=== PATIENT | male | born 1945 | race Caucasian/White ===

== ENCOUNTER 2023-02-15 12:50 | Inpatient (IN) | payer MEDICARE, SELFPAY ==
[2023-02-15] VITALS (12 sets, daily range): BP systolic 163–206; BP diastolic 75–103; PULSE 78–102; RESP 13–17; TEMP 36.3–37.4; O2SAT 96–100; BMI 22.1; BMI 23.0
--- NOTE | 2023-02-15 13:08 | ECG_ITS ---
APPROVED REPORT Exam: Resting ECG HR:100 bpm ECG Measurements Heart Rate 100 AXES WA 187 P 99 QRSd 110 QRS 96 QT 309 T -45 QTc 366 Conclusion SINUS TACHYCARDIA BORDERLINE RIGHT AXIS DEVIATION [QRS AXIS > 90] Marked artifact limits interpretation ABNORMAL ECG UNCONFIRMED REPORT Electronically signed by : Alvaro Gonzales MD 02/15/2023 16:28:58
--- NOTE | 2023-02-15 13:15 | PC.NURSE ---
Assumed care of patient at this time
--- NOTE | 2023-02-15 13:21 | XR_ITS ---
FINAL REPORT CLINICAL HISTORY: fall FINDINGS: SINGLE-VIEW CHEST The heart size is normal. The mediastinum is normal. There are linear densities in both hemithoraces, probably due to skin folds. There are posterior left 3rd through through 9th rib fractures, age indeterminate. There is no pneumothorax. IMPRESSION: Posterior left rib fractures, age indeterminate. Reviewed, Interpreted and Dictated by Lucas Skaggs MD Transcribed by Amanda Rodriguez Authenticated and [facility]
--- NOTE | 2023-02-15 13:21 | CT_ITS ---
FINAL REPORT TECHNIQUE: Multiple axial CT images were performed from the foramen magnum to the vertex without enhancement. This study was performed with techniques to keep radiation doses as low as reasonably achievable (ALARA). Individualized dose reduction techniques using automated exposure control or adjustment of mA and/or kV according to the patient's size were employed. CLINICAL HISTORY: fall FINDINGS: The ventricles are enlarged. There is [id number] atrophy. There are extensive changes of chronic microvascular ischemia. There is no evidence of hemorrhage. No masses are identified. No extra-axial fluid is seen. There is abnormal soft tissue swelling in the right periorbital region consistent with soft tissue contusion. There is mucoperiosteal thickening and air-fluid level in the right maxillary sinus consistent with acute and chronic maxillary sinusitis. IMPRESSION: Atrophy and chronic changes without acute process. Acute and chronic maxillary sinusitis. Soft tissue contusion in the right periorbital region. Reviewed, Interpreted and Dictated by Lucas Skaggs MD Transcribed by Amanda Rodriguez Authenticated and [facility]
--- NOTE | 2023-02-15 13:21 | XR_ITS ---
FINAL REPORT CLINICAL HISTORY: fall, skin injury FINDINGS: Right shoulder Three views were obtained. There is no acute fracture or dislocation. There are mild hypertrophic changes of the AC joint. No soft tissue abnormality is identified. IMPRESSION: No acute process. Reviewed, Interpreted and Dictated by Lucas Skaggs MD Transcribed by Amanda Rodriguez Authenticated and . [facility]
--- NOTE | 2023-02-15 13:21 | XR_ITS ---
FINAL REPORT CLINICAL HISTORY: fall FINDINGS: Pelvis Two views were obtained. There is no acute fracture or dislocation. Left hip prosthesis is identified. There is fragmentation and ossific density superior to the greater trochanter. No acute soft tissue abnormality is identified. IMPRESSION: No acute process. Reviewed, Interpreted and Dictated by Lucas Skaggs MD Transcribed by Amanda Rodriguez Authenticated and [facility]
--- NOTE | 2023-02-15 13:21 | CT_ITS ---
FINAL REPORT TECHNIQUE: Axial images were obtained of the cervical spine by computed tomography. Coronal and sagittal reconstruction process performed. This study was performed with techniques to keep radiation doses as low as reasonably achievable (ALARA). Individualized dose reduction techniques using automated exposure control or adjustment of mA and/or kV according to the patient''s size were employed. CLINICAL HISTORY: fall FINDINGS: There is mild anterior osteophyte formation throughout the cervical spine. There is moderate disc space narrowing at C6-7. There is no malalignment. There are posterior osteophytes at C6-7 with high-grade right and moderate left neural foraminal narrowing. No acute fracture is identified. IMPRESSION: Degenerative changes without acute fracture. Reviewed, Interpreted and Dictated by Lucas Skaggs MD Transcribed by Amanda Rodriguez Authenticated and [facility]
--- NOTE | 2023-02-15 13:25 | PC.NURSE ---
respiratory notified of vbg order and blood in lab
[2023-02-15 13:31] LABS: VBG HCO3 24.8 mmol/L (23-30); VBG Oxygen Saturation 59.4 % (50-70); VBG PCO2 47.3 mmol/L (35-51); VBG PH 7.34 mmol/L (7.31-7.41); VBG PO2 31.2 mmol/L (28-40); VBG Total CO2 26.3 mmol/L (23-27)
--- NOTE | 2023-02-15 13:33 | PC.NURSE ---
Attempted to straight stick pt twice for second set of blood cultures and was unsuccessful. Called LAB to have them come stick the pt
[2023-02-15 13:34] LABS: Chloride 105 mmol/L (98-107)
[2023-02-15 13:35] LABS: Potassium 3.1 mmoL/L (3.5-5.1); Sodium 147 mmol/L (136-145)
--- NOTE | 2023-02-15 13:35 | CT_ITS ---
FINAL REPORT TECHNIQUE: After the administration of intravenous contrast, axial images were obtained through the abdomen and pelvis by computed tomography. The study was performed with techniques to keep radiation dose as low as reasonably achievable, (ALARA). Individual dose reduction techniques using automated exposure control or adjustment of mA and/or kV according to the patient's size were employed. CLINICAL HISTORY: jaundice appearance FINDINGS: Abdomen: The lung bases are clear. The liver parenchyma is homogeneous. The gallbladder is present. There are calcified granulomas in the spleen. There is bilateral adrenal hyperplasia. The pancreas and kidneys appear unremarkable. The aorta is normal in caliber. There is no free fluid or adenopathy. There is abnormal mucosal thickening throughout the 2nd and 3rd portions of the duodenal. Mucosa measures up to 1 cm in thickness. Pelvis: The appendix is not identified. Davis balloon catheter seen in the urinary bladder. There is a moderate amount of stool seen throughout the colon. There is no free fluid or adenopathy. Streak artifact is seen arising from left hip prosthesis. No acute fracture is identified. There is a hemangioma throughout the L1 vertebrae. IMPRESSION: No biliary ductal dilatation identified. Abnormal mucosal thickening in the 2nd and 3rd portions of the duodenal of uncertain significance, may represent nonspecific duodenitis. Upper endoscopy is recommended. Reviewed, Interpreted and Dictated by Lucas Skaggs MD Transcribed by Amanda Rodriguez Authenticated and [facility]
[2023-02-15 13:37] LABS: Alanine Aminotransferase 116 U/L (12-78); Anion Gap 15.1 mEq/L (5-15); Aspartate Amino Transferase 315 U/L (17-59); Blood Urea Nitrogen 36 mg/dl (9-20); Carbon Dioxide 30 mmol/L (22.0-30.0); Creatinine Clearance Estimated 66 mL/min (50-200); Estimated Glomerular Filt Rate 93 ml/min (>60); GFR (African American) 113 ML/MIN (>60)
[2023-02-15 13:38] LABS: Albumin Level 4.8 g/dl (3.5-5.0); Albumin/Globulin Ratio 1.5 (1.1-1.8); Alkaline Phosphatase 89 U/L (38-126); Bilirubin,Total 4.2 mg/dl (0.2-1.3); Globulin 3.3 g/dL (1.3-3.2); Glucose 132 mg/dl (74-100); Lipase 43 U/L (23-300); Total Protein,Serum 8.1 g/dl (6.3-8.2)
[2023-02-15 13:42] LABS: Basophils % 0.2 % (0.1-2.0); Hematocrit 49.9 % (42.0-52.0); Hemoglobin 17.3 g/dL (14.1-18.0); Lymphocytes # 0.8 K/mm3 (0.7-4.5); Lymphocytes % 4.5 % (10-50); Mean Corpuscular HGB Conc 34.6 g/dL (31.8-35.4); Mean Corpuscular Volume 98.3 fl (80-94); Mean Platelet Volume 8.7 fl (7.4-10.4); Monocytes # 0.7 K/mm3 (0.1-1.0); Neutrophils # 15.3 K/mm3 (1.8-7.8); Neutrophils % 91.3 % (37.0-80.0); Platelet Count 184 K/mm3 (142-424); Red Blood Count 5.08 M/mm3 (4.60-6.20); Red Cell Distribution Width 12.8 % (11.5-17.5); White Blood Count 16.7 K/mm3 (4.8-10.8)
[2023-02-15 13:45] LABS: Lactic Acid 2.8 mmol/L (0.7-2.1); MANUAL DIFFERENTIAL MANUAL DIFFERENTIAL (MANUAL DIFF)
--- NOTE | 2023-02-15 13:45 | PC.NURSE ---
RAD at BS for
--- NOTE | 2023-02-15 13:49 | PC.NURSE ---
LAB at to draw blood
[2023-02-15 13:54] LABS: Troponin I 0.03 ng/ml (0.00-0.034)
--- NOTE | 2023-02-15 13:54 | CT_ITS ---
FINAL REPORT TECHNIQUE: Thin section axial CT images with coronal reformats were obtained through the neck after the administration of IV contrast. This study was performed with techniques to keep radiation doses as low as reasonably achievable (ALARA). Individualized dose reduction techniques using automated exposure control or adjustment of mA and/or kV according to the patient''s size were employed. CLINICAL HISTORY: voice changes/ weight loss FINDINGS: There is mucoperiosteal thickening and air-fluid level in the right maxillary sinus. There are small scattered cervical lymph nodes. Mild vascular calcification is seen at the carotid bifurcations. No dominant mass is identified. IMPRESSION: Acute and chronic right maxillary sinusitis. Reviewed, Interpreted and Dictated by Lucas Skaggs MD Transcribed by Amanda Rodriguez Authenticated and [facility]
[2023-02-15 14:01] LABS: Microscopic, Urine URINE MICROSCOPIC (MICROSCOPIC)
[2023-02-15 14:08] LABS: Lymphocytes % 5 % (10-50); Monocytes % 4 % (2-9); Neutrophils % 91 % (42-76); Total Cells Counted 100
[2023-02-15 14:08] LABS: Appearance,Urine CLEAR (Clear); Blood, Urine 3+ (Negative); Color,Urine YELLOW (Yellow); Glucose,Urine (UA) Negative (Negative); Ketones,Urine 2+ (Negative); Leukocyte Esterase,Urine Negative (Negative); Nitrate,Urine Negative (Negative); PH,Urine 6.5 (5.0-8.5); Protein,Urine 3+ (Negative); Specific Gravity, Urine >= 1.030 (1.005-1.030); Urobilinogen,Urine 0.2 EU/dl (0.2)
[2023-02-15 14:09] LABS: Platelet Estimate Normal; RBC Morphology Normal
[2023-02-15 14:15] LABS: Creatine Kinase 6396 U/L (55-170)
--- NOTE | 2023-02-15 14:15 | PC.NURSE ---
Went to hang ABX; patient heading to CT.
--- NOTE | 2023-02-15 14:15 | PC.NURSE ---
Pt gone to RAD via stretcher for CT
[2023-02-15 14:20] LABS: Bilirubin,Urine Negative (Negative)
--- NOTE | 2023-02-15 14:43 | PC.NURSE ---
Pt returned from RAD and repositioned in bed for comfort. No other needs voiced at this time. Call light within reach
[2023-02-15 14:52] LABS: WBC,Urine Occasional #/hpf (0-3)
--- NOTE | 2023-02-15 15:05 | PC.NURSE ---
Rounded on patient; call light within reach of patient
--- NOTE | 2023-02-15 15:30 | PC.NURSE ---
Rounded on patient; call light within reach
--- NOTE | 2023-02-15 15:43 | HMH.EDGENADL ---
Discharge Plan Disposition Patient Disposition: Still a Patient Chief Complaint: Fall Referrals Follow up/Referrals: Provider,MD Sandra [Primary Care Provider] - See instructions Clinical Impressions Clinical Impression: Rhabdomyolysis Discharge ED Provider: Abigail Whatley General Adult HPI <Amada Girard MD - Last Filed: 02/15/23 16:11> General Chief complaint: Fall Stated complaint: fall ao weakness Time Seen by Provider: 02/15/23 13:11 Mode of Arrival: EMS Source of Information: Patient Limitations: Altered Mental Status Description of Symptoms (Recalled from ER Triage Doc. by RN): 77 yo M presents to ED from home. pt lives by himself. police in [facility] received call for wellness check. when they arrived pt was in the floor for unknown amount of time. pt is unable to answer questions related to fall or down time. unable to get accurate hx from pt. History of Present Illness HPI narrative: This 77-year-old male presents via EMS for evaluation. Patient lives on his own and first responders have been called for wellness check multiple times in the last week. Patient has repeatedly refused to be brought to the hospital despite requiring assistance getting up from the floor. Today patient was willing to be brought to the hospital and presents for further evaluation. He is oriented to self, location, year, however he is unable to answer questions related to how long he was on the floor. EMS did find him on the floor but they do not know how long he was down. Patient states he has been losing weight. He is also been having voice changes over the last 6 to 8 weeks. He does not have pain with swallowing. He states he has mild discomfort in his abdomen but no real pain. He states his oral intake has been poor. He denies any nausea, vomiting, or diarrhea. He has a large wound on his right shoulder that he states is from a prior fall and being stuck up against stuff in his house. Related Data Allergies Allergy/AdvReac Type Severity Reaction Status Date / Time No Known Allergies Allergy Verified 02/15/23 13:21 PFSH <Amada Girard MD - Last Filed: 02/15/23 16:11> [facility] Disclaimer: The information contained in this section may have been updated after the patient was seen, as this information can be updated by other users. Social History Smoking Status: Never smoker alcohol intake: current current occupational status: unemployed Travel in the last 8 weeks: None <Amada Girard MD - Last Filed: 02/15/23 16:11> ROS Obtained: Yes All systems reviewed & no additional complaints except as documented Constitutional Constitutional: Denies chills, Denies fever(s), Denies headache(s), Reports weakness (Generalized) and Reports weight loss Eyes Eyes: Denies change in vision ENT Ears, Nose, Mouth, and Throat: Reports change in voice, Denies dizziness, Denies dysphagia, Denies headache(s), Denies nasal congestion and Denies sore throat Cardiovascular Cardiovascular: Denies chest pain, Denies dyspnea and Denies leg edema Respiratory Respiratory: Denies cough and Denies dyspnea Gastrointestinal Gastrointestingal: Reports abdominal pain; Denies constipation, diarrhea, dysphagia, nausea or vomiting Genitourinary Male Genitourinary: Denies difficulty urinating Musculoskeletal Musculoskeletal: Denies arthralgias, Denies myalgias, Denies numbness and Denies tingling Integumentary/Breasts Skin/Breast: Reports change in pigmentation, Reports jaundice and Reports wounds Neurologic Neurologic: Denies dizziness, Denies headache(s), Denies numbness, Denies tingling and Reports weakness (Generalized) Physical Exam <Amada Girard MD - Last Filed: 02/15/23 16:11> General General appearance: alert Comment: Ill-appearing, thin, unkempt Head Head exam: normocephalic and other (Well-healing laceration above right eyebrow) Eye Eye exam: Present PERRL, EOMI, scleral icterus and periorbital swelling (Bilateral periorbital swelli
[2023-02-15 16:08] LABS: Reflex Lactic Add Lactic Reflex
--- NOTE | 2023-02-15 16:15 | PC.NURSE ---
house aware of admission
[2023-02-15 16:20] LABS: Lactic Acid Follow Up (RFLX 1) 1.4 mmol/L (0.7-2.1)
--- NOTE | 2023-02-15 16:43 | PC.NURSE ---
Report given to Bismark THOMAS
--- NOTE | 2023-02-15 17:23 | PC.NURSE ---
arrived by stretcher from ED
--- NOTE | 2023-02-15 17:35 | EXP.HP ---
History of Present Illness *Admission Date: 02/15/23 *Reason for visit:: Fall *History of present illness: Patient is a 77-year-old male who presents to the hospital due to generalized weakness, recurrent falls. Patient was found down in his home, he was also noticed to have large wound on his right shoulder from previous falls. Patient was recommended by home wellness check agency to come to the hospital, patient attributes multiple times. He also has difficulty swallowing, he denied diarrhea constipation dysuria fever chills. [facility] Disclaimer: The information contained in this section may have been updated after the patient was seen, as this information can be updated by other users. Medical History (Updated 02/15/23 @ 19:02 by Rosmery Kent MD) History of left heart catheterization (LHC) Hyperlipidemia Hypertension Family History (Updated 02/15/23 @ 17:39 by Anny Wood, MARTHA) Other No significant family history Social History (Updated 02/15/23 @ 17:41 by Anny Wood RN) Smoking Status: Never smoker alcohol intake: current current occupational status: unemployed Travel in the last 8 weeks: None Review of Systems Review of Systems Review of systems (narrative): as per HPI Constitutional Constitutional: Denies headache(s) and Reports weakness (Generalized) ENT Ears, Nose, Mouth, and Throat: Denies dizziness and Denies headache(s) *Musculoskeletal Musculoskeletal: Denies numbness and Denies tingling *Neurologic Neurologic: Denies dizziness, Denies headache(s), Denies numbness, Denies tingling and Reports weakness (Generalized) Meds Home Medications and Allergies Home Medications Medication Instructions Recorded Confirmed Type No Known Home Medications 02/15/23 02/15/23 History New Prescriptions to Start Prescriptions: Allergies Allergy/AdvReac Type Severity Reaction Status Date / Time No Known Allergies Allergy Verified 02/15/23 17:31 Exam Data for Last 24 hours Vital signs and Labs for Last 24 Hours: Temp Pulse Resp BP Pulse Ox O2 Del Method 97.3 F L 82 15 171/90 H 98 Room Air 02/15/23 17:09 02/15/23 17:09 02/15/23 17:09 02/15/23 17:09 02/15/23 17:00 02/15/23 17:09 Laboratory Results - last 24 hr 02/15/23 13:04: Urine Color Yellow, Urine Appearance Clear, Urine pH 6.5, Ur Specific [place] >= 1.030, Urine Protein 3+, Urine Glucose (UA) Negative, Urine Ketones 2+, Urine Blood 3+, Urine Nitrate Negative, Urine Bilirubin Negative, Urine Urobilinogen 0.2, Ur Leukocyte Esterase Negative, Urine RBC None, Urine WBC Occasional, Ur Squamous Epith Cells None, Urine Bacteria None 02/15/23 13:15: WBC 16.7 H, RBC 5.08, Hgb 17.3, Hct 49.9, MCV 98.3 H, MCH 34.0 H, MCHC 34.6, RDW 12.8, Plt Count 184, MPV 8.7, Neut % (Auto) 91.3 H, Lymph % (Auto) 4.5 L, [place] % (Auto) 4.0, Eos % (Auto) 0.0 L, Baso % (Auto) 0.2, Neut # (Auto) 15.3 H, Lymph # (Auto) 0.8, [place] # (Auto) 0.7, Eos # (Auto) 0.0, Baso # (Auto) 0.0, Total Counted 100, Neutrophils % (Manual) 91 H, Lymphocytes % (Manual) 5 L, Monocytes % (Manual) 4, Platelet Estimate Normal, RBC Morphology Normal, Sodium 147 H, Potassium 3.1 L, Chloride 105, Carbon Dioxide 30, Anion Gap 15.1 H, BUN 36 H, Creatinine 0.80, Estimated Creat Clear 66, Estimated GFR 93, Est GFR ( Amer) 113, Glucose 132 H, Lactate 2.8 H, Calcium 10.0, Total Bilirubin 4.2 H, AST 315 H*, ALT 116 H, Alkaline Phosphatase 89, Total Creatine Kinase 6396 H*, Troponin I 0.03, Total Protein 8.1, Albumin 4.8, Globulin 3.3 H, Albumin/Globulin Ratio 1.5, Lipase 43 02/15/23 13:21: VBG pH 7.34, VBG pCO2 47.3, VBG pO2 31.2, VBG HCO3 24.8, VBG Total CO2 26.3, VBG O2 Saturation 59.4, VBG Base Excess -1.0 02/15/23 14:56: Lactate 1.4 I & O for Last 24 hours: Intake & Output 11/02/13/23 02/14/23 02/15/23 23:59 23:59 23:59 23:59 Output Total 800 / 800 Balance -800 / -800 Weight 77.111 kg Constitutional Constitutional: no acute distress *R
[2023-02-15 18:14] LABS: Lactic Acid 1.6 mmol/L (0.7-2.1)
--- NOTE | 2023-02-15 19:01 | PC.NURSE ---
meds on external med list had not been filled since August, pt states he had ran out of them
--- NOTE | 2023-02-15 19:15 | PC.WOUNDNOTE ---
Right side neck area
--- NOTE | 2023-02-15 19:17 | PC.WOUNDNOTE ---
Coccyx and right hip area
[2023-02-15 22:16] LABS: POC Glucose,Bedside 100 (70-110)
[2023-02-16] VITALS (8 sets, daily range): BP systolic 152–192; BP diastolic 79–98; PULSE 79–100; RESP 16–18; TEMP 36.4–37.6; O2SAT 96–98; BMI 20.1
[2023-02-16 06:23] LABS: POC Glucose,Bedside 103 (70-110)
[2023-02-16 07:20] LABS: Chloride 113 mmol/L (98-107)
[2023-02-16 07:21] LABS: Sodium 146 mmol/L (136-145)
[2023-02-16 07:23] LABS: Blood Urea Nitrogen 27 mg/dl (9-20); Creatinine Clearance Estimated 58 mL/min (50-200); Estimated Glomerular Filt Rate 109 ml/min (>60); GFR (African American) 132 ML/MIN (>60)
[2023-02-16 07:24] LABS: Anion Gap 8.7 mEq/L (5-15); Calcium 8.6 mg/dl (8.4-10.2); Carbon Dioxide 27 mmol/L (22.0-30.0); Glucose 106 mg/dl (74-100)
[2023-02-16 07:35] LABS: Basophils % 0.1 % (0.1-2.0); Lymphocytes # 0.9 K/mm3 (0.7-4.5); Mean Corpuscular Hemoglobin 33.4 pg (27.0-31.2); Monocytes # 0.5 K/mm3 (0.1-1.0); Neutrophils # 10.1 K/mm3 (1.8-7.8); White Blood Count 11.5 K/mm3 (4.8-10.8)
[2023-02-16 07:43] LABS: Eosinophils % 0.2 % (0.1-12.0); Hematocrit 40.8 % (42.0-52.0); Lymphocytes % 7.7 % (10-50); Mean Corpuscular HGB Conc 34.5 g/dL (31.8-35.4); Mean Corpuscular Volume 96.8 fl (80-94); Mean Platelet Volume 8.9 fl (7.4-10.4); Monocytes % 4.7 % (1.7-9.3); Neutrophils % 87.3 % (37.0-80.0); Platelet Count 123 K/mm3 (142-424); Red Blood Count 4.21 M/mm3 (4.60-6.20)
[2023-02-16 07:46] LABS: Hemoglobin 14.1 g/dL (14.1-18.0)
[2023-02-16 07:47] LABS: MANUAL DIFFERENTIAL MANUAL DIFFERENTIAL (MANUAL DIFF)
[2023-02-16 07:50] LABS: Potassium 2.7 mmoL/L (3.5-5.1)
--- NOTE | 2023-02-16 07:51 | PC.NURSE ---
pt is a poor historian. he has difficulty communicating and finding words. able to state first name but thats it.
--- NOTE | 2023-02-16 08:10 | PC.NURSE ---
attempted to call hospitalist to report critical labs. awaiting a call back
--- NOTE | 2023-02-16 08:37 | EXP.PHA.CONS ---
Pharmacy Consult Date: 02/16/23 Time: 08:38 Referring provider: DR. WALTERS Reason for Consult:: VANCOMYCIN DOSING Allergies Allergy/AdvReac Type Severity Reaction Status Date / Time No Known Allergies Allergy Verified 02/15/23 17:31 Home Medications Medication Instructions Recorded Confirmed Type No Known Home Medications 02/15/23 02/15/23 History New Prescriptions to Start Prescriptions: Height: 1.83 m Weight: 67.449 kg Laboratory Results:: Laboratory Results - last 24 hr 02/15/23 13:04: Urine Color Yellow, Urine Appearance Clear, Urine pH 6.5, Ur Specific [place] >= 1.030, Urine Protein 3+, Urine Glucose (UA) Negative, Urine Ketones 2+, Urine Blood 3+, Urine Nitrate Negative, Urine Bilirubin Negative, Urine Urobilinogen 0.2, Ur Leukocyte Esterase Negative, Urine RBC None, Urine WBC Occasional, Ur Squamous Epith Cells None, Urine Bacteria None 02/15/23 13:15: WBC 16.7 H, RBC 5.08, Hgb 17.3, Hct 49.9, MCV 98.3 H, MCH 34.0 H, MCHC 34.6, RDW 12.8, Plt Count 184, MPV 8.7, Neut % (Auto) 91.3 H, Lymph % (Auto) 4.5 L, [place] % (Auto) 4.0, Eos % (Auto) 0.0 L, Baso % (Auto) 0.2, Neut # (Auto) 15.3 H, Lymph # (Auto) 0.8, [place] # (Auto) 0.7, Eos # (Auto) 0.0, Baso # (Auto) 0.0, Total Counted 100, Neutrophils % (Manual) 91 H, Lymphocytes % (Manual) 5 L, Monocytes % (Manual) 4, Platelet Estimate Normal, RBC Morphology Normal, Sodium 147 H, Potassium 3.1 L, Chloride 105, Carbon Dioxide 30, Anion Gap 15.1 H, BUN 36 H, Creatinine 0.80, Estimated Creat Clear 66, Estimated GFR 93, Est GFR ( Amer) 113, Glucose 132 H, Lactate 2.8 H, Calcium 10.0, Total Bilirubin 4.2 H, AST 315 H*, ALT 116 H, Alkaline Phosphatase 89, Total Creatine Kinase 6396 H*, Troponin I 0.03, Total Protein 8.1, Albumin 4.8, Globulin 3.3 H, Albumin/Globulin Ratio 1.5, Lipase 43 02/15/23 13:21: VBG pH 7.34, VBG pCO2 47.3, VBG pO2 31.2, VBG HCO3 24.8, VBG Total CO2 26.3, VBG O2 Saturation 59.4, VBG Base Excess -1.0 02/15/23 14:56: Lactate 1.4 02/15/23 18:00: Lactate 1.6 02/15/23 22:08: POC Glucose 100 02/16/23 05:37: POC Glucose 103 02/16/23 07:04: WBC 11.5 H D, RBC 4.21 L, Hgb 14.1 D, Hct 40.8 L, MCV 96.8 H, MCH 33.4 H, MCHC 34.5, RDW 13.0, Plt Count 123 L D, MPV 8.9, Neut % (Auto) 87.3 H, Lymph % (Auto) 7.7 L, [place] % (Auto) 4.7, Eos % (Auto) 0.2, Baso % (Auto) 0.1, Neut # (Auto) 10.1 H, Lymph # (Auto) 0.9, [place] # (Auto) 0.5, Eos # (Auto) 0.0, Baso # (Auto) 0.0, Sodium 146 H, Potassium 2.7 L*, Chloride 113 H, Carbon Dioxide 27, Anion Gap 8.7, BUN 27 H, Creatinine 0.70, Estimated Creat Clear 58, Estimated GFR 109, Est GFR ( Amer) 132, Glucose 106 H, Calcium 8.6 Medical History: Medical History (Updated 02/15/23 @ 19:02 by Rosmery Walters MD) History of left heart catheterization (LHC) Hyperlipidemia Hypertension Assessment and Plan Assessment and plan all Dx Assessment and Plan for all problems:: Pharmacokinetic dosing service Objective: Patient: Floor: Age: 77 yo Serum creatinine: 0.70 mg/dL Height: 72.0 Inches Weight (kg): 67.4 Assessment: IBW (kg): 77.60 Dosing wt(kg): 67.4 Estimated Creatinine clearance (ml/min): 82.9 CRCL method: Cockcroft and Gault using ibw(default). Drug selected: Vancomycin Loading dose (mg): Vd (liters): 53.9 (factor used: 0.8 L/kg) Teo (hr-1): 0.073 Half life (hrs): 9.50 CLvanco=?? 3.935 L/hr Recommended dose: 1000 mg Interval: 12 hrs Infusion time (hrs): 2.0 Predicted peak (mcg/mL): 29.6 Predicted trough (mcg/mL): 14.26 Total body weight is being used for vancomycin dosing. Recommendations: Give Vancomycin 1000 mg q 12 hrs with an expected Cpeak of 29.6 mcg/ml and an expected Ctrough of 14.26 mcg/ml AUC 0-24 /LESTER Data: LESTER 0.5 mcg/mL:?? AUC/LESTER:? 1016.5 LESTER 1.0 mcg/mL:??
[2023-02-16 08:47] LABS: Lymphocytes % 13 % (10-50); Monocytes % 3 % (2-9); Neutrophils % 84 % (42-76); Platelet Estimate Slight Decrease; RBC Morphology Normal; Total Cells Counted 100
--- NOTE | 2023-02-16 09:17 | PC.NURSE ---
pt is way more alert during assessment this am. He is appropriate although difficult to understand, he is alert and oriented. He states he has had multiple falls and has no support @ home. we are turning and repositioning him. jarrett in place. he is drinking water @ bedside
[2023-02-16 11:23] LABS: POC Glucose,Bedside 113 (70-110)
--- NOTE | 2023-02-16 15:12 | HMH.PTEV ---
Physical Therapy Evaluation Rehab PT IP Evaluation Start: 02/15/23 17:40 Freq: ONCE Status: Active Protocol: Document 02/16/23 14:59 PDESEROUX (Rec: 02/16/23 15:12 PDESEROUX [id number]) Subjective/History History History Pt. is a 77 year old male who presents to 2nd floor [facility] Inpatient setting for the initial Physical Therapy Inpatient evaluation this date (02/16/23) secondary to a fall at home. Pt. reports he was asleep in his bed when he rolled off the bed and fell on the floor. Pt. reports he layed there for 6 hours d/t not having to strength to get himself back up off the floor. Pt. reports he was unable to get to a phone d/t weakness. Pt. reports he lives along w/ no family near by. Pt. reports he was IND. ambulating household and community distances w/ [facility]PC prior to this fall. PMH includes Hypertension, Hyperlipidemia, S/P RLE WILLEM, and LHC or left heart catherterization. Subjective Subjective Pt. was in recumbent supine position in hospital bed after verbal consent to enter into room this date. Pt. reports, ' 'I'm sore all over. Pt. presents w/ multiple skin abrasions localized to RUE shldr, RLE hip, R-sided lumbar region, RLE lower limb. New diagnosis of cancer in past 12 No months? Rehab PT IP Eval Objective Appearance Patient Behavior Appropriate,Cooperative, Fatigued,Fearful Patient Orientation Person,Place,Birthday, Situation Difficulty following instructions mild Speech Pattern Appropriate,Coherent,Baseline Function Ambulation Patient Able to Ambulate No Balance Ability to Arise Able, uses arms to help Sitting Balance Leans or slides in chair Standing Balance Unsteady Dynamic Sitting Balance Ability Poor Dynamic Standing Balance Ability
--- NOTE | 2023-02-16 16:13 | EXP.PN ---
Subjective *Date: 02/17/23 *Time: 09:04 Interval history: patient was seen and evaluated at the bedside. denies chest pain, shortness of breath, nausea, vomiting, abdominal pain. Patient does not have any complaints at this time. feels better overall Exam Data for Last 24 hours Vital signs and Labs for Last 24 Hours: Temp Pulse Resp BP Pulse Ox O2 Del Method 97.6 F 82 18 192/95 H 98 Room Air 02/16/23 15:55 02/16/23 15:55 02/16/23 15:55 02/16/23 15:55 02/16/23 15:55 02/16/23 15:55 Laboratory Results - last 24 hr 02/15/23 14:56: Lactate 1.4 02/15/23 18:00: Lactate 1.6 02/15/23 22:08: POC Glucose 100 02/16/23 05:37: POC Glucose 103 02/16/23 07:04: WBC 11.5 H D, RBC 4.21 L, Hgb 14.1 D, Hct 40.8 L, MCV 96.8 H, MCH 33.4 H, MCHC 34.5, RDW 13.0, Plt Count 123 L D, MPV 8.9, Neut % (Auto) 87.3 H, Lymph % (Auto) 7.7 L, [place] % (Auto) 4.7, Eos % (Auto) 0.2, Baso % (Auto) 0.1, Neut # (Auto) 10.1 H, Lymph # (Auto) 0.9, [place] # (Auto) 0.5, Eos # (Auto) 0.0, Baso # (Auto) 0.0, Total Counted 100, Neutrophils % (Manual) 84 H, Lymphocytes % (Manual) 13, Monocytes % (Manual) 3, Platelet Estimate Slight decrease, RBC Morphology Normal, Sodium 146 H, Potassium 2.7 L*, Chloride 113 H, Carbon Dioxide 27, Anion Gap 8.7, BUN 27 H, Creatinine 0.70, Estimated Creat Clear 58, Estimated GFR 109, Est GFR ( Amer) 132, Glucose 106 H, Calcium 8.6 02/16/23 11:14: POC Glucose 113 H I & O for Last 24 hours: Intake & Output 02/13/23 02/14/23 02/15/23 02/16/23 23:59 23:59 23:59 23:59 Intake Total 920 / 920 Output Total 800 / 2000 1700 / 1700 Balance -800 / -1950 -780 / -780 Weight 66.848 kg 67.449 kg Constitutional Constitutional: no acute distress *Routine HEENT Exam Head: Present normocephalic Eye: Present EOMI and PERRL ENT: Present mucous membranes moist *Routine Neck Exam Neck: Present supple; Absent lymphadenopathy *Routine Respiratory Exam Respiratory: Present CTA bilaterally *Routine Cardiovascular Exam Cardiovascular: Present RRR *Routine Abdominal Exam Abdominal: Present soft and normoactive bowel sounds; Absent tenderness *Routine Extremities Exam Extremities: Absent cyanosis, clubbing or edema *Routine Skin Exam Skin: Present warm; Absent rash *Routine Neurological Exam Neurological: Present alert and oriented X3 Assessment and Plan *Assessment and plan (1) Rhabdomyolysis: Status: Acute Category: Medical Code(s): M62.82 - Rhabdomyolysis (2) Falls: Status: Acute Category: Medical Code(s): W19.XXXA - Unspecified fall, initial encounter (3) Dehydration: Status: Acute Category: Medical Code(s): E86.0 - Dehydration Plan Patient is a 77-year-old male who presents to the hospital due to generalized weakness, recurrent falls. Patient was found down in his home, he was also noticed to have large wound on his right shoulder from previous falls. Patient was recommended by home wellness check agency to come to the hospital, patient attributes multiple times. He also has difficulty swallowing, he denied diarrhea constipation dysuria fever chills. Assessment Recurrent falls Rhabdomyolysis Leukocytosis Lactic acidosis Dehydration Multiple body wounds Duodenitis Plan IV fluid therapy Monitor lactic acid Monitor CK level Consult PT/OT Fall precautions Start empirical vancomycin, Zosyn Check blood culture
[2023-02-16 17:16] LABS: Potassium 2.9 mmoL/L (3.5-5.1)
--- NOTE | 2023-02-16 17:26 | PC.NURSE ---
attempted to contact MD to report repeat critical potassium. awaiting a return call
--- NOTE | 2023-02-16 18:03 | PC.NURSE ---
spoke with hospitalist regarding critical lab result. 40meq of po potassium ordered.
--- NOTE | 2023-02-16 18:54 | PC.NURSE ---
i put nonadherant dressings to r neck/shoulder with abd pad and perforated tape. wounds cleansed. pt tolerated well. dressings changed
[2023-02-16 22:12] LABS: POC Glucose,Bedside 99 (70-110)
[2023-02-17] VITALS (7 sets, daily range): BP systolic 154–172; BP diastolic 80–91; PULSE 60–90; RESP 14–18; TEMP 36.5–37.5; O2SAT 95–97; BMI 20.9
[2023-02-17 05:07] LABS: POC Glucose,Bedside 106 (70-110)
[2023-02-17 08:09] LABS: Eosinophils % 0.1 % (0.1-12.0); Hematocrit 36.9 % (42.0-52.0); Hemoglobin 12.8 g/dL (14.1-18.0); Lymphocytes # 0.6 K/mm3 (0.7-4.5); Lymphocytes % 6.8 % (10-50); Mean Corpuscular HGB Conc 34.6 g/dL (31.8-35.4); Mean Corpuscular Hemoglobin 33.9 pg (27.0-31.2); Mean Corpuscular Volume 98.2 fl (80-94); Mean Platelet Volume 9.4 fl (7.4-10.4); Monocytes # 0.4 K/mm3 (0.1-1.0); Monocytes % 4.9 % (1.7-9.3); Neutrophils # 7.6 K/mm3 (1.8-7.8); Neutrophils % 88.2 % (37.0-80.0); Platelet Count 106 K/mm3 (142-424); Red Blood Count 3.76 M/mm3 (4.60-6.20); Red Cell Distribution Width 12.9 % (11.5-17.5); White Blood Count 8.6 K/mm3 (4.8-10.8)
[2023-02-17 08:14] LABS: Blood Urea Nitrogen 21 mg/dl (9-20); Carbon Dioxide 27 mmol/L (22.0-30.0); Chloride 112 mmol/L (98-107); Creatine Kinase 629 U/L (55-170); Creatinine Clearance Estimated 60 mL/min (50-200); Estimated Glomerular Filt Rate 130 ml/min (>60); GFR (African American) 158 ML/MIN (>60); MANUAL DIFFERENTIAL MANUAL DIFFERENTIAL (MANUAL DIFF)
[2023-02-17 08:16] LABS: Anion Gap 5.6 mEq/L (5-15); Calcium 7.8 mg/dl (8.4-10.2); Glucose 120 mg/dl (74-100); Sodium 142 mmol/L (136-145)
[2023-02-17 08:19] LABS: Potassium 2.6 mmoL/L (3.5-5.1)
--- NOTE | 2023-02-17 08:24 | PC.NURSE ---
spoke with regarding critical labs. He will put in new orders
--- NOTE | 2023-02-17 08:57 | ECG_ITS ---
APPROVED REPORT Exam: Resting ECG HR:75 bpm ECG Measurements Heart Rate 75 AXES MD 169 P 88 QRSd 94 QRS 79 QT 384 T 55 QTc 413 Conclusion SINUS RHYTHM NONSPECIFIC ST & T-WAVE ABNORMALITY BORDERLINE ECG WARNING: DATA QUALITY MAY AFFECT INTERPRETATION UNCONFIRMED REPORT Electronically signed by : Alvaro Gonzales MD 02/18/2023 17:39:39
[2023-02-17 09:08] LABS: Lymphocytes % 10 % (10-50); Monocytes % 4 % (2-9); Neutrophils % 86 % (42-76); Platelet Estimate Slight Decrease; Total Cells Counted 100
[2023-02-17 09:09] LABS: RBC Morphology Normal
[2023-02-17 09:34] LABS: Vancomycin,Trough 6.7 ug/mL (5.0-10.0)
--- NOTE | 2023-02-17 09:50 | PC.NURSE ---
reported vanc trough to pharmacist
--- NOTE | 2023-02-17 10:36 | EXP.PHA.CONS ---
Pharmacy Consult Date: 02/17/23 Time: 10:36 Referring provider: DR. WALTERS Reason for Consult:: VANCOMYCIN DOSE ADJUSTMENT Allergies Allergy/AdvReac Type Severity Reaction Status Date / Time No Known Allergies Allergy Verified 02/15/23 17:31 Home Medications Medication Instructions Recorded Confirmed Type No Known Home Medications 02/15/23 02/15/23 History New Prescriptions to Start Prescriptions: Height: 1.83 m Weight: 70.035 kg Laboratory Results:: Laboratory Results - last 24 hr 02/16/23 11:14: POC Glucose 113 H 02/16/23 17:00: Potassium 2.9 L* 02/16/23 20:30: POC Glucose 99 02/17/23 04:53: POC Glucose 106 02/17/23 07:41: WBC 8.6 D, RBC 3.76 L, Hgb 12.8 L, Hct 36.9 L, MCV 98.2 H, MCH 33.9 H, MCHC 34.6, RDW 12.9, Plt Count 106 L, MPV 9.4, Neut % (Auto) 88.2 H, Lymph % (Auto) 6.8 L, [place] % (Auto) 4.9, Eos % (Auto) 0.1, Baso % (Auto) 0.0 L, Neut # (Auto) 7.6, Lymph # (Auto) 0.6 L, [place] # (Auto) 0.4, Eos # (Auto) 0.0, Baso # (Auto) 0.0, Total Counted 100, Neutrophils % (Manual) 86 H, Lymphocytes % (Manual) 10, Monocytes % (Manual) 4, Platelet Estimate Slight decrease, RBC Morphology Normal, Sodium 142, Potassium 2.6 L*, Chloride 112 H, Carbon Dioxide 27, Anion Gap 5.6, BUN 21 H, Creatinine 0.60 L, Estimated Creat Clear 60, Estimated GFR 130, Est GFR ( Amer) 158, Glucose 120 H, Calcium 7.8 L, Total Creatine Kinase 629 H* D 02/17/23 09:01: Vancomycin Trough 6.7 Medical History: Medical History (Updated 02/15/23 @ 19:02 by Rosmery Walters MD) History of left heart catheterization (LHC) Hyperlipidemia Hypertension Assessment and Plan Assessment and plan all Dx Assessment and Plan for all problems:: Pharmacokinetic dosing service Objective: Patient: Floor: Age: 77 yo Serum creatinine: 0.60 mg/dL Height: 72.0 Inches Weight (kg): 70 Assessment: IBW (kg): 77.60 Dosing wt(kg): 70 Estimated Creatinine clearance (ml/min): 100.5 CRCL method: Cockcroft and Gault using ibw(default). Drug selected: Vancomycin Loading dose (mg): Vd (liters): 49.0 (factor used: 0.7 L/kg) Teo (hr-1): 0.088 Half life (hrs): 7.88 CLvanco=?? 4.312 L/hr Recommended dose: 1250 mg Interval: 12 hrs Infusion time (hrs): 2.0 Predicted peak (mcg/mL): 35.9 Predicted trough (mcg/mL): 14.89 Total body weight is being used for vancomycin dosing. Recommendations: Give Vancomycin 1250 mg q 12 hrs with an expected Cpeak of 35.9 mcg/ml and an expected Ctrough of 14.89 mcg/ml AUC 0-24 /LESTER Data: LESTER 0.5 mcg/mL:?? AUC/LESTER:? 1159.6 LESTER 1.0 mcg/mL:?? AUC/LESTER:? 579.8 --------- LESTER 1.5 mcg/mL:?? AUC/LESTER:? 386.5 LESTER 2.0 mcg/mL:?? AUC/LESTER:? 289.9 Thank you for the consult, will continue to follow. -PERLA POED
[2023-02-17 13:25] LABS: POC Glucose,Bedside 103 (70-110)
--- NOTE | 2023-02-17 15:40 | EXP.PN ---
Subjective *Date: 02/17/23 *Time: 15:40 Interval history: patient was seen and evaluated at the bedside. denies chest pain, shortness of breath, nausea, vomiting, abdominal pain. Patient does not have any complaints at this time. feels better overall Exam Data for Last 24 hours Vital signs and Labs for Last 24 Hours: Temp Pulse Resp BP Pulse Ox O2 Del Method 97.7 F 80 18 163/86 H 95 Room Air 02/17/23 11:28 02/17/23 12:00 02/17/23 11:28 02/17/23 11:28 02/17/23 11:28 02/17/23 13:00 Laboratory Results - last 24 hr 02/16/23 17:00: Potassium 2.9 L* 02/16/23 20:30: POC Glucose 99 02/17/23 04:53: POC Glucose 106 02/17/23 07:41: WBC 8.6 D, RBC 3.76 L, Hgb 12.8 L, Hct 36.9 L, MCV 98.2 H, MCH 33.9 H, MCHC 34.6, RDW 12.9, Plt Count 106 L, MPV 9.4, Neut % (Auto) 88.2 H, Lymph % (Auto) 6.8 L, [place] % (Auto) 4.9, Eos % (Auto) 0.1, Baso % (Auto) 0.0 L, Neut # (Auto) 7.6, Lymph # (Auto) 0.6 L, [place] # (Auto) 0.4, Eos # (Auto) 0.0, Baso # (Auto) 0.0, Total Counted 100, Neutrophils % (Manual) 86 H, Lymphocytes % (Manual) 10, Monocytes % (Manual) 4, Platelet Estimate Slight decrease, RBC Morphology Normal, Sodium 142, Potassium 2.6 L*, Chloride 112 H, Carbon Dioxide 27, Anion Gap 5.6, BUN 21 H, Creatinine 0.60 L, Estimated Creat Clear 60, Estimated GFR 130, Est GFR ( Amer) 158, Glucose 120 H, Calcium 7.8 L, Total Creatine Kinase 629 H* D 02/17/23 09:01: Vancomycin Trough 6.7 02/17/23 12:31: POC Glucose 103 I & O for Last 24 hours: Intake & Output 11/3002/15/23 02/16/23 02/17/23 23:59 23:59 23:59 23:59 Intake Total 1460 / 1580 1330 / 1330 Output Total 800 / 1999 1125 / 1125 Balance -800 / -1950 -590 / -470 Weight 66.848 kg 67.449 kg 70.035 kg Microbiology Reports for the Last 24 Hours: Microbiology 02/15/23 13:17 Blood Blood Culture - Preliminary Constitutional Constitutional: no acute distress *Routine HEENT Exam Head: Present normocephalic Eye: Present EOMI and PERRL ENT: Present mucous membranes moist *Routine Neck Exam Neck: Present supple; Absent lymphadenopathy Routine Chest/Breast/Axilla Exam Comments: R axillary wound noted *Routine Respiratory Exam Respiratory: Present CTA bilaterally *Routine Cardiovascular Exam Cardiovascular: Present RRR *Routine Abdominal Exam Abdominal: Present soft and normoactive bowel sounds; Absent tenderness *Routine Extremities Exam Extremities: Absent cyanosis, clubbing or edema *Routine Skin Exam Skin: Present warm; Absent rash Comments: has multiple wounds on R shoulder, thighs, back *Routine Neurological Exam Neurological: Present alert and oriented X3 Assessment and Plan *Assessment and plan (1) Rhabdomyolysis: Status: Acute Category: Medical Code(s): M62.82 - Rhabdomyolysis (2) Falls: Status: Acute Category: Medical Code(s): W19.XXXA - Unspecified fall, initial encounter (3) Dehydration: Status: Acute Category: Medical Code(s): E86.0 - Dehydration Plan Patient is a 77-year-old male who presents to the hospital due to generalized weakness, recurrent falls. Patient was found down in his home, he was also noticed to have large wound on his right shoulder from previous falls. Patient was recommended by home wellness check agency to come to the hospital, patient attributes multiple times. He also has difficulty swallowing, he denied diarrhea constipation dysuria fever chills. Assessment Recurrent falls Rhabdomyolysis multiple body wounds Leukocytosis Lactic acidosis Dehydration Multiple body wounds Duodenitis Plan IV fluid therapy Monitor lactic acid Monitor CK level - down from 6000s ---> 600s trauma work up reviewed and negative for any acute fractures GS consulted for a deep wound in R axilla Consult PT/OT - will need placement Fall precautions Start empirical vancomycin, Zosyn for suspected infected wounds Check blood culture - primlinary c
[2023-02-17 18:23] LABS: POC Glucose,Bedside 145 (70-110)
[2023-02-17 22:19] LABS: POC Glucose,Bedside 127 (70-110)
[2023-02-18] VITALS: BP 155/87; PULSE 79; PULSE 80; RESP 16; TEMP 36.9; O2SAT 95
[2023-02-18 00:10] LABS: Anion Gap 5.1 mEq/L (5-15); Blood Urea Nitrogen 18 mg/dl (9-20); Calcium 7.7 mg/dl (8.4-10.2); Carbon Dioxide 28 mmol/L (22.0-30.0); Chloride 109 mmol/L (98-107); Creatinine Clearance Estimated 60 mL/min (50-200); Estimated Glomerular Filt Rate 161 ml/min (>60); GFR (African American) 195 ML/MIN (>60); Glucose 115 mg/dl (74-100); Potassium 3.1 mmoL/L (3.5-5.1); Sodium 139 mmol/L (136-145)
[2023-02-18 04:00] VITALS: BP 153/76; PULSE 71; PULSE 80; RESP 18; TEMP 36.6; O2SAT 96; BMI 22.7
--- NOTE | 2023-02-18 05:35 | PC.NURSE ---
turned q2h t/o shift. redone dressings to right side flank, coccyx, right shoulder/neck/back, right calf, right hip, and right arm pit at 0500. patient is jaundiced. jarrett in place and secured. patient has rested well t/o the night with no complaints.
[2023-02-18 06:01] LABS: POC Glucose,Bedside 103 (70-110)
[2023-02-18 07:16] LABS: Basophils % 0.1 % (0.1-2.0); Eosinophils % 0.2 % (0.1-12.0); Hematocrit 38.5 % (42.0-52.0); Lymphocytes # 0.8 K/mm3 (0.7-4.5); Lymphocytes % 8.3 % (10-50); Mean Corpuscular HGB Conc 33.7 g/dL (31.8-35.4); Mean Corpuscular Hemoglobin 33.6 pg (27.0-31.2); Mean Corpuscular Volume 99.8 fl (80-94); Mean Platelet Volume 9.1 fl (7.4-10.4); Monocytes # 0.4 K/mm3 (0.1-1.0); Monocytes % 3.9 % (1.7-9.3); Neutrophils # 8.2 K/mm3 (1.8-7.8); Neutrophils % 87.5 % (37.0-80.0); Platelet Count 111 K/mm3 (142-424); Red Blood Count 3.85 M/mm3 (4.60-6.20); White Blood Count 9.4 K/mm3 (4.8-10.8)
[2023-02-18 07:19] LABS: MANUAL DIFFERENTIAL MANUAL DIFFERENTIAL (MANUAL DIFF)
[2023-02-18 07:43] LABS: Chloride 111 mmol/L (98-107); Potassium 3.1 mmoL/L (3.5-5.1); Sodium 140 mmol/L (136-145)
[2023-02-18 07:46] LABS: Anion Gap 4.1 mEq/L (5-15); Blood Urea Nitrogen 15 mg/dl (9-20); Carbon Dioxide 28 mmol/L (22.0-30.0); Creatinine Clearance Estimated 66 mL/min (50-200); Estimated Glomerular Filt Rate 161 ml/min (>60); GFR (African American) 195 ML/MIN (>60); Glucose 114 mg/dl (74-100)
[2023-02-18 08:00] VITALS: BP 184/78; PULSE 78; PULSE 80; RESP 18; TEMP 36.7; O2SAT 96
--- NOTE | 2023-02-18 09:02 | SW/DCPLANNER ---
Addendum entered by Linda Nazario 02/18/23 13:11: Per Evangelina huddleston/ [facility] she can accept this patient once medically stable for discharge. Patient could possibly discharge this afternoon. Original Note: I spoke w/ this patient regarding plans once medically stable for discharge. Patient was able to tell me his name, and year. PT evaluated patient and recommended SNF level of care. Patient is agreeable to [facility] [place] at time of discharge. Patient information has been faxed to Evangelina huddleston/ [facility]. Discharge date is unknown at this time.
[2023-02-18 09:57] LABS: Lymphocytes % 10 % (10-50); Monocytes % 4 % (2-9); Neutrophils % 86 % (42-76); Total Cells Counted 100
[2023-02-18 09:58] LABS: Platelet Estimate Slight Decrease; RBC Morphology Normal
[2023-02-18 11:26] VITALS: BP 168/74; PULSE 70; RESP 17; TEMP 36.8; O2SAT 96
--- NOTE | 2023-02-18 11:57 | EXP.SURG.CON ---
History of Present Illness *Admission Date: 02/15/23 *Reason for visit:: Deep axillary wound *History of present illness: Asked by hospitalist service to see this patient in consultation for deep axillary wound . This is his fourth hospital day for admission. He had presented to the emergency department at this facility on 02/15/2023 after reportedly placed in [facility] had received a call for a wellness check. At the time upon presentation to the emergency department patient was found to be mildly jaundiced. He had multiple wounds from reportedly multiple falls at his residence of unknown age. These were noted on initial evaluation. He has been admitted for inpatient management. Surgical consultation was obtained today for recommendations for axillary wound. Patient has been partaking in a regular diet. He has been seen by physical therapy for wound care today. Patient currently getting ready to leave and be discharged on ambulance to rehab at any moment. [facility] Disclaimer: The information contained in this section may have been updated after the patient was seen, as this information can be updated by other users. Medical History (Updated 02/15/23 @ 19:02 by Rosmery Kent MD) History of left heart catheterization (LHC) Hyperlipidemia Hypertension Family History (Updated 02/15/23 @ 17:39 by Anny Wood RN) No significant family history Social History (Updated 02/15/23 @ 17:41 by Anny Wood, RN) Smoking Status: Never smoker alcohol intake: current current occupational status: unemployed Travel in the last 8 weeks: None Review of Systems Review of Systems Review of systems:: unable to obtain Constitutional Constitutional: Denies headache(s) and Reports weakness (Generalized) ENT Ears, Nose, Mouth, and Throat: Denies dizziness and Denies headache(s) *Musculoskeletal Musculoskeletal: Denies numbness and Denies tingling *Neurologic Neurologic: Denies dizziness, Denies headache(s), Denies numbness, Denies tingling and Reports weakness (Generalized) Meds Home Medications and Allergies Home Medications Medication Instructions Recorded Confirmed Type amlodipine 5 mg tablet 10 mg PO DAILY 30 days #60 tabs 02/18/23 Rx calcium carbonate 200 mg calcium 500 mg PO QIDP PRN Heartburn #0 02/18/23 Rx (500 mg) chewable tablet (Tums) tabs levofloxacin 750 mg tablet 750 mg PO DAILY 3 days #3 tabs 02/18/23 Rx lisinopril 20 mg tablet 40 mg PO DAILY 30 days #60 tabs 02/18/23 Rx sennosides 8.6 mg-docusate sodium 1 tab PO BIDP PRN 30 days #0 tabs 02/18/23 Rx 50 mg tablet (Stool Softener-Stimulant Laxative) New Prescriptions to Start Prescriptions: amlodipine [place] levofloxacin Deshawn,Ha lisinopril [place] Allergies Allergy/AdvReac Type Severity Reaction Status Date / Time No Known Allergies Allergy Verified 02/15/23 17:31 Exam (Inpt) Vital signs and Labs for Last 24 Hours: Temp Pulse Resp BP Pulse Ox O2 Del Method 98.2 F 70 17 168/74 H 96 Room Air 02/18/23 11:26 02/18/23 11:26 02/18/23 11:26 02/18/23 11:26 02/18/23 11:26 02/18/23 11:26 Laboratory Results - last 24 hr 02/17/23 12:31: POC Glucose 103 02/17/23 17:07: POC Glucose 145 H 02/17/23 22:12: POC Glucose 127 H 02/17/23 23:25: Sodium 139, Potassium 3.1 L, Chloride 109 H, Carbon Dioxide 28, Anion Gap 5.1, BUN 18, Creatinine 0.50 L, Estimated Creat Clear 60, Estimated GFR 161, Est GFR ( Amer) 195 D, Glucose 115 H, Calcium 7.7 L 02/18/23 05:10: POC Glucose 103 02/18/23 06:36: WBC 9.4, RBC 3.85 L, Hgb 13.0 L, Hct 38.5 L, MCV 99.8 H, MCH 33.6 H, MCHC 33.7, RDW 13.0, Plt Count 111 L, MPV 9.1, Neut % (Auto) 87.5 H, Lymph % (Auto) 8.3 L, [place] % (Auto) 3.9, Eos % (Auto) 0.2, Baso % (Auto) 0.1, Neut # (Auto) 8.2 H, Lymph # (Auto) 0.8, [place] # (Auto) 0.4, Eos # (Auto) 0.0, Baso # (Auto) 0.0, Total Cou
[2023-02-18 12:46] LABS: Chloride 110 mmol/L (98-107); Potassium 3.1 mmoL/L (3.5-5.1); Sodium 138 mmol/L (136-145)
--- NOTE | 2023-02-18 12:47 | HMH.PTWOUND ---
Rehab Inpt Wound Evaluation Rehab IP Wound Evaluation Start: 02/17/23 11:02 Freq: ONCE Status: Active Protocol: Document 02/18/23 12:18 SNEHA (Rec: 02/18/23 12:46 SNEHA [id number]) Rehab PT Wound Assessment Subjective Subjective Pt is a 77 y/o male who presented to [facility] on 02/16/23 due to generalized weakness and falls. Per history & physical note, Patient was found down in his home, he was also noticed to have large wound on his right shoulder from previous falls. Patient was recommended by home wellness check agency to come to the hospital, patient attributes multiple times. He also has difficulty swallowing, he denied diarrhea constipation dysuria fever chills. Medical History:History of left heart catheterization ( LHC), Hyperlipidemia, Hypertension Multiple wounds observed with largest wound on R shoulder recorded below Wound Right Shoulder Wound Type from fall Is This a Chronic Wound No Wound Staging Unstageable Query Text:Stage I - Unbroken, red skin, no blanching. Stage II - Skin broken, superficial skin loss involving epidermis alone or also dermis. Partial loss of skin layers. Stage III - Pressure area involves epidermis, dermis and subcutaneous tissue, full thickness skin loss. Stage IV - Pressure area involves epidermis, subcutaneous tissue, bone and other supportive tissue. Full thickness skin loss with extensive destruction of underlying tissue and structures. Superficial wound not involving tendon, w/o infection/ischemia capsule or bone Wound Length (cm) 16 Wound Width (cm) 3 Wound Depth (cm) 0.1 Wound Bed Appearance Dusky Red,Yellow,Wheat,Slough, Peeling Skin Percentage Granulated (%) 25 Percentage of Slough (%) 75 Wound Margins Description Well Defined Surrounding Tissue Appearance [place] Edema Degree
[2023-02-18 12:48] LABS: Alanine Aminotransferase 77 U/L (12-78); Aspartate Amino Transferase 112 U/L (17-59); Blood Urea Nitrogen 14 mg/dl (9-20); Creatinine Clearance Estimated 66 mL/min (50-200); Estimated Glomerular Filt Rate 161 ml/min (>60); GFR (African American) 195 ML/MIN (>60)
[2023-02-18 12:49] LABS: Albumin Level 2.8 g/dl (3.5-5.0); Albumin/Globulin Ratio 1.2 (1.1-1.8); Alkaline Phosphatase 61 U/L (38-126); Anion Gap 3.1 mEq/L (5-15); Bilirubin,Total 1.8 mg/dl (0.2-1.3); Calcium 7.8 mg/dl (8.4-10.2); Carbon Dioxide 28 mmol/L (22.0-30.0); Globulin 2.4 g/dL (1.3-3.2); Glucose 113 mg/dl (74-100); Total Protein,Serum 5.2 g/dl (6.3-8.2)
[2023-02-18 13:09] LABS: POC Glucose,Bedside 104 (70-110)
--- NOTE | 2023-02-18 14:00 | EXP.DC.SUM ---
General Admission date:: 02/15/23 Discharge date: 02/18/23 HPI HPI HPI: Patient is a 77-year-old male who presents to the hospital due to generalized weakness, recurrent falls. Patient was found down in his home, he was also noticed to have large wound on his right shoulder from previous falls. Patient was recommended by home wellness check agency to come to the hospital, patient attributes multiple times. He also has difficulty swallowing, he denied diarrhea constipation dysuria fever chills. Hospital Course Hospital Course Hospital Course: Patient is a 77-year-old male who presents to the hospital due to generalized weakness, recurrent falls. Patient was found down in his home, he was also noticed to have large wound on his right shoulder from previous falls. Patient was recommended by home wellness check agency to come to the hospital. On presentation, patient weak and having difficulty with swallowing. Was evaluated by PT and OT, recommend placement. Surgery evaluated his wounds. Continue antibiotics. Found to have rhabdomyolysis. This is improved along with his kidney function. Stable for discharge to long term facility for rehab and further care. Problems addressed as follows: Assessment Recurrent falls Rhabdomyolysis multiple body wounds Leukocytosis Gram-negative erica bacteremia Lactic acidosis Dehydration Multiple body wounds Duodenitis Plan Patient admitted for weakness. Worked up for sepsis. Cultures obtained. Blood culture showed positive for gram-negative rods. Will plan to continue 7 days of antibiotics empirically with transitioning to levofloxacin to complete course. Patient is clinically done well with normalization in his white cell count. Kidney function and electrolytes stable. Tolerating p.o. intake. Evaluated by PT and OT. Graciously excepted by [facility] for further care and rehab. Stable to discharge to next level of care. See med rec for full list of occasions to continue on discharge. Exam Data for Last 24 hours Vital signs and Labs for Last 24 Hours: Temp Pulse Resp BP Pulse Ox O2 Del Method 98.2 F 70 17 168/74 H 96 Room Air 02/18/23 11:26 02/18/23 11:26 02/18/23 11:26 02/18/23 11:26 02/18/23 11:26 02/18/23 11:26 Laboratory Results - last 24 hr 02/17/23 17:07: POC Glucose 145 H 02/17/23 22:12: POC Glucose 127 H 02/17/23 23:25: Sodium 139, Potassium 3.1 L, Chloride 109 H, Carbon Dioxide 28, Anion Gap 5.1, BUN 18, Creatinine 0.50 L, Estimated Creat Clear 60, Estimated GFR 161, Est GFR ( Amer) 195 D, Glucose 115 H, Calcium 7.7 L 02/18/23 05:10: POC Glucose 103 02/18/23 06:36: WBC 9.4, RBC 3.85 L, Hgb 13.0 L, Hct 38.5 L, MCV 99.8 H, MCH 33.6 H, MCHC 33.7, RDW 13.0, Plt Count 111 L, MPV 9.1, Neut % (Auto) 87.5 H, Lymph % (Auto) 8.3 L, [place] % (Auto) 3.9, Eos % (Auto) 0.2, Baso % (Auto) 0.1, Neut # (Auto) 8.2 H, Lymph # (Auto) 0.8, [place] # (Auto) 0.4, Eos # (Auto) 0.0, Baso # (Auto) 0.0, Total Counted 100, Neutrophils % (Manual) 86 H, Lymphocytes % (Manual) 10, Monocytes % (Manual) 4, Platelet Estimate Slight decrease, RBC Morphology Normal, Sodium 140, Potassium 3.1 L, Chloride 111 H, Carbon Dioxide 28, Anion Gap 4.1 L, BUN 15, Creatinine 0.50 L, Estimated Creat Clear 66, Estimated GFR 161, Est GFR ( Amer) 195, Glucose 114 H, Calcium 8.0 L 02/18/23 11:40: POC Glucose 104 02/18/23 12:24: Sodium 138, Potassium 3.1 L, Chloride 110 H, Carbon Dioxide 28, Anion Gap 3.1 L, BUN 14, Creatinine 0.50 L, Estimated Creat Clear 66, Estimated GFR 161, Est GFR ( Amer) 195, Glucose 113 H, Calcium 7.8 L, Total Bilirubin 1.8 H, AST 112 H D, ALT 77 D, Alkaline Phosphatase 61, Total Protein 5.2 L D, Albumin 2.8 L, Globulin 2.4, Albumin/Globulin Ratio 1.2 I & O for Last 24 hours: Intake & Output 02/15/23 02/16/23 02/17/23 02/18/23 23:59 23:59 23:59 23:59 Intake Total 1460 / 1580 1870 / 2700 1070 / 1070 Output Total / 1999 1575 / 1575
[2023-02-18 16:00] VITALS: PULSE 75
[2023-02-20 17:15] LABS: Creatine Kinase,Total,Serum 514
[2023-02-21 15:10] LABS: HBsAg Screen Negative (Negative); HCV Ab Non Reactive (Non Reactive); Hep A Ab, IGM Negative (Negative); Hep B Core Ab, IgM Negative (Negative)
[2023-02-25 09:05] LABS: CK-MM 94; Macro Type 1 6; Macro Type 2 0
[2023-02-25 09:06] LABS: CK-BB 0; CK-MB 0
== END 2023-02-18 17:00 | DRG 565 ==
LOC: ER 16:11 → 2ND 16:20
PROVIDERS: Emergency Medicine; Nurse Practitioner Family; Surgery; Admitting Provider Internal Medicine; Emergency Provider Emergency Medicine; Visit Provider Internal Medicine
DX: T79.6XXA Traumatic ischemia of muscle, initial encounter (principal); E87.20 Acidosis, unspecified; Z91.81 History of falling; E78.5 Hyperlipidemia, unspecified; I10 Essential (primary) hypertension; E86.0 Dehydration; K29.80 Duodenitis without bleeding; W19.XXXA Unspecified fall, initial encounter
CPT/HCPCS: 36415; 51702; 70450; 70491; 71045; 72125; 72170; 73030; 74177; 80048; 80053; 80074; 80202; 81001; 82550; 82552; 82803; 82962; 83605; 83690; 84132; 84484; 85007; 85025; 87040; 93005; 97110; 97161; 97165; 99291; J1956; J2543; J3370; Q9967

== ENCOUNTER 2023-11-28 12:13 | Emergency (ER) | payer MEDICARE, SELFPAY ==
[2023-11-28] VITALS (7 sets, daily range): BP systolic 126–152; BP diastolic 77–95; PULSE 92–99; RESP 17–20; TEMP 36.6; O2SAT 97–99; BMI 24.3; BMI 25.1
--- NOTE | 2023-11-28 12:34 | HMH.EDGENADL ---
Discharge Plan Disposition Patient Disposition: Xfer SNF Condition: Good Prescriptions Prescriptions: No Action lisinopril 20 mg Tablet 40 mg PO DAILY 30 Days Qty: 60 0RF sennosides-docusate sodium [Stool Softener-Stimulant Laxat] 8.6-50 mg Tablet 1 tab PO BIDP PRN30 Days Qty: 0 0RF amlodipine 5 mg Tablet 10 mg PO DAILY 30 Days Qty: 60 0RF calcium carbonate [Tums] 200 mg calcium (500 mg) Tablet,Chewable 500 mg PO QIDP PRN (Reason: Heartburn) Qty: 0 0RF levofloxacin 750 mg tablet 750 mg PO DAILY 3 Days Qty: 3 0RF Rx Instructions: first dose 02/19/23 Activity Restrictions/Add. Instructions Additional Instructions/Restrictions: You were evaluated in the emergency department today. You were found to have urinary retention, so Davis catheter was placed. Urine is not concerning for infection at this time. Please follow-up closely with primary care as well as with urology. Return to the emergency department right away for new or worsening symptoms. Clinical Impressions Clinical Impression: Acute urinary retention, General weakness Instructions Patient Instructions: DI for Urinary Retention in Men Print Language Print Language: Hebrew Discharge ED Provider: Evangelina Hill General Adult HPI General Chief complaint: Urogenital-Male Stated complaint: AMS, possible UTI/stone? Time Seen by Provider: 11/28/23 12:15 History of Present Illness HPI narrative: This patient is a 77-year-old male with history of general debility presenting to the emergency department for evaluation from care home with concern for possible UTI because he has been complaining of back pain and has had no urinary incontinence. They also note that he is generally weaker than previous and seems to be a little bit confused. No fevers or other concerns noted. Patient is alert and oriented to person and place but not time. He states he has had some pain in his belly but no other concerns. Related Data Previous Rx's ?Medication ?Instructions ?Recorded amlodipine 5 mg tablet 10 mg (2 x 5 mg) PO DAILY 30 days 02/18/23 #60 tabs calcium carbonate (Tums) 500 mg (2.5 x 200 mg calcium (500 02/18/23 mg)) PO QIDP PRN Heartburn #0 tabs levofloxacin 750 mg tablet 750 mg PO DAILY 3 days #3 tabs 02/18/23 lisinopril 20 mg tablet 40 mg (2 x 20 mg) PO DAILY 30 days 02/18/23 #60 tabs sennosides 8.6 mg-docusate sodium 1 tab PO BIDP PRN 30 days #0 tabs 02/18/23 50 mg tablet (Stool Softener-Stimulant Laxative) Allergies Allergy/AdvReac Type Severity Reaction Status Date / Time No Known Allergies Allergy Verified 02/15/23 17:31 [facility] Disclaimer: The information contained in this section may have been updated after the patient was seen, as this information can be updated by other users. Medical History History of left heart catheterization (LHC) Hyperlipidemia Hypertension Family History Other No significant family history Social History Smoking Status: Never smoker alcohol intake: current current occupational status: unemployed Travel in the last 8 weeks: None ROS Obtained: Yes All systems reviewed & no additional complaints except as documented Physical Exam General General appearance: alert and in no apparent distress Head Head exam: atraumatic and normocephalic Eye Eye exam: Present normal appearance, PERRL and EOMI ENT ENT exam: Present normal exam, normal oropharynx, mucous membranes moist and normal external ear exam Neck Neck exam: Present normal inspection, full ROM and trachea midline; Absent tenderness Chest Chest inspection: Present normal inspection and symmetric chest wall rise; Absent tenderness Respiratory Respiratory exam: Present normal lung sounds bilaterally; Absent respiratory distress, wheezes, stridor or accessory muscle use Cardiovascular Cardiovascular exam: Present regular rate and normal rhythm Abdominal Exam Abdominal exam: Present soft; Absent distention, tenderness or guarding Extremities Exam Extremities exam: Present normal inspection, full ROM and normal capillary refill; Absent tenderness or edema Back Exam Back exam: Present normal inspection and full ROM; Absent tenderness Neurological Exam Neurological exam: Present alert, CN II-XII intact and other (Generally weak without focal neurologic deficit); Absent oriented X3 Psychiatric Psychiatric exam: Present normal affect and normal mood Skin Skin exam: Present warm and dry Medical Decision Making Medical Records Medical records reviewed: Yes I reviewed the patient's medical records. Valentin Inquiry Pt receiving controlled substance: No Vital Signs: 11/28/23 12:13 11/28/23 12:30 11/28/23 13:00 Temperature 97.9 F Temperature Source Oral Pulse Rate 94 H 96 H Pulse Rate [Right] 92 H Respiratory Rate 18 20 18 Blood Pressure 141/85 H 132/81 Blood Pressure [Right Arm] 152/95 H Blood Pressure Mean Blood Pressure Mean [Right Arm] 114 02 Sat by Pulse Oximetry 97 97 97 Oxygen Delivery Method Room Air Room Air 11/28/23 14:00 11/28/23 14:30 11/28/23 15:00 Temperature Temperature Source Pulse Rate 93 H 96 H 99 H Pulse Rate [Right] Respiratory Rate 18 17 Blood Pressure 141/83 H 149/90 H 126/77 Blood Pressure [Right Arm] Blood Pressure Mean 93 Blood Pressure Mean [Right Arm] 02 Sat by Pulse Oximetry 99 98 97 Oxygen Delivery Method Room Air Room Air 11/28/23 15:50 Temperature 97.9 F Temperature Source Oral Pulse Rate 92 H Pulse Rate [Right] Respiratory Rate 20 Blood Pressure 146/79 H Blood Pressure [Right Arm] Blood Pressure Mean Blood Pressure Mean [Right Arm] 02 Sat by Pulse Oximetry Oxygen Delivery Method Room Air Lab Data Lab results reviewed: Yes I reviewed the patient's lab results. Lab Results 11/28/23 12:20: WBC 7.8, RBC 3.36 L, Hgb 11.1 L, Hct 33.9 L, MCV 100.8 H, MCH 33.1 H, MCHC 32.8, RDW 13.4, Plt Count 264, MPV 9.3, Neut % (Auto) 74.7, Lymph % (Auto) 14.3, [place] % (Auto) 8.4, Eos % (Auto) 1.6, Baso % (Auto) 0.9, Neut # (Auto) 5.8, Lymph # (Auto) 1.1, [place] # (Auto) 0.7, Eos # (Auto) 0.1, Baso # (Auto) 0.1, Sodium 139, Potassium 5.0, Chloride 107, Carbon Dioxide 26, Anion Gap 11.0, BUN 48 H, Creatinine 1.10, Estimated Creat Clear 62, Estimated GFR 65, Est GFR ( Amer) 78, Glucose 101 H, Calcium 9.7, Total Bilirubin 1.2, AST 66 H, ALT 66, Alkaline Phosphatase 80, Total Protein 8.0 D, Albumin 4.3, Globulin 3.7 H, Albumin/Globulin Ratio 1.2, TSH 7.88 H, Thyroxine (T4) 8.6, Urine Color Yellow, Urine Appearance Clear, Urine pH 6.0, Ur Specific [place] 1.010, Urine Protein Negative, Urine Glucose (UA) Negative, Urine Ketones Negative, Urine Blood Negative, Urine Nitrate Negative, Urine Bilirubin Negative, Urine Urobilinogen 1.0, Ur Leukocyte Esterase Negative, Urine RBC Occasional, Urine WBC Occasional, Ur Squamous Epith Cells Occasional, Urine Bacteria Trace 11/28/23 12:55: VBG pH 7.40, VBG pCO2 38.1, VBG pO2 45.7 H, VBG HCO3 23.2, VBG Total CO2 24.4, VBG O2 Saturation 82.2 H, VBG Base Excess -1.5, VBG Lactic Acid 1.1 11/28/23 14:52: Urine Color Yellow, Urine Appearance Clear, Urine pH 6.0, Ur Specific [place] 1.015, Urine Protein Negative, Urine Glucose (UA) Negative, Urine Ketones Negative, Urine Blood Negative, Urine Nitrate Negative, Urine Bilirubin Negative, Urine Urobilinogen 1.0, Ur Leukocyte Esterase Negative, Urine RBC None, Urine WBC None, Ur Squamous Epith Cells Occasional, Urine Bacteria None 11/28/23 12:20 11/28/23 12:20 Orders (Tests/Meds): ED MEDICATIONS Discontinued Medications Generic Name Dose Route Start Last Admin Trade Name Freq PRN Reason Stop Dose Admin Sodium Chloride 10 ml 11/28/23 12:45 Sodium Chloride 0.9% 10ml Flush Syringe IV 12/28/23 12:44 NEEDED PRN Maintain IV Site ORDERS Category Date Time Status CT abdomen pelvis wo con Stat Cat Scan 11/28/23 12:[address] cervical spine wo con Stat Cat Scan 11/28/23 12:[address] head/brain wo con Stat Cat Scan 11/28/23 12:53 Taken CXR --portable [XR chest portable] Stat Exams 11/28/23 12:53 Completed CBC w/Auto Diff [Complete Blood Count Auto Diff] Stat Lab 11/28/23 12:20 Completed CMP [Comprehensive Metabolic Panel] Stat Lab 11/28/23 12:20 Completed T4 (Thyroxine) Stat Lab 11/28/23 12:20 Completed TSH [Thyroid Stimulating Hormone] Stat Lab 11/28/23 12:20 Completed UA [Urinalysis and Microscopic] Stat Lab 11/28/23 12:20 Completed UA [Urinalysis and Microscopic] Stat Lab 11/28/23 14:52 Completed VBG [Venous Blood Gas] Stat RT 11/28/23 12:55 Completed ECG Data Tracing #1: I reviewed this ECG and interpreted as documented below: Normal sinus rhythm with a ventricular rate of [address] changes concerning for ischemia ECG initial impression date: 11/28/23 ECG initial impression time: 13:47 Medical Decision Narrative: In summary, this patient is a 77-year-old male presenting to the Emergency Department for evaluation of urinary symptoms, back pain, altered mental status and general weakness from nursing facility. Differential diagnoses considered include but are not limited to cystitis, pyelonephritis, ureterolithiasis, colitis, bowel obstruction, urinary retention, PRASHANTH, dehydration, spinal cord injury. Ruling out the most morbid conditions drove assessment. It should be noted patient's history includes hyperlipidemia, hypothyroid which may or may not be at goal therapy. This complicates all aspects of care by increasing patient's risk for morbidity. I reviewed patient's past medical records and noted previous admission after being found down at home for an extended period of time for rhabdomyolysis and dehydration. On exam, the patient is alert and oriented x 1 with only complaints of abdominal pain. I called the nursing facility to verify and they states that this is his neurologic baseline and he is generally not alert and oriented x 4. He is generally weak with no focal neurologic deficits. He has intact rectal tone. workup included CBC, CMP, urinalysis, thyroid studies, CT head, CT cervical spine given possible fall at SNF that was reported later, and CT abdomen pelvis with IV contrast. I independently interpreted CT scans prior to the radiologist read and noted bladder distention with hydronephrosis bilaterally. Please see their read for final interpretation. Postvoid residual was obtained and was 600 mL. Labs were obtained that demonstrated no concerns for urinary tract infection, no leukocytosis, and no other acutely concerning abnormalities. He has mildly elevated TSH but otherwise nothing remarkable. Given acute urinary retention, Davis catheter was placed. Patient has no saddle anesthesia. He has good rectal tone with good sensation there. I considered diagnosis of cauda equina syndrome, however I do not feel that this is likely based on the reassuring exam. It could simply be related to BPH and urinary retention could have been causing abdominal and back pain. I do not find any other abnormalities on workup to suggest any other acute pathology at this time. Given reassuring workup and exam, I feel that he is appropriate for discharge back to his nursing facility. Strict return precautions were given as well as instructions for close outpatient follow-up. Patient was discharged with Davis catheter in place. Critical Care Critical Care Time Critical Care Time: No
--- NOTE | 2023-11-28 12:53 | CT_ITS ---
FINAL REPORT CLINICAL HISTORY: abdominal pain, gen weakness, frequent falls FINDINGS: Axial CT images of the abdomen and pelvis were obtained without intravenous contrast. Coronal and sagittal reformatted images were also obtained.This study was performed with techniques to keep radiation doses as low as reasonably achievable (ALARA). Individualized dose reduction techniques using automated exposure control or adjustment of mA and/or kV according to the patient''s size were employed. Abdomen:The lung bases are clear. There is no evidence of renal stone. There is mild bilateral hydronephrosis and hydroureter without evidence of ureteral stone. The gallbladder is unremarkable. The liver, spleen and pancreas have an unremarkable, unenhanced appearance. No mass or adenopathy is seen. There is mild duodenal wall thickening that is favored to be inflammatory. Pelvis: Images of the pelvis reveal no evidence of ureteral dilation or ureteral stone. The bladder is moderately distended. Postoperative changes are seen from left hip arthroplasty. There is irregularity of the mid sacrum at the S3-S4 level, favor sequela of prior injury. No acute fracture is identified. IMPRESSION: No evidence of renal stone. Mild bilateral hydronephrosis and hydroureter without evidence of ureteral stone. This may be due to vesicoureteral reflux. Mild duodenal wall thickening, favor inflammatory. Authenticated and ERN
--- NOTE | 2023-11-28 12:53 | XR_ITS ---
FINAL REPORT CLINICAL HISTORY: abdominal pain, gen weakness, frequent falls COMPARISON: 02/15/2023 FINDINGS: A single portable view of the chest was obtained. The heart size and pulmonary vascularity are within normal limits. The mediastinum is within normal limits. No acute pulmonary abnormality is identified. Multiple chronic left rib fractures are identified. IMPRESSION: No active cardiopulmonary disease. Reviewed, Interpreted and Dictated by Matt Malone III, MD Transcribed by Sangeetha Sheffield Authenticated and [facility]
--- NOTE | 2023-11-28 12:53 | CT_ITS ---
FINAL REPORT CLINICAL HISTORY: abdominal pain, gen weakness, frequent falls FINDINGS: Axial CT images of the cervical spine were obtained without contrast. Sagittal and coronal reformatted images were also obtained. This study was performed with techniques to keep radiation doses as low as reasonably achievable (ALARA). Individualized dose reduction techniques using automated exposure control or adjustment of mA and/or kV according to the patient''s size were employed. Many of the axial images are obliquely oriented secondary to the severe thoracic kyphosis. Diffuse degenerative changes are noted. There is no evidence of fracture or dislocation. There is mild anterolisthesis of C4 on C5 and C5 on C6. Multilevel disc osteophyte complexes are noted. There is no evidence of canal stenosis. No paraspinous soft tissue abnormality is seen. A 20 mm lytic area is seen in the medial left clavicle of uncertain significance. There are multiple chronic left lateral rib fractures. IMPRESSION: Multilevel severe degenerative changes. No fracture or acute bony abnormality. 20 mm lytic area in the medial left clavicle of uncertain etiology but is worrisome for a mass. Authenticated and ERN
--- NOTE | 2023-11-28 12:53 | CT_ITS ---
FINAL REPORT CLINICAL HISTORY: abdominal pain, gen weakness, frequent falls COMPARISON: 02/15/2023 FINDINGS: Axial images of the head were obtained without contrast. Coronal and sagittal reformatted images were also obtained. This study was performed with techniques to keep radiation doses as low as reasonably achievable (ALARA). Individualized dose reduction techniques using automated exposure control or adjustment of mA and/or kV according to the patient''s size were employed. There is generalized age-appropriate atrophy. Periventricular low-attenuation areas are seen consistent with moderate chronic ischemic changes. There is no evidence of intracranial hemorrhage or mass. There is no evidence of acute infarct. There is no evidence of shift of the midline structures. No skull abnormality is seen on the bone window images. Note is made of opacification of right ethmoid air cells and mucosal thickening in the right maxillary sinus. IMPRESSION: Atrophy and moderate periventricular chronic ischemic changes. No acute intracranial abnormality identified. Authenticated and ERN
[2023-11-28 12:59] LABS: Appearance,Urine CLEAR (Clear); Bilirubin,Urine Negative (Negative); Blood, Urine Negative (Negative); Color,Urine YELLOW (Yellow); Glucose,Urine (UA) Negative (Negative); Ketones,Urine Negative (Negative); Leukocyte Esterase,Urine Negative (Negative); Microscopic, Urine URINE MICROSCOPIC (MICROSCOPIC); Nitrate,Urine Negative (Negative); Protein,Urine Negative (Negative)
[2023-11-28 13:00] LABS: Basophils # 0.1 K/mm3 (0-0.2); Basophils % 0.9 % (0.1-2.0); Eosinophils # 0.1 K/mm3 (0.0-0.4); Eosinophils % 1.6 % (0.1-12.0); Hematocrit 33.9 % (42.0-52.0); Hemoglobin 11.1 g/dL (14.1-18.0); Lymphocytes # 1.1 K/mm3 (0.7-4.5); Lymphocytes % 14.3 % (10-50); Mean Corpuscular HGB Conc 32.8 g/dL (31.8-35.4); Mean Corpuscular Hemoglobin 33.1 pg (27.0-31.2); Mean Corpuscular Volume 100.8 fl (80-94); Mean Platelet Volume 9.3 fl (7.4-10.4); Monocytes # 0.7 K/mm3 (0.1-1.0); Monocytes % 8.4 % (1.7-9.3); Neutrophils # 5.8 K/mm3 (1.8-7.8); Neutrophils % 74.7 % (37.0-80.0); Platelet Count 264 K/mm3 (142-424); Red Blood Count 3.36 M/mm3 (4.60-6.20); Red Cell Distribution Width 13.4 % (11.5-17.5); White Blood Count 7.8 K/mm3 (4.8-10.8)
[2023-11-28 13:05] LABS: Alanine Aminotransferase 66 U/L (12-78); Albumin Level 4.3 g/dl (3.5-5.0); Albumin/Globulin Ratio 1.2 (1.1-1.8); Alkaline Phosphatase 80 U/L (38-126); Aspartate Amino Transferase 66 U/L (17-59); Bilirubin,Total 1.2 mg/dl (0.2-1.3); Blood Urea Nitrogen 48 mg/dl (9-20); Calcium 9.7 mg/dl (8.4-10.2); Carbon Dioxide 26 mmol/L (22.0-30.0); Chloride 107 mmol/L (98-107); Creatinine Clearance Estimated 62 mL/min (50-200); Estimated Glomerular Filt Rate 65 ml/min (>60); GFR (African American) 78 ML/MIN (>60); Globulin 3.7 g/dL (1.3-3.2); Glucose 101 mg/dl (74-100); Sodium 139 mmol/L (136-145)
[2023-11-28 13:08] LABS: Lactate Venous 1.1 mmol/L (0.4-2.0); VBG Base Excess -1.5 mmol/L (-2.4-2.3); VBG HCO3 23.2 mmol/L (23-30); VBG Oxygen Saturation 82.2 % (50-70); VBG PCO2 38.1 mmol/L (35-51); VBG PO2 45.7 mmol/L (28-40); VBG Total CO2 24.4 mmol/L (23-27)
[2023-11-28 13:23] LABS: T4 (Thyroxine) 8.6 ug/dl (5.53-11.0)
[2023-11-28 13:26] LABS: Bacteria,Urine Trace /lpf; RBC,Urine Occasional #/hpf (0-3); Squamous Epithelial Cell,Urine Occasional #/hpf (0-5); WBC,Urine Occasional #/hpf (0-3)
[2023-11-28 13:36] LABS: Thyroid Stimulating Hormone 7.88 uIU/mL (0.465-4.68)
--- NOTE | 2023-11-28 13:45 | ECG_ITS ---
APPROVED REPORT Exam: Resting ECG HR:89 bpm ECG Measurements Heart Rate 89 AXES MI 176 P 56 QRSd 89 QRS 63 QT 345 T 45 QTc 392 Conclusion SINUS RHYTHM NORMAL ECG Electronically signed by : ZANA LENO, 11/28/2023 17:02:53
--- NOTE | 2023-11-28 14:50 | PC.NURSE ---
[facility]. staff says he is normally only alert to self but does ambulate with a cane independently
[2023-11-28 15:05] LABS: Microscopic, Urine URINE MICROSCOPIC (MICROSCOPIC)
[2023-11-28 15:09] LABS: Appearance,Urine CLEAR (Clear); Bilirubin,Urine Negative (Negative); Blood, Urine Negative (Negative); Color,Urine YELLOW (Yellow); Glucose,Urine (UA) Negative (Negative); Ketones,Urine Negative (Negative); Leukocyte Esterase,Urine Negative (Negative); Nitrate,Urine Negative (Negative); Protein,Urine Negative (Negative); Specific Gravity, Urine 1.015 (1.005-1.030)
--- NOTE | 2023-11-28 15:20 | PC.NURSE ---
report called to [facility] Anny
[2023-11-28 15:25] LABS: Squamous Epithelial Cell,Urine Occasional #/hpf (0-5)
== END 2023-11-28 16:18 ==
PROVIDERS: Emergency Provider Emergency Medicine
DX: N13.30 Unspecified hydronephrosis (principal); N13.4 Hydroureter; R33.9 Retention of urine, unspecified; R53.1 Weakness
CPT/HCPCS: 51702; 70450; 71045; 72125; 74176; 80053; 81001; 82803; 84436; 84443; 85025; 93005; 99285

== ENCOUNTER 2023-12-09 12:00 | Outpatient (CLI) | payer MEDICARE, SELFPAY ==
[2023-12-09 15:54] LABS: Microscopic, Urine URINE MICROSCOPIC (MICROSCOPIC)
[2023-12-09 16:29] LABS: Appearance,Urine CLEAR (Clear); Bilirubin,Urine Negative (Negative); Blood, Urine 1+ (Negative); Color,Urine YELLOW (Yellow); Glucose,Urine (UA) Negative (Negative); Ketones,Urine Negative (Negative); Leukocyte Esterase,Urine Negative (Negative); Nitrate,Urine Negative (Negative); Protein,Urine Negative (Negative); Urobilinogen,Urine 0.2 EU/dl (0.2)
== END 2023-12-09 23:59 | disposition home or self-care (01) ==
LOC: LAB.DROPOF 12-10 09:09
PROVIDERS: PCP Urology; Visit Provider Urology
DX: R33.8 Other retention of urine (principal)
CPT/HCPCS: 81001; 87086

== ENCOUNTER 2023-12-23 10:17 | Emergency (ER) | payer MEDICARE, SELFPAY ==
[2023-12-23 10:19] VITALS: BP 109/63; PULSE 93; RESP 16; TEMP 36.4; O2SAT 99; BMI 22.4
--- NOTE | 2023-12-23 10:24 | PC.NURSE ---
Dr. Mendez at bedside for pt eval
[2023-12-23 10:30] VITALS: BP 103/60; PULSE 86; O2SAT 99
--- NOTE | 2023-12-23 10:33 | HMH.EDGENADL ---
Discharge Plan Disposition Patient Disposition: Home, Self-Care Prescriptions Prescriptions: No Action nystatin-triamcinolone 100,000-0.1 unit/g-% cream 1 applic topical BID 30 Days Qty: 30 0RF Rx Instructions: Apply BID lightly to glans penis. lisinopril 20 mg Tablet 40 mg PO DAILY 30 Days Qty: 60 0RF sennosides-docusate sodium [Stool Softener-Stimulant Laxat] 8.6-50 mg Tablet 1 tab PO BIDP PRN30 Days Qty: 0 0RF amlodipine 5 mg Tablet 10 mg PO DAILY 30 Days Qty: 60 0RF calcium carbonate [Tums] 200 mg calcium (500 mg) Tablet,Chewable 500 mg PO QIDP PRN (Reason: Heartburn) Qty: 0 0RF Referrals Follow up/Referrals: Provider,Referral, MD [Primary Care Provider] - See instructions Activity Restrictions/Add. Instructions Additional Instructions/Restrictions: Presents to urology clinic today for evaluation with Dr. Garcia Clinical Impressions Clinical Impression: Dislodged Jarrett catheter Qualifiers: Encounter type: initial encounter Qualified Code(s): T83.021A - Displacement of indwelling urethral catheter, initial encounter Laceration of urethra Qualifiers: Encounter type: initial encounter Qualified Code(s): S37.33XA - Laceration of urethra, initial encounter Instructions Patient Instructions: DI for Urinary Tract Infection (UTI), DI for Urinary Tract Infection in Children Print Language Print Language: Citizen Of [place] Discharge ED Provider: Mayco Mendez General Adult HPI General Chief complaint: Urogenital-Male Stated complaint: Urogenital-Male Time Seen by Provider: 12/23/23 10:22 Mode of Arrival: Ambulatory Source of Information: Patient and EMS Limitations: No Limitations Description of Symptoms (Recalled from ER Triage Doc. by RN): pt to the ED from [facility]. Staff reports the patient went to the bathroom and when the tech checked on him it appeared his jarrett cath had dislodged and was bleeding from his penis. Per EMS the patient lost a moderate amount of blood in the bathroom. pt given 500cc bolus and bleeding is controlled on arrvial History of Present Illness HPI narrative: This is a 78-year-old male who presents via EMS from senior living with Jarrett catheter dislodgment. Patient went to the bathroom and the tech checked on him and it appeared that his Jarrett catheter dislodged and he was bleeding from his penis. Patient states that he did not pull it but that it seems like it shot out of his penis like a bullet. Noted a moderate amount of blood loss in the bathroom. Slightly hypotensive and administered 500 cc in route. Jarrett catheter was placed for urinary retention. Related Data Previous Rx's ?Medication ?Instructions ?Recorded amlodipine 5 mg tablet 10 mg (2 x 5 mg) PO DAILY 30 days 02/18/23 #60 tabs calcium carbonate (Tums) 500 mg (2.5 x 200 mg calcium (500 02/18/23 mg)) PO QIDP PRN Heartburn #0 tabs lisinopril 20 mg tablet 40 mg (2 x 20 mg) PO DAILY 30 days 02/18/23 #60 tabs sennosides 8.6 mg-docusate sodium 1 tab PO BIDP PRN 30 days #0 tabs 02/18/23 50 mg tablet (Stool Softener-Stimulant Laxative) nystatin-triamcinolone 100,000 1 applic topical BID 30 days #30 12/16/23 unit/g-0.1 % topical cream grams Allergies Allergy/AdvReac Type Severity Reaction Status Date / Time No Known Allergies Allergy Verified 12/16/23 09:27 [facility] Disclaimer: The information contained in this section may have been updated after the patient was seen, as this information can be updated by other users. Medical History History of left heart catheterization (LHC) Hyperlipidemia Hypertension Family History Other No significant family history Social History Smoking Status: Never smoker alcohol intake: current current occupational status: unemployed Travel in the last 8 weeks: None Other Medical History Have you received the Flu Vaccine for this season: No Have you received the Pneumonia Vaccine: No ROS Obtained: Yes All systems reviewed & no additional complaints except as documented Physical Exam General General appearance: alert and in no apparent distress Eye Eye exam: Present normal appearance, PERRL and EOMI Respiratory Respiratory exam: Present normal lung sounds bilaterally; Absent respiratory distress Cardiovascular Cardiovascular exam: Present regular rate and normal rhythm Abdominal Exam Abdominal exam: Present soft and distention; Absent tenderness, guarding or rebound exam: Present other (Laceration involving the urethral meatus, vertical, hemostatic) Extremities Exam Extremities exam: Present normal inspection Neurological Exam Neurological exam: Present alert and oriented X3 Skin Skin exam: Present warm and dry Medical Decision Making Medical Records Medical records reviewed: Yes I reviewed the patient's medical records. Screening: Per USPSTF and CDC recommendations, given the prevalence of disease in our region, it is our hospital?s policy to screen for HIV and viral Hepatitis for all patients aged 18 and over and those with ongoing risk factors. Valentin Inquiry Pt receiving controlled substance: No Vital Signs: 12/23/23 10:19 12/23/23 10:30 Temperature 97.6 F Temperature Source Oral Pulse Rate 86 Pulse Rate [Left Radial] 93 H Respiratory Rate 16 Blood Pressure 103/60 L Blood Pressure [Right Arm] 109/63 L Blood Pressure Mean [Right Arm] 78 Blood Pressure Source [Right Arm] Automatic Cuff Blood Pressure Position [Right Arm] Sitting 02 Sat by Pulse Oximetry 99 99 Oxygen Delivery Method Room Air Room Air Lab Data Lab Results 12/23/23 10:40: WBC 8.2, RBC 3.15 L, Hgb 10.4 L, Hct 30.0 L, MCV 95.2 H, MCH 33.1 H, MCHC 34.8, RDW 13.5, Plt Count 227, MPV 7.7, Neut % (Auto) 73.5, Lymph % (Auto) 16.0, [place] % (Auto) 7.0, Eos % (Auto) 2.9, Baso % (Auto) 0.7, Neut # (Auto) 6.0, Lymph # (Auto) 1.3, [place] # (Auto) 0.6, Eos # (Auto) 0.2, Baso # (Auto) 0.1, PT 11.0, INR 0.98, Sodium 135 L, Potassium 5.2 H, Chloride 102, Carbon Dioxide 27, Anion Gap 11.2, BUN 30 H, Creatinine 1.00, Estimated Creat Clear 63, Estimated GFR 72, Est GFR ( Amer) 87, Glucose 87, Calcium 9.0, Total Bilirubin 0.7, AST 43, ALT 46, Alkaline Phosphatase 87, Total Protein 7.5, Albumin 4.2, Globulin 3.3 H, Albumin/Globulin Ratio 1.3 12/23/23 10:40 12/23/23 10:40 Orders (Tests/Meds): ORDERS Category Date Time Status CBC w/Auto Diff [Complete Blood Count Auto Diff] Stat Lab 12/23/23 10:40 Completed CMP [Comprehensive Metabolic Panel] Stat Lab 12/23/23 10:40 Completed PT/INR [Prothrombin Time INR] Stat Lab 12/23/23 10:40 Completed Medical Decision Narrative: In summary, this is a 78-year-old male with a past medical history of urinary retention status post Jarrett catheter placement 1 week ago presents to the emergency department today with Jarrett catheter dislodgment and bleeding from the urethral meatus. On initial evaluation patient is hemodynamically stable, afebrile, nontoxic-appearing. Had a laceration of the urethral meatus, hemostatic on arrival. Differential diagnosis includes but is not limited to urethral injury, laceration, prostate injury. Based on these concerns, I ordered CBC, CMP, PT/INR. Labs personally reviewed demonstrate anemia at 10.4, mild hyperkalemia at 5.2, normal creatinine. I had an interactive discussion with urologist at who recommended no acute intervention regarding patient's urethral laceration. Patient was noted to have an appointment today with urologist at [facility]. Discussed this with them as well who recommended sending the patient up on up to clinic from the emergency department to be evaluated today. Patient was discharged to present to urology clinic. Critical Care Critical Care Time Critical Care Time: No
[2023-12-23 10:53] LABS: Albumin Level 4.2 g/dl (3.5-5.0); Chloride 102 mmol/L (98-107)
[2023-12-23 10:54] LABS: Basophils # 0.1 K/mm3 (0-0.2); Basophils % 0.7 % (0.1-2.0); Eosinophils # 0.2 K/mm3 (0.0-0.4); Eosinophils % 2.9 % (0.1-12.0); Hemoglobin 10.4 g/dL (14.1-18.0); Lymphocytes # 1.3 K/mm3 (0.7-4.5); Mean Corpuscular HGB Conc 34.8 g/dL (31.8-35.4); Mean Corpuscular Hemoglobin 33.1 pg (27.0-31.2); Mean Corpuscular Volume 95.2 fl (80-94); Mean Platelet Volume 7.7 fl (7.4-10.4); Monocytes # 0.6 K/mm3 (0.1-1.0); Neutrophils % 73.5 % (37.0-80.0); Platelet Count 227 K/mm3 (142-424); Potassium 5.2 mmoL/L (3.5-5.1); Red Blood Count 3.15 M/mm3 (4.60-6.20); Red Cell Distribution Width 13.5 % (11.5-17.5); Sodium 135 mmol/L (136-145); White Blood Count 8.2 K/mm3 (4.8-10.8)
[2023-12-23 10:56] LABS: Alanine Aminotransferase 46 U/L (12-78); Anion Gap 11.2 mEq/L (5-15); Aspartate Amino Transferase 43 U/L (17-59); Blood Urea Nitrogen 30 mg/dl (9-20); Carbon Dioxide 27 mmol/L (22.0-30.0); Creatinine Clearance Estimated 63 mL/min (50-200); Estimated Glomerular Filt Rate 72 ml/min (>60); GFR (African American) 87 ML/MIN (>60)
[2023-12-23 10:57] LABS: Albumin/Globulin Ratio 1.3 (1.1-1.8); Alkaline Phosphatase 87 U/L (38-126); Bilirubin,Total 0.7 mg/dl (0.2-1.3); Globulin 3.3 g/dL (1.3-3.2); Glucose 87 mg/dl (74-100); Total Protein,Serum 7.5 g/dl (6.3-8.2)
[2023-12-23 10:59] LABS: INR 0.98 (0.9-1.1)
--- NOTE | 2023-12-23 11:18 | PC.NURSE ---
Dr. Mendez on phone with urology for possible tx
--- NOTE | 2023-12-23 11:26 | PC.NURSE ---
Called Dr Garcia per Dr Mendez to speak with him about this pt
--- NOTE | 2023-12-23 11:50 | PC.NURSE ---
Dr. Mendez at [facility] to update pt/brother on current POC
[2023-12-23 12:20] VITALS: BP 99/54; PULSE 89; RESP 18; TEMP 36.4; O2SAT 96
== END 2023-12-23 12:10 | disposition home or self-care (01) ==
PROVIDERS: Emergency Provider Student in an Organized Health Care Education/Training Program
DX: S37.33XA Laceration of urethra, initial encounter (principal); T83.021A Displacement of indwelling urethral catheter, initial encounter
CPT/HCPCS: 80053; 85025; 85610; 99282

== ENCOUNTER 2024-03-14 00:44 | Emergency (ER) | payer MEDICARE, SELFPAY ==
[2024-03-14] VITALS (30 sets, daily range): BP systolic 82–122; BP diastolic 44–73; PULSE 89–113; RESP 15–25; TEMP 37–37.7; O2SAT 89–99; BMI 11.3; BMI 25.0
[2024-03-14] MEDS: LACTATED RINGERS 1000ML 2,000 ML 999 ML IV (00:45)
--- NOTE | 2024-03-14 00:51 | CT_ITS ---
PROCEDURE INFORMATION: Exam: CT Head Without Contrast Exam date and time: 03/14/2024 1:33 AM Age: 78 years old Clinical indication: Abnormal findings; Abnormal lab test; Sepsis; Additional info: Sepsis, baseline nonverbal TECHNIQUE: Imaging protocol: Computed tomography of the head without contrast. Radiation optimization: All CT scans at this facility use at least one of these dose optimization techniques: automated exposure control; mA and/or kV adjustment per patient size (includes targeted exams where dose is matched to clinical indication); or iterative reconstruction. COMPARISON: CT HEAD/BRAIN WO CON 11/28/2023 1:25 PM FINDINGS: Brain: Moderate atrophy. No intracranial hemorrhage. No mass. Multiple scattered foci of decreased attenuation within periventricular/subcortical white matter. No definite edema. Cerebral ventricles: No hydrocephalus. Paranasal sinuses: Near complete opacification/fluid of RIGHT maxillary sinus. Scattered mild mucosal thickening of remaining sinuses. Small air-fluid level within LEFT maxillary sinus. Mastoid air cells: No significant effusion. Orbital cavities: Unremarkable as visualized. Bones: No acute fracture. Soft tissues: Unremarkable. Vasculature: Few foci of air about cavernous sinus, nonspecific but possibly iatrogenic. IMPRESSION: 1. Probable chronic microvascular ischemic changes. If symptoms persist, consider MRI. 2. Sinus disease.
--- NOTE | 2024-03-14 00:58 | ECG_ITS ---
APPROVED REPORT Exam: Resting ECG HR:110 bpm ECG Measurements Heart Rate 110 AXES VT 170 P 43 QRSd 85 QRS 61 QT 299 T 56 QTc 364 Conclusion SINUS TACHYCARDIA ABNORMAL RHYTHM ECG No STEMI Electronically signed by : ESSIE BAH, 03/14/2024 07:15:57
[2024-03-14 01:07] LABS: Basophils % 0.2 % (0.1-2.0); Eosinophils % 0.1 % (0.1-12.0); Hematocrit 33.6 % (42.0-52.0); Hemoglobin 10.9 g/dL (14.1-18.0); Lymphocytes # 0.9 K/mm3 (0.7-4.5); Mean Corpuscular HGB Conc 32.4 g/dL (31.8-35.4); Mean Corpuscular Hemoglobin 31.1 pg (27.0-31.2); Mean Corpuscular Volume 95.7 fl (80-94); Monocytes # 1.3 K/mm3 (0.1-1.0); Monocytes % 7.5 % (1.7-9.3); Neutrophils # 15.2 K/mm3 (1.8-7.8); Neutrophils % 86.7 % (37.0-80.0); Platelet Count 246 K/mm3 (142-424); Red Blood Count 3.51 M/mm3 (4.60-6.20); Red Cell Distribution Width 13.7 % (11.5-17.5); White Blood Count 17.6 K/mm3 (4.8-10.8)
[2024-03-14 01:09] LABS: MANUAL DIFFERENTIAL MANUAL DIFFERENTIAL (MANUAL DIFF)
[2024-03-14 01:13] LABS: Lipase 51 U/L (23-300)
[2024-03-14 01:14] LABS: Alanine Aminotransferase 43 U/L (12-78); Albumin Level 4.2 g/dl (3.5-5.0); Albumin/Globulin Ratio 1.2 (1.1-1.8); Alkaline Phosphatase 92 U/L (38-126); Anion Gap 21.6 mEq/L (5-15); Aspartate Amino Transferase 58 U/L (17-59); Bilirubin,Total 1.3 mg/dl (0.2-1.3); Blood Urea Nitrogen 65 mg/dl (9-20); Calcium 9.2 mg/dl (8.4-10.2); Carbon Dioxide 17 mmol/L (22.0-30.0); Chloride 101 mmol/L (98-107); Creatinine Clearance Estimated 7 mL/min (50-200); Estimated Glomerular Filt Rate 13 ml/min (>60); GFR (African American) 16 ML/MIN (>60); Globulin 3.6 g/dL (1.3-3.2); Glucose 142 mg/dl (74-100); INR 1.05 (0.9-1.1); Lactic Acid 2.2 mmol/L (0.7-2.1); Potassium 5.6 mmoL/L (3.5-5.1); Prothrombin Time 11.7 seconds (10.1-12.5); Sodium 134 mmol/L (136-145); Total Protein,Serum 7.8 g/dl (6.3-8.2)
[2024-03-14 01:15] LABS: Microscopic, Urine URINE MICROSCOPIC (MICROSCOPIC)
--- NOTE | 2024-03-14 01:21 | PC.NURSE ---
Obtained a second set of blood cultures and sent to lab on this patient
--- NOTE | 2024-03-14 01:25 | CT_ITS ---
PROCEDURE INFORMATION: Exam: CT Abdomen And Pelvis Without Contrast Exam date and time: 03/14/2024 1:47 AM Age: 78 years old Clinical indication: Abnormal findings; Abnormal lab test; Other: Sepsis; Additional info: Sepsis nonverbal, abd ttp TECHNIQUE: Imaging protocol: Computed tomography of the abdomen and pelvis without contrast. Radiation optimization: All CT scans at this facility use at least one of these dose optimization techniques: automated exposure control; mA and/or kV adjustment per patient size (includes targeted exams where dose is matched to clinical indication); or iterative reconstruction. COMPARISON: CT ABDOMEN PELVIS WO CON 11/28/2023 1:32 PM FINDINGS: Liver: See Spleen finding. Gallbladder and biliary ducts: Normal. No calcified stones. No ductal dilation. Pancreas: Normal. No ductal dilation. Spleen: Granulomas are present in the spleen and in the liver. Adrenal glands: Normal. No mass. Kidneys and ureters: Moderate right, small left hydronephrosis. Davis catheter is in place with decompression of the urinary Stomach and bowel: Constipation at the level of the rectum with rectal dilation up to 9 cm. Appendix: Normal appendix Intraperitoneal space: No free fluid. No free gas Vasculature: Unremarkable. No abdominal aortic aneurysm. Lymph nodes: Unremarkable. No enlarged lymph nodes. Urinary bladder: Unremarkable as visualized. Reproductive: Unremarkable as visualized. Bones/joints: Prior left hip arthroplasty. Compression fracture of the L4 vertebral body is new compared to the November exam. Facet hypertrophy of the lower lumbar Soft tissues: Unremarkable. IMPRESSION: 1. Constipation in the rectum 2. Moderate left and mild right hydronephrosis despite presence of Davis catheter. 3. Other incidental findings above.
--- NOTE | 2024-03-14 01:25 | CT_ITS ---
PROCEDURE INFORMATION: Exam: CT Chest Without Contrast; Diagnostic Exam date and time: 03/14/2024 1:43 AM Age: 78 years old Clinical indication: Abnormal findings; Abnormal diagnostic tests; Other: Sepsis; Additional info: Sepsis nonverbal TECHNIQUE: Imaging protocol: Diagnostic computed tomography of the chest without contrast. Radiation optimization: All CT scans at this facility use at least one of these dose optimization techniques: automated exposure control; mA and/or kV adjustment per patient size (includes targeted exams where dose is matched to clinical indication); or iterative reconstruction. COMPARISON: CR XR CHEST PORTABLE 11/28/2023 1:27 PM FINDINGS: Lungs: No acute airspace infiltrates or effusions. Pleural spaces: Unremarkable. No pneumothorax. No pleural effusion. Heart: Unremarkable. No cardiomegaly. No pericardial effusion. Coronary arteries: Calcified coronary arteries Lymph nodes: Kyphotic thorax calcified lymph nodes are present in the right hilum Vasculature: Unremarkable. No aortic aneurysm. Bones/joints: See Lymph nodes finding. Soft tissues: Unremarkable. Other findings: Ascending thoracic ectasia up to 4.1 cm IMPRESSION: 1. Ascending thoracic ectasia up to 4.1 cm 2. No definite acute intrathoracic abnormality 3. Incidental findings above.
[2024-03-14 01:29] LABS: Bilirubin,Urine Negative (Negative); Blood, Urine 3+ (Negative); Color,Urine YELLOW (Yellow); Glucose,Urine (UA) Negative (Negative); Ketones,Urine Negative (Negative); Leukocyte Esterase,Urine 3+ (Negative); Nitrate,Urine POSITIVE (Negative); Protein,Urine 2+ (Negative); Urobilinogen,Urine 0.2 EU/dl (0.2)
[2024-03-14 01:30] LABS: Appearance,Urine Cloudy (Clear)
[2024-03-14] MEDS: PIPERACILLIN/TAZO 4.5 GM in 0.9 % SODIUM CHLORIDE 100 ML IV (01:30)
[2024-03-14 01:42] LABS: Bacteria,Urine 2+ /lpf; WBC,Urine TNTC #/hpf (0-3)
[2024-03-14] MEDS: VANCOMYCIN CONSULT REQUEST 1 EACH NOTAPPLIC (01:43)
--- NOTE | 2024-03-14 01:43 | PC.NURSE ---
Pt in CT scan via stretcher
[2024-03-14] MEDS: VANCOMYCIN HCL 2,000 MG in 0.9 % SODIUM CHLORIDE 250 ML 125 MG IV (02:00)
--- NOTE | 2024-03-14 02:17 | HMH.EDGENADL ---
Discharge Plan Disposition Patient Disposition: Xfer Short-Term Hosp Condition: Serious Prescriptions Prescriptions: No Action nystatin-triamcinolone 100,000-0.1 unit/g-% cream 1 applic topical BID 30 Days Qty: 30 0RF Rx Instructions: Apply BID lightly to glans penis. lisinopril 20 mg Tablet 40 mg PO DAILY 30 Days Qty: 60 0RF sennosides-docusate sodium [Stool Softener-Stimulant Laxat] 8.6-50 mg Tablet 1 tab PO BIDP PRN30 Days Qty: 0 0RF amlodipine 5 mg Tablet 10 mg PO DAILY 30 Days Qty: 60 0RF calcium carbonate [Tums] 200 mg calcium (500 mg) Tablet,Chewable 500 mg PO QIDP PRN (Reason: Heartburn) Qty: 0 0RF Referrals Follow up/Referrals: Provider,Referral, MD [Primary Care Provider] - See instructions Clinical Impressions Clinical Impression: PRASHANTH (acute kidney injury), Urinary tract infection Sepsis Qualifiers: Sepsis type: sepsis due to unspecified organism Sepsis acute organ dysfunction status: with acute organ dysfunction Severe sepsis acute organ dysfunction type: acute renal failure Acute renal failure type: unspecified Severe sepsis shock status: without septic shock Qualified Code(s): A41.9 - Sepsis, unspecified organism Stand Alone Forms Stand Alone Forms: Transfer Record - ED Print Language Print Language: Faroese Discharge ED Provider: Amada Girard Adult HPI General Chief complaint: Fever Stated complaint: hypotension Time Seen by Provider: 03/14/24 00:50 Mode of Arrival: EMS Source of Information: EMS and Medical Record Limitations: No Limitations Description of Symptoms (Recalled from ER Triage Doc. by RN): Patient to ED via [facility] from [facility] with complaints of increased lethargy, hypotension, feverm and tachycardia. IA states that patient did not eat dinner this evening and looked generally unwell to which vitals were taken with BP approx 66/40, and tachy in the 140s. Patient also with minimal urine output today from chronic jarrett cath aprpox 25ml. Patient is nonverbal at baseline so all information provided came from IA and EMS crew.. History of Present Illness HPI narrative: 78-year-old male presents from [facility] with concerns of lethargy, low blood pressure, high heart rate, fever. shelter reported to EMS that the patient did not eat dinner and looked generally unwell this evening. They reported a blood pressure of 66/40 to EMS and tachycardia in the 140s. They noticed this around shift change at 7 PM and called EMS at midnight. They also reported that patient despite having Jarrett catheter head minimal urine output despite typically having 1 to 2 L of normal urine output. Patient is nonverbal at baseline so EMS provided all information. EMS reports patient received 300 mL of IV fluids during transport which did improve his heart rate and blood pressure. They reported that on scene he was blood pressures in the 80s. Patient will follow commands and watch you around the room but does not otherwise answer questions or interact with you. Related Data Previous Rx's ?Medication ?Instructions ?Recorded amlodipine 5 mg tablet 10 mg (2 x 5 mg) PO DAILY 30 days 02/18/23 #60 tabs calcium carbonate (Tums) 500 mg (2.5 x 200 mg calcium (500 02/18/23 mg)) PO QIDP PRN Heartburn #0 tabs lisinopril 20 mg tablet 40 mg (2 x 20 mg) PO DAILY 30 days 02/18/23 #60 tabs sennosides 8.6 mg-docusate sodium 1 tab PO BIDP PRN 30 days #0 tabs 02/18/23 50 mg tablet (Stool Softener-Stimulant Laxative) nystatin-triamcinolone 100,000 1 applic topical BID 30 days #30 12/23/23 unit/g-0.1 % topical cream grams Allergies Allergy/AdvReac Type Severity Reaction Status Date / Time No Known Allergies Allergy Verified 12/23/23 13:11 [facility] Disclaimer: The information contained in this section may have been updated after the patient was seen, as this information can be updated by other users. Medical History History of left heart catheterization (LHC) Hyperlipidemia Hypertension Family History Other No significant family history Social History Smoking Status: Never smoker alcohol intake: current current occupational status: unemployed Travel in the last 8 weeks: None Other Medical History Have you received the Flu Vaccine for this season: No Have you received the Pneumonia Vaccine: No ROS Obtained: Yes unobtainable due to mental status Physical Exam General General appearance: alert Comment: Ill-appearing, diaphoretic Head Head exam: atraumatic and normocephalic Eye Eye exam: Present PERRL and EOMI (Eyes will track you around the room) ENT ENT exam: Present mucous membranes moist Neck Neck exam: Present normal inspection and full ROM; Absent lymphadenopathy Chest Chest inspection: Present symmetric chest wall rise Respiratory Respiratory exam: Present normal lung sounds bilaterally; Absent respiratory distress, wheezes or stridor Cardiovascular Cardiovascular exam: Present normal rhythm and tachycardia Abdominal Exam Abdominal exam: Present soft, tenderness (Diffuse but significantly worse in the lower abdomen) and guarding (Voluntary especially with lower abdominal palpation); Absent distention, rebound or rigidity Comment: Palpable midline abdominal diastases exam: Present other (Jarrett catheter in place with scant dark urine in the bag) Extremities Exam Extremities exam: Absent tenderness (No traumatic findings) or edema Neurological Exam Neurological exam: Present alert and other (Nonverbal, does not answer questions, responds equally to stimuli in all extremities, does follow commands); Absent motor sensory deficit Expanded Neurological Exam Coma scale eye opening: Spontaneous Coma scale motor response: Obeys commands Coma scale verbal response: None Coma scale total: 11 Psychiatric Psychiatric exam: Present normal affect and normal mood Skin Skin exam: Present warm and diaphoresis Medical Decision Making Medical Records Medical records reviewed: Yes I reviewed the patient's medical records. Screening: Per USPSTF and CDC recommendations, given the prevalence of disease in our region, it is our hospital?s policy to screen for HIV and viral Hepatitis for all patients aged 18 and over and those with ongoing risk factors. MR Comment: Patient was evaluated in our ER in December for a dislodged Jarrett catheter, however his last admission to our hospital was February 2023. Review of discharge summary from Dr. Hess from that visit demonstrates patient presented due to recurrent falls and weakness, found down at home. He was evaluated for sepsis blood culture was positive for gram-negative rods at that time. He was on antibiotics and transitioned to levofloxacin. He was tolerating oral intake and discharged to [facility] for further care and rehab. Valentin Inquiry Pt receiving controlled substance: No Vital Signs: 03/14/24 00:44 Temperature 99.8 F H Temperature Source Oral Pulse Rate [Left] 105 H Respiratory Rate 22 Blood Pressure [Right Arm] 82/51 L Blood Pressure Mean [Right Arm] 61 Blood Pressure Position [Right Arm] Supine 02 Sat by Pulse Oximetry 97 Oxygen Delivery Method Room Air Lab Data Lab Results 03/14/24 00:50: WBC 17.6 H, RBC 3.51 L, Hgb 10.9 L, Hct 33.6 L, MCV 95.7 H, MCH 31.1, MCHC 32.4, RDW 13.7, Plt Count 246, MPV 10.0, Neut % (Auto) 86.7 H, Lymph % (Auto) 5.0 L, [place] % (Auto) 7.5, Eos % (Auto) 0.1, Baso % (Auto) 0.2, Neut # (Auto) 15.2 H, Lymph # (Auto) 0.9, Vil[place] # (Auto) 1.3 H, Eos # (Auto) 0.0, Baso # (Auto) 0.0, Total Counted 100, Neutrophils % (Manual) 87 H, Lymphocytes % (Manual) 8 L, Monocytes % (Manual) 5, Platelet Estimate Normal, RBC Morphology Not Reportable, Hypochromasia 1+, PT 11.7, INR 1.05, Sodium 134 L, Potassium 5.6 H, Chloride 101, Carbon Dioxide 17 L, Anion Gap 21.6 H, BUN 65 H, Creatinine 4.40 H, Estimated Creat Clear 7, Estimated GFR 13 L*, Est GFR ( Amer) 16 L*, Glucose 142 H, Lactate 2.2 H, Calcium 9.2, Total Bilirubin 1.3, AST 58, ALT 43, Alkaline Phosphatase 92, Troponin I < 0.01, Total Protein 7.8, Albumin 4.2, Globulin 3.6 H, Albumin/Globulin Ratio 1.2, Lipase 51 03/14/24 01:03: Urine Color Yellow, Urine Appearance Cloudy, Urine pH 6.0, Ur Specific [place] 1.020, Urine Protein 2+ A, Urine Glucose (UA) Negative, Urine Ketones Negative, Urine Blood 3+ A, Urine Nitrate Positive A, Urine Bilirubin Negative, Urine Urobilinogen 0.2, Ur Leukocyte Esterase 3+ A, Urine RBC 10-20, Urine WBC Tntc, Ur Squamous Epith Cells None, Urine Bacteria 2+ 03/14/24 05:10: Lactate 1.4 03/14/24 00:50 03/14/24 00:50 Orders (Tests/Meds): ED MEDICATIONS Generic Name Dose Route Start Last Admin Trade Name Freq PRN Reason Stop Dose Admin Norepinephrine/Dextrose 8 mg in 250 mls @ 15 mls/hr 03/14/24 03:22 03/14/24 03:24 Levophed 8mg/250ml-D5w Premix IV 04/13/24 03:21 8 mcg/min .[id number] JOSE EDUARDO 15 mls/hr Administration Protocol 8 MCG/MIN Lactated Ringer's 1,000 mls @ 200 mls/hr 03/14/24 07:00 03/14/24 06:54 Lactated Ringer's 1000 Ml Bag IV 04/13/24 06:59 200 mls/hr .Q5H JOSE EDUARDO Administration Miscellaneous 1 each 03/14/24 01:00 03/14/24 01:43 Vancomycin Consult Request NOTAPPLIC 04/13/24 00:59 1 each CONSULT PHARMACY JOSE EDUARDO Administration Discontinued Medications Generic Name Dose Route Start Last Admin Trade Name Freq PRN Reason Stop Dose Admin Piperacillin Sod/Tazobactam 100 mls @ 200 mls/hr 03/14/24 01:00 03/14/24 01:30 Sod 4.5 gm/ Sodium Chloride IV 03/24/24 00:59 200 mls/hr Q8H JOSE EDUARDO Administration Lactated Ringer's 2,000 mls @ 999 mls/hr 03/14/24 00:57 03/14/24 00:45 Lactated Ringer's 1000 Ml Bag IV 03/14/24 02:57 999 mls/hr .Q2H1M ONE Administration Vancomycin HCl 1,000 mg/ 250 mls @ 125 mls/hr 03/14/24 01:30 03/14/24 01:54 Sodium Chloride IV 03/14/24 03:29 Not Given ONCE ONE Vancomycin HCl 2,000 mg/ 250 mls @ 125 mls/hr 03/14/24 01:45 03/14/24 02:00 Sodium Chloride IV 03/14/24 03:44 125 mls/hr ONCE ONE Administration Sodium Phosphate 133 ml 03/14/24 02:15 03/14/24 02:45 Sodium Phos/Biphosphate Fleet 133ml Enema RC 03/14/24 02:16 133 ml ONCE ONE Administration ORDERS Category Date Time Status CT abdomen pelvis wo con Stat Cat Scan 03/14/24 01:[address] chest wo con Stat Cat Scan 03/14/24 01:[address] head/brain wo con Stat Cat Scan 03/14/24 00:51 Completed Complete Blood Count Auto Diff Stat Lab 03/14/24 00:50 Completed Comprehensive Metabolic Panel Stat Lab 03/14/24 00:50 Completed HIV Combo Stat Lab 03/14/24 00:50 Received Hep C Ab with Reflex to RNA Stat Lab 03/14/24 00:50 Received Lactic Acid Follow Up (RFLX 1) Stat Lab 03/14/24 05:10 Completed Lactic Acid Stat Lab 03/14/24 00:50 Completed Lipase Stat Lab 03/14/24 00:50 Completed Prothrombin Time INR Stat Lab 03/14/24 00:50 Completed Trop I [Troponin I] Stat Lab 03/14/24 00:50 Completed Troponin I Q3H Lab 03/14/24 07:00 Ordered Troponin I Q3H Lab 03/14/24 10:00 Ordered Urinalysis and Microscopic Stat Lab 03/14/24 01:03 Completed Urine Culture Stat Micro 03/14/24 01:03 Received Tissue Perfus/Sepsis Re-Eval Sepsis Re-Evaluation Performed: Yes Date Performed: 03/14/24 Time Performed: 05:40 Medical Decision Narrative: In summary, this 78-year-old male who is reportedly nonverbal and lives at [facility] presents to the emergency department today with concerns of lethargy, fever, diaphoresis, tachycardia, hypotension, poor oral intake. On initial evaluation patient is tachycardic, hypotensive, unstable and toxic appearing with diaphoresis. Exam is notable for a GCS of 11 due to him being nonverbal but this is apparently his baseline according to the facility report that was provided to EMS. Patient responds equally in all extremities and has no localizing neurologic deficits. Though I considered stroke I do not have evidence of this on exam. His abdomen is tender especially in the lower quadrants with voluntary guarding. Lungs are clear on exam however I cannot rule out pneumonia. Patient is septic and differential includes UTI, pneumonia, other intra-abdominal or intrathoracic infection, I considered the possibility of acute intracranial abnormality since patient is nonverbal at baseline it is difficult to assess his neurostatus, however I have lower suspicion for this. I am concerned patient may have severe dehydration, kidney dysfunction, electrolyte abnormalities, possible ACS, among others. When he presented to the ER hypotensive and tachycardic, he had already received 300 mL of IV fluids from EMS. Based on his body weight, he received an additional 2 L of IV fluids for a full 30 mL/kg bolus for treatment of sepsis. He is also empirically receiving vancomycin and Zosyn. I have highest suspicion for urosepsis given the presence of indwelling Jarrett. ECG personally turbid demonstrates sinus tachycardia, rate 110, normal axis, normal NE and QTc, no STEMI. Notably, no hyperacute T wave changes. Patient is being worked up with serum labs, cardiac workup, CT imaging. Labs reviewed and are notable for stable anemia but significant leukocytosis WBC 17.6, platelets normal, patient has neutrophilia with left shift increasing my concern for bacterial infection, PT/INR normal, CMP with hyperkalemia potassium 5.6 however ECG does not demonstrate hyperacute changes. Patient has severe new kidney dysfunction, BUN 65 up from 30 in December, he now has a creatinine of 4.4 up from a baseline of 1.0. His GFR is only 13. I had originally ordered contrasted scans however with the severe kidney dysfunction, he is now only going to receive noncontrasted scans. Initial lactic 2.2. He did have mildly delayed capillary refill initially but this is improving with the administration of fluids. UA significantly positive for infection. When his Jrarett catheter was replaced, the urine that drained from his bladder was obviously purulent, thick, milky colored. I personally interpreted abdominal CT and appreciate severe stool burden with rectal impaction. This is likely contributing to the patient having low urine output potentially due to compression of the urethra, also could contribute to his urinary tract infection. CT head without acute intracranial abnormality. See radiology reads for full interpretations. CT chest does not demonstrate obvious pneumonia or pleural effusion. See radiology read for final interpretation. After receiving CT scans, patient became hypotensive again despite having received more than 2 L total fluid resuscitation. His tachycardia has improved, however there is important to maintain good perfusion for this patient especially with his severe kidney dysfunction, so he was started on norepinephrine drip. Radiology reads resulted and agree with my interpretations. Patient requires transfer to higher level of care for closed ICU in the setting of urosepsis with severe kidney dysfunction potentially needing nephrology intervention and possibly dialysis. [facility] was contacted and I spoke with Dr. Dumont with the hospitalist team. After reviewing patient's course of illness, labs, imaging findings, and specifically discussing his severe kidney dysfunction in the setting of purulent urine, she graciously accepted the patient for direct admission to an ICU bed. Awaiting bed assignment. Patient will go via ALS transfer. At this time, he continues to be improving when hemodynamically stable, blood pressure is now 109/78, MAP 77, tachycardia has improved with heart rate 109. He continues to saturate well on room air and is at his baseline mental status. Patient feels warm to the touch and is receiving IV Devers of for axillary temperature 99.9. He is more stable on the Levophed drip, IV maintenance fluids are running at 200 mL/h. Bed assignment has been provided, final cleaning on his room is pending at this time. Nursing staff not able to call report until after shift change. Patient transferred in serious but improved condition via ALS ambulance. Critical Care Critical Care Time Critical Care Time: Yes Attestation: On 03/14/24, the high probability of a clinically significant, sudden or life threatening deterioration of the following system(s) (hemodynamic) required my full and direct attention, intervention and personal management. The time I documented below is in addition to time spent performing reported procedures but includes the following listed in this critical care notation. Total Time Total Critical Care Time: 65
[2024-03-14] MEDS: SODIUM PHOS/BIPHOSPHATE FLEET 133ML ENEMA 133 ML RC (02:45)
[2024-03-14 02:57] LABS: Lymphocytes % 8 % (10-50); Monocytes % 5 % (2-9); Neutrophils % 87 % (42-76); Total Cells Counted 100
[2024-03-14 02:59] LABS: Hypochromasia 1+; Platelet Estimate Normal
[2024-03-14] MEDS: NOREPINEPHRINE BITARTRATE/D5W 8 MG/250 ML PLAST..BAG 15 MG IV (03:24)
[2024-03-14 04:11] LABS: Troponin I < 0.01 ng/ml (0.00-0.034)
[2024-03-14 05:00] LABS: Reflex Lactic Add Lactic Reflex
--- NOTE | 2024-03-14 05:15 | PC.NURSE ---
Jaden Wilkinson contacted [facility] in regards to transferring this patient to [place] for nephrology services. They will be giving us a call back.
[2024-03-14 05:24] LABS: Lactic Acid Follow Up (RFLX 1) 1.4 mmol/L (0.7-2.1)
[2024-03-14] MEDS: LACTATED RINGERS 1000ML 1,000 ML 200 ML IV (06:54)
--- NOTE | 2024-03-14 07:00 | PC.NURSE ---
Attempted to call [facility] to give report and update on patient plan of care, and transfer of patient to [facility] for Urosepsis along with PRASHANTH. Only was able to get [employer] voice mailbox and unable to connect with patient nurse. Information passed on to dayshift for update if facility calls wanting update
[2024-03-14] MEDS: ACETAMINOPHEN 1,000MG/100ML VIAL 1000 MG IV (07:12)
[2024-03-14 07:38] LABS: HIV Combo NEGATIVE (Negative)
--- NOTE | 2024-03-14 07:45 | PC.NURSE ---
Report called to Rut THOMAS at [facility] ICU
--- NOTE | 2024-03-14 07:57 | PC.NURSE ---
Called EMS for transport
--- NOTE | 2024-03-15 08:28 | PC.WOUNDNOTE ---
URINE CULTURE FAXED TO [facility] ICU [phone]
[2024-03-15 09:08] LABS: HCV Ab Non Reactive (Non Reactive)
== END 2024-03-14 09:29 | disposition short-term general hospital (02) ==
PROVIDERS: Emergency Provider Emergency Medicine
DX: A41.9 Sepsis, unspecified organism (principal); N39.0 Urinary tract infection, site not specified; N17.9 Acute kidney failure, unspecified; R53.83 Other fatigue; I95.9 Hypotension, unspecified; R50.9 Fever, unspecified; R00.0 Tachycardia, unspecified; R61 Generalized hyperhidrosis; R63.8 Other symptoms and signs concerning food and fluid intake
CPT/HCPCS: 70450; 71250; 74176; 80053; 81001; 83605; 83690; 84484; 85007; 85025; 85027; 85610; 86803; 87086; 87088; 87186; 87389; 93005; 96361; 96365; 96366; 96374; 99291; J0131; J2543; J3370; J7120

== ENCOUNTER 2024-04-25 23:29 | Emergency (ER) | payer MEDICARE, SELFPAY ==
[2024-04-25 23:29] VITALS: BP 140/74; PULSE 92; RESP 18; TEMP 37.6; O2SAT 97; BMI 25.1
[2024-04-25 23:30] VITALS: BP 129/73; PULSE 94; O2SAT 97
--- NOTE | 2024-04-25 23:49 | ED_ITS ---
Discharge Plan Disposition Patient Disposition: Xfer [facility] Hospital Prescriptions Prescriptions: New sulfamethoxazole-trimethoprim 800-160 mg tablet 1 tab PO BID 7 Days Qty: 14 0RF No Action nystatin-triamcinolone 100,000-0.1 unit/g-% cream 1 applic topical BID 30 Days Qty: 30 0RF Rx Instructions: Apply BID lightly to glans penis. lisinopril 20 mg Tablet 40 mg PO DAILY 30 Days Qty: 60 0RF sennosides-docusate sodium [Stool Softener-Stimulant Laxat] 8.6-50 mg Tablet 1 tab PO BIDP PRN30 Days Qty: 0 0RF amlodipine 5 mg Tablet 10 mg PO DAILY 30 Days Qty: 60 0RF calcium carbonate [Tums] 200 mg calcium (500 mg) Tablet,Chewable 500 mg PO QIDP PRN (Reason: Heartburn) Qty: 0 0RF Activity Restrictions/Add. Instructions Additional Instructions/Restrictions: Laboratory workup in the ER was only remarkable for UTI. Davis was replaced. The Davis that was in place was likely somewhat clogged. Patient did have mild bleeding after prior Davis was removed. Patient was given IV antibiotics in the ER and discharged with prescription for Bactrim. Clinical Impressions Clinical Impression: Urinary tract infection Qualifiers: Urinary tract infection type: catheter-associated UTI Indwelling urinary catheter type: indwelling urethral catheter Encounter type: initial encounter Q ualified Code(s): T83.511A - Infection and inflammatory reaction due to indwelling urethral catheter, initial encounter Instructions Patient Instructions: DI for Urinary Tract Infection (UTI), DI for Urinary Tract Infection in Children Print Language Print Language: Malawian Discharge ED Provider: Jose Francisco Beck General Adult HPI General Chief complaint: Urogenital-Male Stated complaint: UTI Time Seen by Provider: 04/25/24 23:33 Mode of Arrival: EMS Source of Information: EMS Limitations: Altered Mental Status Description of Symptoms (Recalled from ER Triage Doc. by RN): Patient was sent via halfway for UTI History of Present Illness HPI narrative: 78-year-old male halfway resident, bedbound with history of urinary retention with indwelling Davis presents for reported fever. Per halfway, patient had abnormal vital signs with low blood pressure tachycardia and fever at the facility tonight. Patient recently was diagnosed with UTI but has not been started on antibiotics yet per facility. On EMS arrival to their facility, patient had normal blood pressure, normal heart rate, temperature of 100.9. Patient reports that he has no complaints at this time, he does not even believe that he had a fever. Related Data Previous Rx's ?Medication ?Instructions ?Recorded amlodipine 5 mg tablet 10 mg (2 x 5 mg) PO DAILY 30 days 02/18/23 #60 tabs calcium carbonate (Tums) 500 mg (2.5 x 200 mg calcium (500 02/18/23 mg)) PO QIDP PRN Heartburn #0 tabs lisinopril 20 mg tablet 40 mg (2 x 20 mg) PO DAILY 30 days 02/18/23 #60 tabs sennosides 8.6 mg-docusate sodium 1 tab PO BIDP PRN 30 days #0 tabs 02/18/23 50 mg tablet (Stool Softener-Stimulant Laxative) nystatin-triamcinolone 100,000 1 applic topical BID 30 days #30 12/23/23 unit/g-0.1 % topical cream grams sulfamethoxazole 800 1 tab PO BID 7 days #14 tabs 04/26/24 mg-trimethoprim 160 mg tablet Allergies Allergy/AdvReac Type Severity Reaction Status Date / Time No Known Allergies Allergy Verified 12/23/23 13:11 [facility] Disclaimer: The information contained in this section may have been updated after the patient was seen, as this information can be updated by other users. Medical History History of left heart catheterization (LHC) Hyperlipidemia Hypertension Family History Other No significant family history Social History Smoking Status: Never smoker alcohol intake: current current occupational status: unemployed Travel in the last 8 weeks: None Have you lived/traveled outside US in past 30 days?: No Contact w/someone who lives/traveled outside US past 30 days?: No Exposure to someone with infectious disease in past 14 days?: No Do you have a fever (greater than 100.4 F or 38 C)?: No Have you tested positive for COVID-19: No Exposed to someone with COVID-19 in past 14 days?: No Do you have a sore throat?: No Do you have a cough?: No Do you have any weakness?: No Do you have any diarrhea?: No Are you experiencing any unusual bleeding?: No Do you have any muscle aches/pain?: No Do you have any abdominal pain?: No Are you experiencing loss of taste or smell?: No Other Medical History Have you received the Flu Vaccine for this season: No Have you received the Pneumonia Vaccine: No ROS Obtained: Yes All systems reviewed & no additional complaints except as documented Physical Exam General General appearance: alert and in no apparent distress Head Head exam: atraumatic and normocephalic Eye Eye exam: Present normal appearance, PERRL and EOMI ENT ENT exam: Present normal oropharynx and normal external ear exam Neck Neck exam: Present normal inspection and full ROM Chest Chest inspection: Present normal inspection and symmetric chest wall rise; Absent tenderness Respiratory Respiratory exam: Present normal lung sounds bilaterally; Absent respiratory distress Cardiovascular Cardiovascular exam: Present regular rate and normal rhythm Abdominal Exam Abdominal exam: Present soft; Absent distention, tenderness or guarding Extremities Exam Extremities exam: Present normal inspection; Absent edema or joint swelling Back Exam Back exam: Present normal inspection; Absent tenderness Neurological Exam Neurological exam: Present alert and oriented X3; Absent motor sensory deficit Psychiatric Psychiatric exam: Present normal affect and normal mood Skin Skin exam: Present warm, dry and normal color Lymphatic Lymphatic Findings: no adenopathy Medical Decision Making Medical Records Medical records reviewed: Yes I reviewed the patient's medical records. Screening: Per USPSTF and CDC recommendations, given the prevalence of disease in our region, it is our hospital?s policy to screen for HIV and viral Hepatitis for all patients aged 18 and over and those with ongoing risk factors. Valentin Inquiry Pt receiving controlled substance: No Valentin was queried for this patient: No Vital Signs: 04/25/24 23:29 04/25/24 23:30 Temperature 99.7 F H Temperature Source Temporal Artery Scan Pulse Rate 94 H Pulse Rate [Right Radial] 92 H Respiratory Rate 18 Blood Pressure 129/73 Blood Pressure [Right Arm] 140/74 Blood Pressure Mean [Right Arm] 96 Blood Pressure Source [Right Arm] Automatic Cuff Blood Pressure Position [Right Arm] Supine 02 Sat by Pulse Oximetry 97 97 Oxygen Delivery Method Room Air Lab Data Lab results reviewed: Yes I reviewed the patient's lab results. Lab Results 04/25/24 23:24: Urine Color Yellow, Urine Appearance Cloudy, Urine pH 7.5, Ur Specific [place] 1.020, Urine Protein 1+ A, Urine Glucose (UA) Negative, Urine Ketones Negative, Urine Blood 2+ A, Urine Nitrate Negative, Urine Bilirubin Negative, Urine Urobilinogen 1.0, Ur Leukocyte Esterase 3+ A, Urine RBC Occasional, Urine WBC 20-50, Ur Squamous Epith Cells None, Urine Bacteria 4+ 04/25/24 23:59: WBC 8.1, RBC 3.13 L, Hgb 9.2 L, Hct 28.4 L, MCV 90.7, MCH 29.4, MCHC 32.4, RDW 14.6, Plt Count 231, MPV 9.7, Neut % (Auto) 63.4, Lymph % (Auto) 16.9, [place] % (Auto) 9.1, Eos % (Auto) 9.4, Baso % (Auto) 0.5, Neut # (Auto) 5.1, Lymph # (Auto) 1.4, [place] # (Auto) 0.7, Eos # (Auto) 0.8 H, Baso # (Auto) 0.0, Sodium 136, Potassium 4.1, Chloride 99, Carbon Dioxide 27, Anion Gap 14.1, BUN 18, Creatinine 0.80, Estimated Creat Clear 65, Estimated GFR 93, Est GFR ( Amer) 113, Glucose 118 H, Calcium 8.8, Total Bilirubin 0.5, AST 45, ALT 44, Alkaline Phosphatase 90, Total Protein 7.7, Albumin 3.8, Globulin 3.9 H, A lbumin/Globulin Ratio 1.0 L 04/25/24 23:59 04/25/24 23:59 Orders (Tests/Meds): ED MEDICATIONS Discontinued Medications Generic Name Dose Route Start Last Admin Trade Name Freq PRN Reason Stop Dose Admin Ceftriaxone Sodium 2 gm/ 100 mls @ 200 mls/hr 04/26/24 00:15 04/26/24 00:37 Sodium Chloride IV 04/26/24 00:44 200 mls/hr ONCE ONE Administration ORDERS Category Date Time Status CBC w/Auto Diff [Complete Blood Count Auto Diff] Stat Lab 04/25/24 23:59 Completed CMP [Comprehensive Metabolic Panel] Stat Lab 04/25/24 23:59 Completed UA [Urinalysis and Microscopic] Stat Lab 04/25/24 23:24 Completed Blood Culture Stat Micro 04/26/24 00:00 Received Urine Culture Stat Micro 04/25/24 23:24 Received Tissue Perfus/Sepsis Re-Eval Sepsis Re-Evaluation Performed: Yes Date Performed: 04/26/24 Time Performed: 01:14 Medical Decision Narrative: 78-year-old male with history of indwelling Davis for urinary retention presents for reported fever and abnormal vital signs at nursing facility after recent UTI diagnosis. History was obtained via interactive discussion with patient, EMS, chart. On arrival, patient is febrile, hemodynamically stable, satting properly on room air, well-appearing, moving all extremities spontaneously. Full physical exam performed and significant for clear lungs bilaterally, no significant abdominal tenderness. Differential includes but is not limited to UTI, pyelonephritis, COVID flu, bacteremia.. Workup initiated including CBC CMP UA blood cultures urine urine culture.. I reviewed the patient's prior cultures, his prior urine had some resistance, but was sensitive to ceftriaxone and Bactrim. Patient's Davis catheter was replaced in the ER. On re-evaluation, patient [remains afebrile, HD stable.] Laboratory workup independently interpreted by me and significant for no leukocytosis, stable anemia, normal renal function, no significant electrolyte derangement. Urine is consistent with acute infection. Admission was considered, but deemed unnecessary due to hemodynamic stability, asymptomatic, afebrile here. Given patient history, exam and workup, patient's presentation most likely represents urinary tract infection secondary to indwelling Davis. A fresh Davis was placed, patient was initiated on ceftriaxone and ultimately discharged back to his facility with prescription for Bactrim with cultures pending. Procedures Risk/Benefits of Procedure(s) Were Explained: Yes Critical Care Critical Care Time Critical Care Time: No
[2024-04-25 23:58] LABS: Microscopic, Urine URINE MICROSCOPIC (MICROSCOPIC)
[2024-04-26 00:06] LABS: Appearance,Urine Cloudy (Clear); Bilirubin,Urine Negative (Negative); Blood, Urine 2+ (Negative); Color,Urine YELLOW (Yellow); Glucose,Urine (UA) Negative (Negative); Ketones,Urine Negative (Negative); Leukocyte Esterase,Urine 3+ (Negative); Nitrate,Urine Negative (Negative); PH,Urine 7.5 (5.0-8.5); Protein,Urine 1+ (Negative)
[2024-04-26 00:13] LABS: Basophils % 0.5 % (0.1-2.0); Eosinophils # 0.8 K/mm3 (0.0-0.4); Eosinophils % 9.4 % (0.1-12.0); Hematocrit 28.4 % (42.0-52.0); Hemoglobin 9.2 g/dL (14.1-18.0); Lymphocytes # 1.4 K/mm3 (0.7-4.5); Lymphocytes % 16.9 % (10-50); Mean Corpuscular HGB Conc 32.4 g/dL (31.8-35.4); Mean Corpuscular Hemoglobin 29.4 pg (27.0-31.2); Mean Corpuscular Volume 90.7 fl (80-94); Mean Platelet Volume 9.7 fl (7.4-10.4); Monocytes # 0.7 K/mm3 (0.1-1.0); Monocytes % 9.1 % (1.7-9.3); Neutrophils # 5.1 K/mm3 (1.8-7.8); Neutrophils % 63.4 % (37.0-80.0); Platelet Count 231 K/mm3 (142-424); Red Blood Count 3.13 M/mm3 (4.60-6.20); Red Cell Distribution Width 14.6 % (11.5-17.5); White Blood Count 8.1 K/mm3 (4.8-10.8)
[2024-04-26 00:15] LABS: WBC,Urine 20-50 #/hpf (0-3)
[2024-04-26 00:16] LABS: Bacteria,Urine 4+ /lpf; RBC,Urine Occasional #/hpf (0-3)
[2024-04-26 00:19] LABS: Alanine Aminotransferase 44 U/L (12-78); Albumin Level 3.8 g/dl (3.5-5.0); Alkaline Phosphatase 90 U/L (38-126); Anion Gap 14.1 mEq/L (5-15); Aspartate Amino Transferase 45 U/L (17-59); Bilirubin,Total 0.5 mg/dl (0.2-1.3); Blood Urea Nitrogen 18 mg/dl (9-20); Calcium 8.8 mg/dl (8.4-10.2); Carbon Dioxide 27 mmol/L (22.0-30.0); Chloride 99 mmol/L (98-107); Creatinine Clearance Estimated 65 mL/min (50-200); Estimated Glomerular Filt Rate 93 ml/min (>60); GFR (African American) 113 ML/MIN (>60); Globulin 3.9 g/dL (1.3-3.2); Glucose 118 mg/dl (74-100); Potassium 4.1 mmoL/L (3.5-5.1); Sodium 136 mmol/L (136-145); Total Protein,Serum 7.7 g/dl (6.3-8.2)
[2024-04-26] MEDS: CEFTRIAXONE SODIUM 2 GM in 0.9 % SODIUM CHLORIDE 100 ML IV (00:37)
[2024-04-26 01:20] VITALS: BP 146/74; PULSE 84; RESP 16; TEMP 36.6; O2SAT 96
--- NOTE | 2024-04-28 10:47 | PC.NURSE ---
urine culture discussed with , no new orders
== END 2024-04-26 01:34 ==
PROVIDERS: Emergency Provider Emergency Medicine
DX: N39.0 Urinary tract infection, site not specified (principal); T83.511A Infection and inflammatory reaction due to indwelling urethral catheter, initial encounter; R50.9 Fever, unspecified; R03.1 Nonspecific low blood-pressure reading; R00.0 Tachycardia, unspecified
CPT/HCPCS: 80053; 81001; 85025; 87040; 87086; 87088; 87186; 96365; 99283; J0696

== ENCOUNTER 2024-07-31 07:15 | Observation (INO) | payer MEDICARE, SELFPAY ==
[2024-07-31] VITALS (50 sets, daily range): BP systolic 77–182; BP diastolic 45–98; PULSE 64–100; RESP 12–24; TEMP 36.8–38.3; O2SAT 68–100; BMI 24.4; BMI 23.1
--- NOTE | 2024-07-31 07:16 | XR_ITS ---
FINAL REPORT CLINICAL HISTORY: fever, AMS COMPARISON: 11/28/2023 FINDINGS: A portable view of the chest was obtained. There are low lung volumes. Cardiac and mediastinal silhouettes are within normal limits. The lungs are clear. There is no pleural effusion or pneumothorax. Old posterior left rib fractures are again noted. IMPRESSION: No acute process on this portable exam. Reviewed, Interpreted and Dictated by Lauryn Andersen MD Transcribed by Isa Vargas Authenticated and [facility]
--- NOTE | 2024-07-31 07:22 | ECG_ITS ---
APPROVED REPORT Exam: Resting ECG HR:90 bpm ECG Measurements Heart Rate 90 AXES DE 188 P 76 QRSd 95 QRS 50 QT 362 T 59 QTc 410 Conclusion Sinus rhythm Electronically signed by : NARINDER GODWIN, 08/02/2024 19:36:59
--- OUTSIDE RECORDS SUMMARY | 2024-07-31 07:22 | XMS_ITS | Data Portability ---
Author Organization [facility] ADMIN Address [address] [place] [address] Care Team Providers Care Heel Sander Rubber Name Role Phone RUFINA JAMES Primary Care Provider Assessment No assessment recorded. Plan of Treatment Reminders Order Date Submit Date Provider Last Modified By Organization Details Last Modified Time Details Appointments None recorded. Lab None recorded. 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 Doyle for his cellulitis and significant onychomycos is 2022 023 [email or web address] Donny Doyle DPM, [address] [place], [address], 3 14:01:16 Procedures None recorded. Surgeries None recorded. Imaging None recorded. Medication Orders doxycycline hyclate 100 mg capsule 2022 023 MYLES [facility], [address] [place] [address] [address] [place], [id number], 3 14:21:20 Augmentin 875 mg-125 mg tablet 2022 023 [email or web address] n43 [facility], [address] [place] [address] [address] [place], [place], [id number], 3 13:36:27 Patient TargetsNo targets recorded. Patient Instructions Encounter Date Encounter Id Patient Instructions Last Modified By Organization Details Last Modified Time 08/21/2022 [id number] I contacted the emergency room at [facility]. I am going to send the patient there. He can expect admission for the cellulitis and can also expect IV therapy along with diagnostic studies. [email or web address] Not available 08/21/2022 15:53:16 09/10/2022 [id number] distraction pressure was applied to the tick and released. 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 Doyle for his cellulitis and significant onychomycosis Referring Physician: Rufina James, Family Medicine, Encounter Date: 08/29/2022 Results Created Date Observation Date Name Description Value Unit Range Abnormal Flag Note LastModifiedBy Organization Detail LastModifiedTime 04/13/19 24 04/11/2023 US, echoc ardio gram, trans thora cic, compl ete, w/ color flow No observ ation record ed. [facility] (Central Scheduling) [address] [facility], [place], [address], 04/15/2023 10:20:37 Result Notes None recorded. Problems Name Problem SNOMED Code Status Onset Date Resolution Date Notes Provider Name and Address Organization Details Recorded Time Pain in left foot 6524330607191 07 Active 2022 RADHA NORTON [facility], [place], [address], [facility] & [place] 3 15:52:43 Cellulitis of left foot 4024627975890 9101 Active 2022 RADHA NORTON [facility] [address], [place], [address], [facility] & [place] 3 15:52:49 Onychomycos is 999049169 Active 2022 RADHA NORTON [facility],[address], [place], [address], [facility] & [place] 3 14:52:48 Problem Notes None recorded. Procedures Surgical History None recorded. Imaging Results Imaging Date Name Status LastModified by Organiz ation Details LastModified Time 04/11/2023 US, echocardiog laxmi, transthorac ic, complete, w/ color flow completed [facility] (Central Scheduling) [address] [facility] , [place], [address], 04/15/2023 10:20:37 Procedure Notes None recorded. Medical Equipment None Reported. Allergies No known drug allergies Medications Name Sig Start Date Stop Date Status Note LastModified by Organization Details LastModified Time atorvastatin 40 mg tablet take 1 tablet (40 mg) by MOUTH once daily active Not Available Not Available No t Available doxycycline hyclate 100 mg capsule TAKE ONE CAPSULE BY MOUTH TWICE DAILY FOR 10 DAYS active Not Available Not Available No t Available metoprolol succinate ER 50 mg tablet,exten ded release 24 hr TAKE ONE TABLET BY MOUTH ONCE DAILY active Not Available Not Available No t Available lisinopril 20 mg tablet take 1 tablet BY MOUTH twice daily active Not Available Not Available No t Available amlodipine 5 mg tablet take 1 tablet BY MOUTH once daily active Not Available Not Available No t Available amoxicillin 875 mg-potassium clavulanate 125 mg tablet TAKE ONE TABLET BY MOUTH EVERY TWELVE HOURS FOR 10 DAYS 09/10 completed Not Available Not Available Not Available Vitals Date Recorded Body temperature Oxygen saturation Oxygen saturation in Arterial blood by Pulse oximetry Heart rate Systolic blood pressure Diastolic blood pressure Provider Name and Address Organization Details Last Updated DateTime 3 97.7 [degF] 96 % 96 % 99 /min 138 mm[Hg] 84 mm[Hg] Mora Shetty [facility] & [place] 3 15:35:27 Date Recorded Body temperature Oxygen saturation Oxygen saturation in Arterial blood by Pulse oximetry Heart rate Systolic blood pressure Diastolic blood pressure Provider Name and Address Organization Details Last Updated DateTime 3 98.6 [degF] 97 % 97 % 88 /min 150 mm[Hg] 76 mm[Hg] Anny Robertsbetzy [facility] & [place] 3 14:28:32 Date Recorded Body temperature Oxygen saturation Oxygen saturation in Arterial blood by Pulse oximetry Heart rate Systolic blood pressure Diastolic blood pressure Provider Name and Address Organization Details Last Updated DateTime 3 97.5 [degF] 96 % 96 % 74 /min 148 mm[Hg] 82 mm[Hg] Stacy CALDERÓN [facility] & [place] 13:36:13 Social History None recorded. Functional Status Question Answer Note LastModified by Organizat ion Details LastModified Time Do you use any illicit or recreational drugs? No Information not available 08/29/2022 What is your level of alcohol consumption? None Information not available 08/29/2022 Mental Status None recorded. Family History Relationship Description Onset Age of this Age Resolved Age Notes LastModified by Organization Details LastModified Time Father No current problems or disability [email or web address] Not available 08/29 14:29:15 Mother No current problems or disability [email or web address] Not available 08/29 14:29:15 Medical History Condition Response Other Y Immunizations Vaccine Type Date Status Note Provider Nam e and Address Organization Details Recorded Time Influenza, high-dose, quadrivalent, PF 01/14/2020 completed Anny sapp [facility] & [place] 08/29/2022 14:27:33 COVID-19, mRNA, LNP-S, PF, 100 mcg/0.5mL dose or 50 mcg/0.25mL dose 06/07/2020 completed Anny sapp [facility] - [facility] & [place] 08/29/2022 14:27:34 COVID-19, mRNA, LNP-S, PF, 100 mcg/0.5mL dose or 50 mcg/0.25mL dose 07/08/2020 completed Anny sapp [facility] - [facility] & [place] 08/29/2022 14:27:34 Past Encounters Encounter ID Performer Location Encounter Start Date Encounter Closed Date Diagnosis/Indication Diagnosis SNOMED-CT Code Diagnosis ICD10 Code Diagnosis Note [id number] Izzy Grififn DO [facility] [address] [address] 08/21/2022 15:14:07 08/21/2022 15:44:19 Pain in left foot 6205854298 02564 M79.672 Cellulitis of left foot 9238085718 7882766 L03.116 [id number] Izzy Griffin DO [facility] [address] [facility] [place] [address] 08/29/2022 14:16:50 08/29/2022 14:56:13 Cellulitis of left foot 9792941967 7890514 L03.116 Pain in left foot 840075 0236 68747 M79.672 Onychomycosis 663117177 B35.1 [id number] Izzy Griffin DO [facility] [address] [place] [address] 09/10/2022 13:28:18 09/10/2022 14:07:13 Bite of tick 985637741 W57.XXXA Cellulitis of left foot 2196940702 7975583 L03.116 Onychomycosis 865040334 B35.1 Health Concerns Section Related Observation LastModified by Organization Detai ls LastModified Time None Recorded Concern Status LastModified by Organization Details LastModified Time None Recorded Advance Directives Directive None Recorded Payers Insurance Date Sequence Insurance Name Policy Number Policy Hathaway Covered Member ID Hathaway Member ID Guarantor Name 01/26/2024 [place]IC[place]: [employer] - [facility] Vega A Conkel [id number] Vega A Conkel 09/07/2022 1 [place] Vega A Conkel [id number] Vega A Conkel 11/23/2019 1 [place] Vega A Conkel [id number] Vega A Conkel 09/07/2022 1 [place] [employer] - [facility] Vega A Conkel [id number] Vega A Conkel 11/23/2019 2 [place] [facility] Vega A Conkel [id number] Vega A Conkel 01/26/2024 [place] Vega A Conkel [id number] Vega A Conkel Notes Date Note Type Note Provider Name and Address Organization Details Recorded Time 08/21/2022 text/html Patient presents to the office today with complaints of left foot pain swelling and redness. States about 5 days ago he struck something with his 5th toe. Since then his foot is turned red and is swollen almost twice the size of his opposite extremity. His foot is hot to touch. No streaking up the leg. He denies any inguinal pain. He has pain with ambulation that he says is severe. Other than that he just cannot qualify as pain. He denies having any fevers or chills but said he just does not feel the best. He finds it hard to do his Daily activities. RADHA NORTON [address] [place] [address] Drive,[address], [place], [address], [facility] & [place] 08/22/2022 09:22:49 08/29/2022 text/html Patient presents the office today for follow-up after being discharged from the hospital for cellulitis of lower extremity. Since his is mission and discharge his erythema, edema and pain have improved significantly. He still has a slight amount of generalized redness about the foot up to the level of the ankle but there are no more red streaking going up his leg. He has no inguinal pain. He was discharged on Augmentin and that was completed 2 days ago. He had a total of 5 days worth a medications. RADHA NORTON [address], [place], [address], [place] - [facility] & [place] 08/30/2022 16:13:17 09/10/2022 text/html patient presents today follow-up on left foot cellulitis. Still has some erythema but is mild. He has been referred to podiatry but they have not called him with an appointment as of yet. He has no fevers or chills. He has completed his Augmentin but is having some stomach issues associated with it. He has significant onychomycosis to the toenails he has a tick that is imbedded on the anterior abdominal wall. There is a small amount of erythema surrounding it. It is been there for quite some time. Patient states he has been scratching at it to trying get it to release. RADHA NORTON [address], [place], [address], [place] - [facility] - [place] & [place] 09/11/2022 09:57:32
[2024-07-31 07:38] LABS: Lactate Venous 1.8 mmol/L (0.4-2.0); VBG Base Excess 2.1 mmol/L (-2.4-2.3); VBG HCO3 25.7 mmol/L (23-30); VBG PCO2 35.6 mmol/L (35-51); VBG PH 7.48 mmol/L (7.31-7.41); VBG PO2 156.7 mmol/L (28-40); VBG Total CO2 26.8 mmol/L (23-27)
[2024-07-31] MEDS: PIPERACILLIN/TAZO 4.5 GM in 0.9 % SODIUM CHLORIDE 100 ML IV ×3 (07:41→20:39)
[2024-07-31 07:50] LABS: Basophils # 0.1 K/mm3 (0-0.2); Basophils % 0.5 % (0.1-2.0); Eosinophils # 0.6 Kmm3 (0.0-0.4); Eosinophils % 5.4 % (0.1-12.0); Immature Granulocytes # 0.05 10^3uL; Immature Granulocytes % 0.4 %; Lymphocytes # 0.9 K/mm3 (0.7-4.5); Lymphocytes % 7.9 % (10-50); Mean Corpuscular HGB Conc 32.4 g/dL (31.8-35.4); Mean Corpuscular Hemoglobin 29.3 pg (27.0-31.2); Mean Corpuscular Volume 90.7 fl (80-94); Mean Platelet Volume 10.7 fl (7.4-10.4); Monocytes # 0.6 K/mm3 (0.1-1.0); Neutrophils # 9.2 K/mm3 (1.8-7.8); Neutrophils % 80.8 % (37.0-80.0); Nucleated Red Blood Cells # 0 10^3/uL; Nucleated Red Blood Cells % 0 %; Platelet Count 137 K/mm3 (142-424); Red Blood Count 3.75 M/mm3 (4.60-6.20); Red Cell Distribution Width 14.8 % (11.5-17.5); Red Cell Distribution Width-SD 49.7 fL; White Blood Count 11.4 K/mm3 (4.8-10.8)
--- NOTE | 2024-07-31 07:54 | HMH.EDGENADL ---
Discharge Plan Disposition Patient Disposition: Admitted Chief Complaint: Weakness Prescriptions Prescriptions: No Action sulfamethoxazole-trimethoprim 800-160 mg tablet 1 tab PO BID 7 Days Qty: 14 0RF tamsulosin [Flomax] 0.4 mg Capsule 0.4 mg PO DAILY docusate sodium [Colace] 100 mg Capsule 100 mg PO DAILY furosemide [Lasix] 40 mg Tablet 40 mg PO DAILY sennosides [senna] 8.6 mg Tablet 8.6 mg PO DAILY polyethylene glycol 3350 [Miralax] 17 gram Powder In Packet 17 g PO DAILY bisacodyl [Dulcolax (bisacodyl)] 10 mg Suppository 10 mg WI DAILY hyoscyamine sulfate [Levsin] 0.125 mg Tablet 0.125 mg PO QID levothyroxine [Synthroid] 125 mcg Tablet 125 mcg PO DAILY midodrine 2.5 mg tablet 2.5 mg PO TID Patient Comments: TAKE 1 TABLET BY MOUTH THREE TIMES DAILY potassium chloride 10 mEq Tablet,Er Particles/Crystals 10 meq PO BID multivit w-min #14-folic acid 1 mg Tablet 1 tab PO DAILY melatonin 3 mg Capsule 3 mg PO HS PRN (Reason: insomnia) sennosides-docusate sodium [Stool Softener-Stimulant Laxat] 8.6-50 mg tablet 1 tab PO BIDP PRN (Reason: prn) Referrals Follow up/Referrals: Provider,Referral, MD [Referring] - See instructions Clinical Impressions Clinical Impression: Sepsis, Pyelonephritis Print Language Print Language: Mongolian Discharge ED Provider: Jason Rg General Adult HPI General Chief complaint: Weakness Stated complaint: fever Time Seen by Provider: 07/31/24 07:23 Mode of Arrival: EMS Source of Information: Relative and EMS Description of Symptoms (Recalled from ER Triage Doc. by RN): Pt from [facility] [place], staff states pt has increased confussion, lethargic, hypotensive, febrile, and has blood in jarrett bag. History of Present Illness HPI narrative: Please note that above description of symptoms, in this electronic medical record under categorization of recalled from ER triage doctor by RN are reflective of an initial nursing assessment, however, is not reflective of my full history and physical exam that was personally taken and clarified. Consequentially, this preceding description of symptoms, which may include the patient's categorized chief complaint in the EMR, do not reflect my personal clinical impression, and the ultimate description of history of present illness and patient stated complaints should be deferred to this section of the note. Unless stated otherwise or congruent with this section of the note, additional signs, symptoms, or incongruence should be interpreted as inaccurate with my clinical impression. Related Data Home Medications ?Medication ?Instructions ?Recorded ?Confirmed bisacodyl 10 mg rectal suppository 10 mg WI DAILY 07/31/24 07/31/24 (Dulcolax (bisacodyl)) docusate sodium 100 mg capsule 100 mg PO DAILY 07/31/24 07/31/24 (Colace) furosemide 40 mg tablet (Lasix) 40 mg PO DAILY 07/31/24 07/31/24 hyoscyamine sulfate 0.125 mg 0.125 mg PO QID 07/31/24 07/31/24 tablet (Levsin) levothyroxine 125 mcg tablet 125 mcg PO DAILY 07/31/24 07/31/24 (Synthroid) melatonin 3 mg capsule 3 mg PO HS PRN insomnia 07/31/24 07/31/24 midodrine 2.5 mg tablet 2.5 mg PO TID 07/31/24 07/31/24 multivitamin with minerals 1 tab PO DAILY 07/31/24 07/31/24 no.14-folic acid 1 mg tablet polyethylene glycol 3350 17 gram 17 g PO DAILY 07/31/24 07/31/24 oral powder packet (Miralax) potassium chloride 10 mEq 10 meq PO BID 07/31/24 07/31/24 tablet,extended release(part/cryst) sennosides 8.6 mg tablet (senna) 8.6 mg PO DAILY 07/31/24 07/31/24 sennosides 8.6 mg-docusate sodium 1 tab PO BIDP PRN prn 07/31/24 07/31/24 50 mg tablet (Stool Softener-Stimulant Laxative) tamsulosin 0.4 mg capsule (Flomax) 0.4 mg PO DAILY 07/31/24 07/31/24 Previous Rx's ?Medication ?Instructions ?Recorded sulfamethoxazole 800 1 tab PO BID 7 days #14 tabs 04/26/24 mg-trimethoprim 160 mg tablet Allergies Allergy/AdvReac Type Severity Reaction Status Date / Time No Known Allergies Allergy Verified 12/23/23 13:11 [facility] Disclaimer: The information contained in this section may have been updated after the patient was seen, as this information can be updated by other users. Medical History History of left heart catheterization (LHC) Hyperlipidemia Hypertension Family History Other No significant family history Social History Smoking Status: Unknown if ever smoked alcohol intake: current current occupational status: unemployed Travel in the last 8 weeks?: None Have you lived/traveled outside US in past 30 days?: No Contact w/someone who lives/traveled outside US past 30 days?: No Exposure to someone with infectious disease in past 14 days?: No Do you have a fever (greater than 100.4 F or 38 C)?: Yes Have you tested positive for COVID-19?: No Exposed to someone with COVID-19 in past 14 days?: No Do you have a sore throat?: No Do you have a cough?: No Do you have any weakness?: No Do you have any diarrhea?: No Are you experiencing any unusual bleeding?: No Do you have any muscle aches/pain?: No Do you have any abdominal pain?: No Are you experiencing loss of taste or smell?: No Other Medical History Have you received the Flu Vaccine for this season: No Have you received the Pneumonia Vaccine: No ROS Obtained: Yes All systems reviewed & no additional complaints except as documented Physical Exam General General appearance: lethargic Comment: At neurologic baseline, per visitor bedside. Responsive to pain with groans, but eyes are closed Head Head exam: atraumatic and normocephalic Eye Eye exam: Present normal appearance, PERRL and EOMI ENT ENT exam: Present mucous membranes dry Neck Neck exam: Present normal inspection, full ROM and trachea midline Respiratory Respiratory exam: Present normal lung sounds bilaterally; Absent respiratory distress, wheezes, stridor, accessory muscle use or prolonged expiratory phase Cardiovascular Cardiovascular exam: Present regular rate, normal rhythm and other (Pulses equal symmetric in upper and lower extremities) Abdominal Exam Abdominal exam: Present soft and distention; Absent tenderness, guarding, rebound, rigidity or pulsatile mass Abdominal tenderness: Present suprapubic (Fullness and tenderness) exam: Present other (Patient has large penile soft tissue defect likely from longstanding Jarrett with 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 Screening: Per USPSTF and CDC recommendations, given the prevalence of disease in our region, it is our hospital?s policy to screen for HIV and viral Hepatitis for all patients aged 18 and over and those with ongoing risk factors. Valentin Inquiry Pt receiving controlled substance: No Valentin was queried for this patient: No Vital Signs: 07/31/24 07:30 07/31/24 07:39 07/31/24 08:15 Temperature 101 F H Temperature Source Rectal Pulse Rate 88 85 Pulse Rate [Right] 88 Respiratory Rate 17 15 13 Blood Pressure 109/61 L 104/61 L Blood Pressure [Right Arm] 118/62 Blood Pressure Mean Blood Pressure Mean [Right Arm] 80 Blood Pressure Source [Right Arm] Automatic Cuff Blood Pressure Position [Right Arm] Supine 02 Sat by Pulse Oximetry 96 96 96 Oxygen Delivery Method Room Air Room Air Room Air 07/31/24 08:30 07/31/24 08:45 07/31/24 09:00 Temperature Temperature Source Pulse Rate 84 71 71 Pulse Rate [Right] Respiratory Rate 16 16 Blood Pressure 105/58 L 103/56 L 84/53 L Blood Pressure [Right Arm] Blood Pressure Mean 79 70 64 Blood Pressure Mean [Right Arm] Blood Pressure Source [Right Arm] Blood Pressure Position [Right Arm] 02 Sat by Pulse Oximetry 97 Oxygen Delivery Method Room Air 07/31/24 09:05 07/31/24 09:30 07/31/24 09:45 Temperature Temperature Source Pulse Rate 71 71 Pulse Rate [Right] Respiratory Rate 16 14 12 Blood Pressure 95/54 L 90/46 L 80/47 L Blood Pressure [Right Arm] Blood Pressure Mean 67 57 56 Blood Pressure Mean [Right Arm] Blood Pressure Source [Right Arm] Blood Pressure Position [Right Arm] 02 Sat by Pulse Oximetry Oxygen Delivery Method 07/31/24 09:58 07/31/24 10:00 07/31/24 10:20 Temperature Temperature Source Pulse Rate 72 72 Pulse Rate [Right] Respiratory Rate 16 15 14 Blood Pressure 89/52 L 91/56 L 85/53 L Blood Pressure [Right Arm] Blood Pressure Mean 61 63 61 Blood Pressure Mean [Right Arm] Blood Pressure Source [Right Arm] Blood Pressure Position [Right Arm] 02 Sat by Pulse Oximetry Oxygen Delivery Method Lab Data Lab Results 07/31/24 07:00: WBC 11.4 H, RBC 3.75 L, Hgb 11.0 L, Hct 34.0 L, MCV 90.7, MCH 29.3, MCHC 32.4, RDW 14.8, Plt Count 137 L, MPV 10.7 H, Neut % (Auto) 80.8 H, Lymph % (Auto) 7.9 L, [place] % (Auto) 5.0, Eos % (Auto) 5.4, Baso % (Auto) 0.5, Neut # (Auto) 9.2 H, Lymph # (Auto) 0.9, [place] # (Auto) 0.6, Eos # (Auto) 0.6 H, Baso # (Auto) 0.1, PT 12.4, INR 1.12 H, APTT 27.3, Sodium 138, Potassium 3.5, Chloride 105, Carbon Dioxide 28, Anion Gap 8.5, BUN 24 H, Creatinine 1.00, Estimated Creat Clear 69, Estimated GFR 72, Est GFR ( Amer) 87, Glucose 103 H, Lactate 1.0, Calcium 8.6, Magnesium 2.2, Total Bilirubin 1.0, AST 34, ALT 25, Alkaline Phosphatase 81, Troponin I 0.01, C-Reactive Protein 107.6 H, Total Protein 6.8, Albumin 3.5, Globulin 3.3 H, Albumin/Globulin Ratio 1.1, Procalcitonin 6.71 H, Urine Color Yellow, Urine Appearance Cloudy, Urine pH 7.0, Ur Specific Martha 1.010, Urine Protein 1+ A, Urine Glucose (UA) Negative, Urine Ketones Negative, Urine Blood 2+ A, Urine Nitrate Positive A, Urine Bilirubin Negative, Urine Urobilinogen 0.2, Ur Leukocyte Esterase 3+ A, Urine RBC 10-20, Urine WBC 50-100, Ur Squamous Epith Cells None, Urine Bacteria 2+ 07/31/24 07:22: VBG pH 7.48 H, VBG pCO2 35.6, VBG pO2 156.7 H, VBG HCO3 25.7, VBG Total CO2 26.8, VBG O2 Saturation 99.0 H, VBG Base Excess 2.1, VBG Lactic Acid 1.8 07/31/24 07:00 07/31/24 07:00 Orders (Tests/Meds): ED MEDICATIONS Generic Name Dose Route Start Last Admin Trade Name Freq PRN Reason Stop Dose Admin Piperacillin Sod/Tazobactam 100 mls @ 200 mls/hr 07/31/24 14:00 Sod 4.5 gm/ Sodium Chloride IV 08/10/24 13:59 Q6H JOSE EDUARDO Discontinued Medications Generic Name Dose Route Start Last Admin Trade Name Freq PRN Reason Stop Dose Admin Acetaminophen 1,000 mg 07/31/24 07:54 07/31/24 07:55 Acetaminophen 1,000mg/100ml Vial IV 07/31/24 07:55 1,000 mg ONCE ONE Administration Sodium Chloride 1,000 mls @ 999 mls/hr 07/31/24 07:21 07/31/24 07:53 Sod Chlor 0.9% 1000ml Bag IV 07/31/24 08:21 Not Given .Q1H1M ONE Piperacillin Sod/Tazobactam 100 mls @ 200 mls/hr 07/31/24 07:21 07/31/24 07:41 Sod 4.5 gm/ Sodium Chloride IV 07/31/24 07:50 200 mls/hr ONCE ONE Administration Lactated Ringer's 2,250 mls @ 1,125 mls/hr 07/31/24 07:36 07/31/24 07:59 Lactated Ringer's 1000 Ml Bag 30 ml/kg infuse over 2 hr (2250 ml) 07/31/24 09:35 1,125 mls/hr IV Administration .Q2H ONE ORDERS Category Date Time Status XR chest portable Stat Exams 07/31/24 07:16 Completed CRP [C-Reactive Protein] Stat Lab 07/31/24 07:00 Completed Complete Blood Count Auto Diff AMLAB Lab 08/01/24 06:00 Ordered Complete Blood Count Auto Diff Stat Lab 07/31/24 07:00 Completed Comprehensive Metabolic Panel AMLAB Lab 08/01/24 06:00 Ordered Comprehensive Metabolic Panel Stat Lab 07/31/24 07:00 Completed Lactic Acid Stat Lab 07/31/24 07:00 Completed Magnesium AMLAB Lab 08/01/24 06:00 Ordered Magnesium Stat Lab 07/31/24 07:00 Completed PT INR [Prothrombin Time INR] Stat Lab 07/31/24 07:00 Completed PTT [Activated Partial Thrombo Time] Stat Lab 07/31/24 07:00 Completed Procalcitonin Stat Lab 07/31/24 07:00 Completed Troponin I Stat Lab 07/31/24 07:00 Completed Urinalysis and Microscopic Stat Lab 07/31/24 07:00 Completed Blood Culture Stat Micro 07/31/24 07:00 Received Urine Culture Stat Micro 07/31/24 07:00 Received Venous Blood Gas Stat RT 07/31/24 07:22 Completed Medical Decision Narrative: 78-year-old male presenting with fever. 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 Patient was noted to have a fever yesterday, 07/30 at his retirement, no changes in mental status at that time, reportedly. EMS was called today because temperature was 103 ?F. Brought to the emergency department. Patient not able to contribute to history. History was obtained via conversation with patient's friend and EMS. On arrival, patient hemodynamically stable, who is responsive to pain with groans. Abdomen is soft, mildly tender and distended in suprapubic area. Penis with skin and soft tissue defect likely from chronic Jarrett. Jarrett catheter has lots of sediment and some blood. Differential includes urinary tract infection, sepsis, pneumonia, bacteremia, viral syndrome, among others. Patient placed on continuous cardiac monitoring and continuous pulse ox with initial blood pressure 118/62, heart rate 88, saturation 96% on room air. Patient febrile to 101 ?F rectally. Independent interpretation of EKG shows sinus rhythm 90 bpm with WI 188, QRS 95, QTc 410. Normal axis no acute ischemic change. Patient was given sepsis bolus, vancomycin and Zosyn for symptomatic management and correction of underlying abnormalities. Workup independently interpreted and significant for 11.4 white count with relative neutrophilia. Nonactionable VBG with pH 7.48/CO2 normal at 35/bicarb normal at 25 and normal lactate 1.8. Chemistry normal. On independent interpretation of imaging, patchy bilateral infiltrates which appear to be stable with the exception of left-sided perihilar infiltrate. See radiology read for full review of final results. On reevaluation, patient still resting at baseline on arrival. Tissue perfusion reassessment performed within 3 hours, hemodynamically stable, still responding to tactile stimuli Hospital medicine was contacted and case was discussed, patient to be admitted. Given patient presentation, workup, history, this most likely represents sepsis secondary to urinary tract infection. Because patient high risk for clinical decompensation, deemed appropriate for inpatient admission. Results were relayed to patient family who voiced understanding and patient was agreeable to inpatient admission and management. Patient was admitted to the hospital for further definitive management. Soils Engineer disclaimer Much of this encounter note is an electronic electrical and instrumentation mechanic spoken language to printed text. Electronic electrical and instrumentation mechanic of the spoken language may permit errors. Although I have reviewed the note, some errors may still exist. Critical Care Critical Care Time Critical Care Time: Yes (sepsis) Attestation: On 07/31/24, the high probability of a clinically significant, sudden or life threatening deterioration of the following system(s) required my full and direct attention, intervention and personal management. The time I documented below is in addition to time spent performing reported procedures but includes the following listed in this critical care notation. Total Time Total Critical Care Time: 35
[2024-07-31] MEDS: ACETAMINOPHEN 1,000MG/100ML VIAL 1000 MG IV (07:55)
[2024-07-31 07:56] LABS: Alanine Aminotransferase 25 U/L (12-78); Albumin Level 3.5 g/dl (3.5-5.0); Albumin/Globulin Ratio 1.1 (1.1-1.8); Alkaline Phosphatase 81 U/L (38-126); Anion Gap 8.5 mEq/L (5-15); Aspartate Amino Transferase 34 U/L (17-59); Blood Urea Nitrogen 24 mg/dl (9-20); Calcium 8.6 mg/dl (8.4-10.2); Carbon Dioxide 28 mmol/L (22.0-30.0); Chloride 105 mmol/L (98-107); Creatinine Clearance Estimated 69 mL/min (50-200); Estimated Glomerular Filt Rate 72 ml/min (>60); GFR (African American) 87 ML/MIN (>60); Globulin 3.3 g/dL (1.3-3.2); Glucose 103 mg/dl (74-100); Microscopic, Urine URINE MICROSCOPIC (MICROSCOPIC); Potassium 3.5 mmoL/L (3.5-5.1); Sodium 138 mmol/L (136-145); Total Protein,Serum 6.8 g/dl (6.3-8.2)
[2024-07-31 07:57] LABS: Magnesium 2.2 mg/dl (1.6-2.3)
[2024-07-31] MEDS: LACTATED RINGERS 1000ML 2,250 ML 1125 ML IV (07:59)
[2024-07-31 08:00] LABS: Activated Partial Thrombo Time 27.3 seconds (22.8-30.6)
[2024-07-31 08:01] LABS: C-Reactive Protein 107.6 mg/L (0-4)
[2024-07-31 08:03] LABS: INR 1.12 (0.9-1.1); Prothrombin Time 12.4 seconds (10.1-12.5)
--- NOTE | 2024-07-31 08:09 | PC.NURSE ---
Pt MATTHEW Ryder at bedside, educated on medications given, answering questions he has about care and treatment.
[2024-07-31 08:12] LABS: Troponin I 0.01 ng/ml (0.00-0.034)
[2024-07-31 08:13] LABS: Appearance,Urine CLOUDY (Clear); Bilirubin,Urine Negative (Negative); Blood, Urine 2+ (Negative); Color,Urine YELLOW (Yellow); Glucose,Urine (UA) Negative (Negative); Ketones,Urine Negative (Negative); Leukocyte Esterase,Urine 3+ (Negative); Nitrate,Urine POSITIVE (Negative); Protein,Urine 1+ (Negative); Urobilinogen,Urine 0.2 EU/dl (0.2)
[2024-07-31 08:15] LABS: Procalcitonin 6.71 ng/mL (0.0-2.0)
[2024-07-31 08:26] LABS: Bacteria,Urine 2+ /lpf; WBC,Urine 50-100 #/hpf (0-3)
--- NOTE | 2024-07-31 09:12 | PC.NURSE ---
Pt buttocks/coccyx are red and non bleachable charted under skin assessment per Lorraine.
--- NOTE | 2024-07-31 10:38 | P.HP_ITS ---
History of Present Illness *Admission Date: 07/31/24 *Reason for visit:: Sepsis, increased weakness *History of present illness: 78-year-old male with chronic indwelling catheter. Lives at [facility] where he is essentially bedbound. Presented with concern for increased confusion and weakness. Found to be hypotensive with fever. On workup in the ER, found to have temperature of 101, blood pressure initially normal at 118/62. Became hypotensive after initiating treatment for sepsis and UTI. Necessitated initiation of Levophed before getting to the floor. White count elevated at 11.4 with neutrophilia. Urine grossly abnormal concerning for catheter related infection. Medicine consulted for admission and further management due to sepsis and UTI. On arrival to the floor, patient is alert to self, disoriented however and gives history that he walked 2 miles yesterday. Does not know why he is at the hospital. Denies nausea or vomiting. Denies significant abdominal pain. [facility] Disclaimer: The information contained in this section may have been updated after the patient was seen, as this information can be updated by other users. Medical History Cervical disc disorder Insomnia Hypothyroid History of left heart catheterization (LHC) Hyperlipidemia Hypertension Family History Other No significant family history Social History Smoking Status: Unknown if ever smoked alcohol intake: current current occupational status: unemployed Travel in the last 8 weeks?: None Have you lived/traveled outside US in past 30 days?: No Contact w/someone who lives/traveled outside US past 30 days?: No Exposure to someone with infectious disease in past 14 days?: No Do you have a fever (greater than 100.4 F or 38 C)?: Yes Have you tested positive for COVID-19?: No Exposed to someone with COVID-19 in past 14 days?: No Do you have a sore throat?: No Do you have a cough?: No Do you have any weakness?: No Do you have any diarrhea?: No Are you experiencing any unusual bleeding?: No Do you have any muscle aches/pain?: No Do you have any abdominal pain?: No Are you experiencing loss of taste or smell?: No Other Medical History Have you received the Flu Vaccine for this season: No Have you received the Pneumonia Vaccine: No Review of Systems Review of Systems Review of systems:: unable to obtain (Patient pleasantly demented) Meds Home Medications and Allergies Home Medications ?Medication ?Instructions ?Recorded ?Confirmed ?Type bisacodyl 10 mg rectal suppository 10 mg [place] Q72H 07/31/24 07/31/24 History (Dulcolax (bisacodyl)) docusate sodium 100 mg capsule 100 mg PO DAILY 07/31/24 07/31/24 History (Colace) furosemide 40 mg tablet (Lasix) 40 mg PO DAILY 07/31/24 07/31/24 History hyoscyamine sulfate 0.125 mg 0.125 mg PO BID 07/31/24 07/31/24 History tablet (Levsin) levothyroxine 125 mcg tablet 125 mcg PO DAILY 07/31/24 07/31/24 History (Synthroid) melatonin 3 mg capsule 3 mg PO HS 07/31/24 07/31/24 History midodrine 2.5 mg tablet 2.5 mg PO TID 07/31/24 07/31/24 History multivitamin with minerals 1 tab PO DAILY 07/31/24 07/31/24 History no.14-folic acid 1 mg tablet polyethylene glycol 3350 17 gram 17 g PO DAILY 07/31/24 07/31/24 History oral powder packet (Miralax) potassium chloride 10 mEq 20 meq PO DAILY 07/31/24 07/31/24 History tablet,extended release(part/cryst) sennosides 8.6 mg tablet (senna) 8.6 mg PO DAILY 07/31/24 07/31/24 History sennosides 8.6 mg-docusate sodium 1 tab PO BIDP PRN Constipation 07/31/24 07/31/24 History 50 mg tablet (Stool Softener-Stimulant Laxative) tamsulosin 0.4 mg capsule (Flomax) 0.4 mg PO DAILY 07/31/24 07/31/24 History New Prescriptions to Start Prescriptions: Allergies Allergy/AdvReac Type Severity Reaction Status Date / Time No Known Allergies Allergy Verified 12/23/23 13:11 Exam Data for Last 24 hours Vital signs and Labs for Last 24 Hours: Temp Pulse Resp BP Pulse Ox O2 Del Method 101 F H 72 14 85/53 L 97 Room Air 07/31/24 07:39 07/31/24 10:00 07/31/24 10:20 07/31/24 10:20 07/31/24 08:30 07/31/24 08:30 Laboratory Results - last 24 hr 07/31/24 07:00: WBC 11.4 H, RBC 3.75 L, Hgb 11.0 L, Hct 34.0 L, MCV 90.7, MCH 29.3, MCHC 32.4, RDW 14.8, Plt Count 137 L, MPV 10.7 H, Neut % (Auto) 80.8 H, Lymph % (Auto) 7.9 L, [place] % (Auto) 5.0, Eos % (Auto) 5.4, Baso % (Auto) 0.5, Neut # (Auto) 9.2 H, Lymph # (Auto) 0.9, [place] # (Auto) 0.6, Eos # (Auto) 0.6 H, Baso # (Auto) 0.1, PT 12.4, INR 1.12 H, APTT 27.3, Sodium 138, Potassium 3.5, Chloride 105, Carbon Dioxide 28, Anion Gap 8.5, BUN 24 H, Creatinine 1.00, Estimated Creat Clear 69, Estimated GFR 72, Est GFR ( Amer) 87, Glucose 103 H, Lactate 1.0, Calcium 8.6, Magnesium 2.2, Total Bilirubin 1.0, AST 34, ALT 25, Alkaline Phosphatase 81, Troponin I 0.01, C-Reactive Protein 107.6 H, Total Protein 6.8, Albumin 3.5, Globulin 3.3 H, Albumin/Globulin Ratio 1.1, Procalcitonin 6.71 H, Urine Color Yellow, Urine Appearance Cloudy, Urine pH 7.0, Ur Specific [place] 1.010, Urine Protein 1+ A, Urine Glucose (UA) Negative, Urine Ketones Negative, Urine Blood 2+ A, Urine Nitrate Positive A, Urine Bilirubin Negative, Urine Urobilinogen 0.2, Ur Leukocyte Esterase 3+ A, Urine RBC 10-20, Urine WBC 50-100, Ur Squamous Epith Cells None, Urine Bacteria 2+ 07/31/24 07:22: VBG pH 7.48 H, VBG pCO2 35.6, VBG pO2 156.7 H, VBG HCO3 25.7, VBG Total CO2 26.8, VBG O2 Saturation 99.0 H, VBG Base Excess 2.1, VBG Lactic Acid 1.8 I & O for Last 24 hours: Intake & Output 07/28/24 07/29/24 07/30/24 07/31/24 23:59 23:59 23:59 23:59 Weight 81.647 kg Constitutional Constitutional: mild distress, thin, chronically ill appearing and cooperative *Routine HEENT Exam Head: Present normocephalic Eye: Present EOMI and PERRL ENT: Present mucous membranes moist Comments: his R eye appears swollen *Routine Neck Exam Neck: Present supple; Absent lymphadenopathy *Routine Respiratory Exam Respiratory: Present CTA bilaterally; Absent rhonchi or wheezes *Routine Cardiovascular Exam Cardiovascular: Present RRR *Routine Abdominal Exam Abdominal: Present soft and normoactive bowel sounds; Absent tenderness *Routine Rectal Exam Rectal:: deferred *Routine Genitalia Exam Genitalia:: deferred Comment:: Davis in place *Routine Extremities Exam Extremities: Absent cyanosis, clubbing or edema Comments: Sarcopenia, contractures of legs *Routine Skin Exam Skin: Present intact and warm; Absent rash Comments: Stage I decubitus wound on buttocks *Routine Neurological Exam Neurological: Present alert, altered mental status and moving all extremities Comments: Oriented to self only, told me he walked 10 miles yesterday. Is quite obviously bedbound Assessment and Plan *Assessment and plan (1) Pyelonephritis: Status: Acute Category: Medical Code(s): N12 - Tubulo-interstitial nephritis, not specified as acute or chronic (2) Sepsis: Status: Acute Category: Medical Code(s): A41.9 - Sepsis, unspecified organism (3) Catheter-associated urinary tract infection: Problem Comment: Present on admission Status: Acute Category: Medical Code(s): T83.511A - Infection and inflammatory reaction due to indwelling urethral catheter, initial encounter; N39.0 - Urinary tract infection, site not specified (4) Hypothyroid: Status: Acute Category: Medical Code(s): E03.9 - Hypothyroidism, unspecified (5) custodial resident: Status: Chronic Category: Social Hx Code(s): Z78.9 - Other specified health status (6) Decubitus ulcer of sacral region, stage 1: Status: Acute Category: Medical Code(s): L89.151 - Pressure ulcer of sacral region, stage 1 Plan 78-year-old male who presented with sepsis secondary to UTI from chronic indwelling catheter. Discussed case with ER physician, request admission for antibiotics and further management. I agreed to admit for further care. Admitted to ICU due to hypotension and sepsis. Currently on Levophed drip. Problems addressed as follows: Septic shock Catheter associated UTI - Presented with elevated white count, tachycardia, hypotension necessitating fluids and Levophed, infection with grossly abnormal urine. - Catheter exchanged, frankly purulent urine removed with replacement. - Initiated on Zosyn every 6 hours IV. - Cultures pending. - White count elevated 11.4, hemoglobin 11. CRP elevated at 1 7, Pro-Carlos 6.7 indicative of bacterial infection. - Kidney function abnormal with BUN 24, creatinine 1.0. Repeat CBC, CMP, magnesium ordered for the morning. - Repeat CBC, CMP, magnesium ordered for the morning. Hypothyroid: Continue levothyroxine 125 mcg daily Sleep disorder: Continue melatonin 3 mg nightly Chronic constipation: Continue bowel regimen with MiraLAX and docusate senna BPH: Continue tamsulosin 0.4 mg daily Clarifying CODE STATUS with POA Lovenox 40 mg subcu daily Regular diet
--- NOTE | 2024-07-31 11:21 | PC.NURSE ---
Dr Rg to order Levo for pt BP
--- NOTE | 2024-07-31 11:22 | SW/DCPLANNER ---
Addendum entered by Linda Nazario 07/31/24 12:44: Patient is currently private pay LTC at [facility]. Original Note: This patient currently resides at [facility] level of care. I will continue to follow up w/ Jennifer at [facility] until medically stable for discharge. Discharge date is unknown at this time.
--- NOTE | 2024-07-31 11:25 | PC.NURSE ---
house sup aware of bed request
--- NOTE | 2024-07-31 11:57 | PC.NURSE ---
report given to MARTHA Wilkinson on second floor.
[2024-07-31] MEDS: NOREPINEPHRINE BITARTRATE/D5W 8 MG/250 ML PLAST..BAG 15 MG IV (12:17)
--- NOTE | 2024-07-31 13:37 | PC.NURSE ---
arrived by tayla from ED @13:31
--- NOTE | 2024-07-31 14:02 | P.CONPHA_ITS ---
Pharmacy Intervention Comments: MEDICATION RECONCILIATION COMPLETED ON PATIENT USING MAR FROM [facility]. -TRICIA YANG, PERLAD
--- NOTE | 2024-07-31 14:02 | HMH.PHAINT1 ---
Pharmacy Intervention Comments: MEDICATION RECONCILIATION COMPLETED ON PATIENT USING MAR FROM [facility]. -TRICIA YANG, PERLAD
[2024-07-31] MEDS: BISACODYL 10MG SUPP 10 MG RC (18:40)
[2024-07-31] MEDS: ACETAMINOPHEN 650MG SUPPOSITORY 650 MG RC (20:48)
[2024-07-31] MEDS: 0.9 % SODIUM CHLORIDE 1000ML 1,000 ML 150 ML IV (23:27)
--- NOTE | 2024-07-31 23:31 | PC.NURSE ---
positive blood culture results reported from lab. Provider aware.
--- NOTE | 2024-07-31 23:45 | EXP.SEPSISRE ---
[facility] Tissue Perfusion Eval Sepsis Re-Evaluation Performed: Yes Date Performed: 07/31/24 Time Performed: 13:10
[2024-08-01] VITALS (8 sets, daily range): BP systolic 88–149; BP diastolic 47–83; PULSE 71–94; RESP 15–19; TEMP 36.8–38.3; O2SAT 94–97; BMI 23.1
[2024-08-01] MEDS: ACETAMINOPHEN 1,000MG/100ML VIAL 1000 MG IV (01:00)
[2024-08-01] MEDS: PIPERACILLIN/TAZO 4.5 GM in 0.9 % SODIUM CHLORIDE 100 ML IV ×2 (02:08→08:44)
[2024-08-01] MEDS: 0.9 % SODIUM CHLORIDE 1000ML 1,000 ML 150 ML IV (06:10)
[2024-08-01 07:32] LABS: Basophils % 0.3 % (0.1-2.0); Eosinophils % 0.7 % (0.1-12.0); Hematocrit 31.8 % (42.0-52.0); Hemoglobin 10.2 g/dL (14.1-18.0); Immature Granulocytes # 0.02 10^3uL; Immature Granulocytes % 0.3 %; Lymphocytes # 0.9 K/mm3 (0.7-4.5); Lymphocytes % 15.3 % (10-50); Mean Corpuscular HGB Conc 32.1 g/dL (31.8-35.4); Mean Corpuscular Hemoglobin 29.6 pg (27.0-31.2); Mean Corpuscular Volume 92.2 fl (80-94); Mean Platelet Volume 10.9 fl (7.4-10.4); Monocytes # 0.4 K/mm3 (0.1-1.0); Monocytes % 7.2 % (1.7-9.3); Neutrophils # 4.6 K/mm3 (1.8-7.8); Neutrophils % 76.2 % (37.0-80.0); Nucleated Red Blood Cells # 0 10^3/uL; Nucleated Red Blood Cells % 0 %; Platelet Count 105 K/mm3 (142-424); Red Blood Count 3.45 M/mm3 (4.60-6.20); Red Cell Distribution Width 14.6 % (11.5-17.5); Red Cell Distribution Width-SD 49.8 fL; White Blood Count 6.1 K/mm3 (4.8-10.8)
[2024-08-01 07:40] LABS: Alanine Aminotransferase 21 U/L (12-78); Albumin Level 2.8 g/dl (3.5-5.0); Albumin/Globulin Ratio 0.9 (1.1-1.8); Alkaline Phosphatase 71 U/L (38-126); Anion Gap 7.7 mEq/L (5-15); Aspartate Amino Transferase 33 U/L (17-59); Bilirubin,Total 1.1 mg/dl (0.2-1.3); Blood Urea Nitrogen 15 mg/dl (9-20); Calcium 8.2 mg/dl (8.4-10.2); Carbon Dioxide 24 mmol/L (22.0-30.0); Chloride 108 mmol/L (98-107); Creatinine Clearance Estimated 66 mL/min (50-200); Estimated Glomerular Filt Rate 81 ml/min (>60); GFR (African American) 98 ML/MIN (>60); Globulin 3.2 g/dL (1.3-3.2); Glucose 74 mg/dl (74-100); Magnesium 2.1 mg/dl (1.6-2.3); Potassium 3.7 mmoL/L (3.5-5.1); Sodium 136 mmol/L (136-145)
[2024-08-01] MEDS: POLYETHYLENE GLYCOL 3350 17 GM PACKET PO (08:43)
[2024-08-01] MEDS: DOCUSATE SODIUM 100 MG CAPSULE PO (08:43)
[2024-08-01] MEDS: LEVOTHYROXINE 125MCG (0.125MG) TAB 125 MCG PO (08:43)
[2024-08-01] MEDS: ENOXAPARIN 40MG/0.4ML SYRINGE 40 MG SUBCUT (08:43)
[2024-08-01] MEDS: HYOSCYAMINE 0.125MG TABLET 0.125 MG PO (08:43)
--- NOTE | 2024-08-01 10:00 | EXP.DC.SUM ---
General Admission date:: 07/31/24 Discharge date: 08/01/24 HPI HPI HPI: 78-year-old male with chronic indwelling catheter. Lives at [facility] where he is essentially bedbound. Presented with concern for increased confusion and weakness. Found to be hypotensive with fever. On workup in the ER, found to have temperature of 101, blood pressure initially normal at 118/62. Became hypotensive after initiating treatment for sepsis and UTI. Necessitated initiation of Levophed before getting to the floor. White count elevated at 11.4 with neutrophilia. Urine grossly abnormal concerning for catheter related infection. Medicine consulted for admission and further management due to sepsis and UTI. On arrival to the floor, patient is alert to self, disoriented however and gives history that he walked 2 miles yesterday. Does not know why he is at the hospital. Denies nausea or vomiting. Denies significant abdominal pain. Hospital Course Hospital Course Hospital Course: 78-year-old male who presented with sepsis secondary to UTI from chronic indwelling catheter. Discussed case with ER physician, request admission for antibiotics and further management. I agreed to admit for further care. Admitted to ICU due to hypotension and sepsis. Quickly weaned off Levophed. Has been hemodynamically stable for over 24 hours. At baseline mentation. White count improving. Tolerating p.o. intake. Based on previous cultures, will transition to ertapenem to complete course of antibiotics. Stable to discharge back to nursing facility for further management. Problems addressed as follows: Septic shock Catheter associated UTI - Presented with elevated white count, tachycardia, hypotension necessitating fluids and Levophed, infection with grossly abnormal urine. White count improved from 11-6. Was initiated on Zosyn based on previous urine cultures and sensitivities. Symptoms defervesced. Stable on room air with good tolerance of p.o. intake. Afebrile. Urine growing gram-negative rods. Still awaiting final speciation and sensitivity. Urine clearing. Recommend transitioning to ertapenem based on previous cultures. Will continue 1 g daily for 8 more doses to complete 10 days total. Catheter was exchanged with frankly purulent urine removed on replacement. Culture still pending at discharge. Currently growing gram-negative rods. Stable to discharge back to nursing facility. Recommend repeat CBC, CMP and 1 week to monitor for resolution of infection. Hypothyroid: Continue levothyroxine 125 mcg daily Sleep disorder: Continue melatonin 3 mg nightly Chronic constipation: Continue bowel regimen with MiraLAX and docusate senna BPH: Continue tamsulosin 0.4 mg daily Total time spent on discharge 32 minutes in counseling, documentation, chart review, and direct care with patient. Exam Data for Last 24 hours Vital signs and Labs for Last 24 Hours: Temp Pulse Resp BP Pulse Ox O2 Del Method 98.2 F 83 16 149/83 H 97 Room Air 08/01/24 08:00 08/01/24 08:48 08/01/24 08:48 08/01/24 08:48 08/01/24 08:48 08/01/24 08:48 Laboratory Results - last 24 hr 07/31/24 07:00: Urine Color Yellow, Urine Appearance Cloudy, Urine pH 7.0, Ur Specific [place] 1.010, Urine Protein 1+ A, Urine Glucose (UA) Negative, Urine Ketones Negative, Urine Blood 2+ A, Urine Nitrate Positive A, Urine Bilirubin Negative, Urine Urobilinogen 0.2, Ur Leukocyte Esterase 3+ A, Urine RBC 10-20, Urine WBC 50-100, Ur Squamous Epith Cells None, Urine Bacteria 2+ 08/01/24 06:10: WBC 6.1 D, RBC 3.45 L, Hgb 10.2 L, Hct 31.8 L, MCV 92.2, MCH 29.6, MCHC 32.1, RDW 14.6, Plt Count 105 L, MPV 10.9 H, Neut % (Auto) 76.2, Lymph % (Auto) 15.3, [place] % (Auto) 7.2, Eos % (Auto) 0.7, Baso % (Auto) 0.3, Neut # (Auto) 4.6, Lymph # (Auto) 0.9, [place] # (Auto) 0.4, Eos # (Auto) 0.0, Baso # (Auto) 0.0, Sodium 136, Potassium 3.7, Chloride 108 H, Carbon Dioxide 24, Anion Gap 7.7, BUN 15 D, Creatinine 0.90, Estimated Creat Clear 66, Estimated GFR 81, Est GFR ( Amer) 98, Glucose 74 D, Calcium 8.2 L, Magnesium 2.1, Total Bilirubin 1.1, AST 33, ALT 21, Alkaline Phosphatase 71, Total Protein 6.0 L, Albumin 2.8 L D, Globulin 3.2, Albumin/Globulin Ratio 0.9 L I & O for Last 24 hours: Intake & Output 07/29/24 07/30/24 07/31/24 08/01/24 23:59 23:59 23:59 23:59 Intake Total 175.356 / 072.658 6836 / 1373 Output Total 2300 / 2600 900 / 900 Balance -2124.644 / -2424.644 473 / 473 Weight 77.252 kg 77.655 kg Microbiology Reports for the Last 24 Hours: Microbiology 07/31/24 07:00 Blood Blood Culture - Preliminary NO GROWTH AFTER 24 HOURS 07/31/24 13:50 Anus CRE Surveillance Culture - Final 07/31/24 07:00 Blood Blood Culture - Preliminary 07/31/24 07:00 Urine,Clean Catch Urine Culture - Preliminary Gram Negative Rods Constitutional Constitutional: no acute distress, average body habitus, chronically ill appearing, disheveled and cooperative *Routine HEENT Exam Head: Present normocephalic; Absent atraumatic (Injury above right eye with slight abrasion and erythema.) Eye: Present EOMI and PERRL ENT: Present mucous membranes moist *Routine Neck Exam Neck: Present supple; Absent lymphadenopathy *Routine Respiratory Exam Respiratory: Present CTA bilaterally; Absent rhonchi, wheezes or crackles *Routine Cardiovascular Exam Cardiovascular: Present RRR *Routine Abdominal Exam Abdominal: Present soft and normoactive bowel sounds; Absent tenderness *Routine Rectal Exam Patient deferred: visual exam *Routine Exam Comments: Chronic Davis in place. Exchanged on admission *Routine Extremities Exam Extremities: Absent cyanosis, clubbing or edema Comments: Sarcopenia *Routine Skin Exam Skin: Present warm; Absent rash Comments: Stage I decub sacral region *Routine Neurological Exam Neurological: Present alert and moving all extremities; Absent altered mental status Results Data Completed and Pending Labs on day of discharge: Labs from last 24 hours 08/01/24 07/31/24 06:10 07:00 WBC 6.1 D RBC 3.45 L Hgb 10.2 L Hct 31.8 L MCV 92.2 MCH 29.6 MCHC 32.1 RDW 14.6 Plt Count 105 L MPV 10.9 H Neut % (Auto) 76.2 Lymph % (Auto) 15.3 [place] % (Auto) 7.2 Eos % (Auto) 0.7 Baso % (Auto) 0.3 Neut # (Auto) 4.6 Lymph # (Auto) 0.9 [place] # (Auto) 0.4 Eos # (Auto) 0.0 Baso # (Auto) 0.0 Sodium 136 Potassium 3.7 Chloride 108 H Carbon Dioxide 24 Anion Gap 7.7 BUN 15 D Creatinine 0.90 Estimated Creat Clear 66 Estimated GFR 81 Est GFR ( Amer) 98 Glucose 74 D Calcium 8.2 L Magnesium 2.1 Total Bilirubin 1.1 AST 33 ALT 21 Alkaline Phosphatase 71 Total Protein 6.0 L Albumin 2.8 L D Globulin 3.2 Albumin/Globulin Ratio 0.9 L Urine Color Yellow Urine Appearance Cloudy Urine pH 7.0 Ur Specific [place] 1.010 Urine Protein 1+ A Urine Glucose (UA) Negative Urine Ketones Negative Urine Blood 2+ A Urine Nitrate Positive A Urine Bilirubin Negative Urine Urobilinogen 0.2 Ur Leukocyte Esterase 3+ A Urine RBC 10-20 Urine WBC 50-100 Ur Squamous Epith Cells None Urine Bacteria 2+ Preliminary micro results at discharge 07/31/24 07:00 Blood Culture - Preliminary Blood NO GROWTH AFTER 24 HOURS 07/31/24 07:00 Blood Culture - Preliminary Blood 07/31/24 07:00 Urine Culture - Preliminary Urine,Clean Catch Gram Negative Rods DS: Diagnosis Discharge Diagnosis (1) Pyelonephritis: Status: Acute Code(s): N12 - Tubulo-interstitial nephritis, not specified as acute or chronic (2) Sepsis: Status: Acute Code(s): A41.9 - Sepsis, unspecified organism (3) Catheter-associated urinary tract infection: Status: Acute Code(s): T83.511A - Infection and inflammatory reaction due to indwelling urethral catheter, initial encounter; N39.0 - Urinary tract infection, site not specified Problem details: Present on admission (4) Hypothyroid: Status: Acute Code(s): E03.9 - Hypothyroidism, unspecified (5) detention resident: Status: Chronic Code(s): Z78.9 - Other specified health status (6) Decubitus ulcer of sacral region, stage 1: Status: Acute Code(s): L89.151 - Pressure ulcer of sacral region, stage 1 (7) Laceration of urethra: Status: Acute Code(s): S37.33XA - Laceration of urethra, initial encounter Qualifiers: Encounter type: initial encounter Qualified Code(s): S37.33XA - Laceration of urethra, initial encounter (8) Gram negative septic shock: Status: Acute Code(s): A41.50 - Gram-negative sepsis, unspecified; R65.21 - Severe sepsis with septic shock Meds Home Medications and Allergies Home Medications ?Medication ?Instructions ?Recorded ?Confirmed ?Type bisacodyl 10 mg rectal suppository 10 mg MA Q72H 07/31/24 07/31/24 History (Dulcolax (bisacodyl)) docusate sodium 100 mg capsule 100 mg PO DAILY 07/31/24 07/31/24 History (Colace) furosemide 40 mg tablet (Lasix) 40 mg PO DAILY 07/31/24 07/31/24 History hyoscyamine sulfate 0.125 mg 0.125 mg PO BID 07/31/24 07/31/24 History tablet (Levsin) levothyroxine 125 mcg tablet 125 mcg PO DAILY 07/31/24 07/31/24 History (Synthroid) melatonin 3 mg capsule 3 mg PO HS 07/31/24 07/31/24 History midodrine 2.5 mg tablet 2.5 mg PO TID 07/31/24 07/31/24 History multivitamin with minerals 1 tab PO DAILY 07/31/24 07/31/24 History no.14-folic acid 1 mg tablet polyethylene glycol 3350 17 gram 17 g PO DAILY 07/31/24 07/31/24 History oral powder packet (Miralax) potassium chloride 10 mEq 20 meq PO DAILY 07/31/24 07/31/24 History tablet,extended release(part/cryst) sennosides 8.6 mg tablet (senna) 8.6 mg PO DAILY 07/31/24 07/31/24 History sennosides 8.6 mg-docusate sodium 1 tab PO BIDP PRN Constipation 07/31/24 07/31/24 History 50 mg tablet (Stool Softener-Stimulant Laxative) tamsulosin 0.4 mg capsule (Flomax) 0.4 mg PO DAILY 07/31/24 07/31/24 History ertapenem 1 gram solution for 1 g IV DAILY 8 days #10 ea 08/01/24 Rx injection New Prescriptions to Start Prescriptions: ertapeHa Grey Allergies Allergy/AdvReac Type Severity Reaction Status Date / Time No Known Allergies Allergy Verified 12/23/23 13:11 Discharge Plan Disposition Patient Disposition: er Intermediate Care Fac Condition: Fair Discharge Order Discharge Orders: Discharge Order (Routine); Ordered 08/01/24 Ordered By: Ha Hess Follow up Plan Prescriptions/Medication Reconciliation: New ertapenem 1 gram recon soln 1 g IV DAILY 8 Days Qty: 10 0RF Rx Instructions: first dose due 08/02/24 Continued tamsulosin [Flomax] 0.4 mg Capsule 0.4 mg PO DAILY docusate sodium [Colace] 100 mg Capsule 100 mg PO DAILY furosemide [Lasix] 40 mg Tablet 40 mg PO DAILY sennosides [senna] 8.6 mg Tablet 8.6 mg PO DAILY polyethylene glycol 3350 [Miralax] 17 gram Powder In Packet 17 g PO DAILY bisacodyl [Dulcolax (bisacodyl)] 10 mg Suppository 10 mg MA Q72H hyoscyamine sulfate [Levsin] 0.125 mg Tablet 0.125 mg PO BID levothyroxine [Synthroid] 125 mcg Tablet 125 mcg PO DAILY potassium chloride 10 mEq Tablet,Er Particles/Crystals 20 meq PO DAILY multivit w-min #14-folic acid 1 mg Tablet 1 tab PO DAILY melatonin 3 mg Capsule 3 mg PO HS sennosides-docusate sodium [Stool Softener-Stimulant Laxat] 8.6-50 mg tablet 1 tab PO BIDP PRN (Reason: Constipation) Held midodrine 2.5 mg tablet 2.5 mg PO TID Hold Instructions: Please hold with close monitoring of blood pressure. If blood pressures drop with systolics less than 90, resume midodrine Patient Comments: TAKE 1 TABLET BY MOUTH THREE TIMES DAILY Problem Reconciliation Problems Reviewed?: Yes Patient Discharge Instructions ACTIVITY: Continue current activity DIET: continue same diet Patient Instructions: Urinary Tract Infection, Sepsis Print Language: Mauritian Providers Primary Care Provider: Sebastian Peña Admit Provider: Ha Hess Attending Provider: Ha Hess
[2024-08-01] MEDS: ERTAPENEM SODIUM 1 GM in 0.9 % SODIUM CHLORIDE 50 ML IV (10:45)
== END 2024-08-01 11:42 ==
LOC: ER 11:05 → 2ND 11:42
PROVIDERS: Admitting Provider Internal Medicine Adolescent Medicine; Emergency Provider Emergency Medicine; PCP Family Medicine; Visit Provider Internal Medicine Adolescent Medicine
DX: T83.511A Infection and inflammatory reaction due to indwelling urethral catheter, initial encounter (principal); A41.9 Sepsis, unspecified organism; R65.21 Severe sepsis with septic shock; N39.0 Urinary tract infection, site not specified; E03.9 Hypothyroidism, unspecified; L89.151 Pressure ulcer of sacral region, stage 1; K59.09 Other constipation; E78.5 Hyperlipidemia, unspecified; I10 Essential (primary) hypertension; N40.0 Benign prostatic hyperplasia without lower urinary tract symptoms; G47.9 Sleep disorder, unspecified; F03.90 Unspecified dementia, unspecified severity, without behavioral disturbance, psychotic disturbance, mood disturbance, and anxiety; Z79.890 Hormone replacement therapy; Z79.899 Other long term (current) drug therapy; Z74.01 Bed confinement status
CPT/HCPCS: 36415; 71045; 80053; 81001; 82803; 83605; 83735; 84145; 84484; 85025; 85610; 85730; 86140; 87040; 87081; 87086; 87088; 87186; 93005; 99291; G0378; J0131; J1335; J1650; J2543; J7030; J7120

== ENCOUNTER 2024-08-14 07:31 | Emergency (ER) | payer MEDICARE, SELFPAY ==
[2024-08-14] VITALS (10 sets, daily range): BP systolic 100–135; BP diastolic 49–78; PULSE 75–87; RESP 17–21; TEMP 36.7–37.2; O2SAT 96–98; BMI 27.2
--- NOTE | 2024-08-14 07:37 | HMH.EDGENADL ---
Discharge Plan Disposition Patient Disposition: Home, Self-Care Condition: Good Prescriptions Prescriptions: No Action tamsulosin [Flomax] 0.4 mg Capsule 0.4 mg PO DAILY docusate sodium [Colace] 100 mg Capsule 100 mg PO DAILY furosemide [Lasix] 40 mg Tablet 40 mg PO DAILY sennosides [senna] 8.6 mg Tablet 8.6 mg PO DAILY polyethylene glycol 3350 [Miralax] 17 gram Powder In Packet 17 g PO DAILY bisacodyl [Dulcolax (bisacodyl)] 10 mg Suppository 10 mg MS Q72H hyoscyamine sulfate [Levsin] 0.125 mg Tablet 0.125 mg PO BID levothyroxine [Synthroid] 125 mcg Tablet 125 mcg PO DAILY midodrine 2.5 mg tablet 2.5 mg PO TID Patient Comments: TAKE 1 TABLET BY MOUTH THREE TIMES DAILY potassium chloride 10 mEq Tablet,Er Particles/Crystals 20 meq PO DAILY multivit w-min #14-folic acid 1 mg Tablet 1 tab PO DAILY melatonin 3 mg Capsule 3 mg PO HS sennosides-docusate sodium [Stool Softener-Stimulant Laxat] 8.6-50 mg tablet 1 tab PO BIDP PRN (Reason: Constipation) ertapenem 1 gram recon soln 1 g IV DAILY 8 Days Qty: 10 0RF Rx Instructions: first dose due 08/02/24 Referrals Follow up/Referrals: Provider,Referral, MD [Primary Care Provider, Medical] - See instructions Activity Restrictions/Add. Instructions Additional Instructions/Restrictions: Please continue to drink liquids to ensure you are staying hydrated. It appeared that you are slightly dehydrated on your physical exam today. Please return with any new or worsening symptoms. Clinical Impressions Clinical Impression: Episode of altered cognition Print Language Print Language: Yi Discharge ED Provider: Eddie Dumont General Adult HPI General Chief complaint: Weakness Stated complaint: fall/low o2 and BP Time Seen by Provider: 08/14/24 07:37 History of Present Illness HPI narrative: The patient presents to the Emergency Department with a chief complaint of falls, lethargy, and low oxygen levels. The patient has a history of urinary tract infections (UTIs). The patient's caregiver reports that during their last visit, the patient was more alert and oriented, recognizing the caregiver and calling them by name. The patient reportedly fell yesterday, though the circumstances of the fall are unclear, and the patient has limited recollection of the event. The caregiver mentions that the patient recently completed a course of antibiotics for a UTI on August 10. Today, the patient was noted to be lethargic with low oxygen levels, prompting the use of supplemental oxygen, which is not typically required. The patient has complained of head pain in the past, particularly when moving their head. The caregiver notes that this has been an ongoing issue. The patient also mentions falling at some point in the past, stating they were [age] when I went in to get up and out of there and then to get a walk while I run back, though the context of this statement is unclear. The patient appears to have some confusion, asking about the current year during the encounter. There is no mention of any rashes or other visible symptoms on the patient's legs. The patient recently completed antibiotic treatment for a UTI, with the last day of treatment on the . The patient lives in a facility with care staff. Please note that above description of symptoms, in this electronic medical record under categorization of recalled from ER triage doctor by RN are reflective of an initial nursing assessment, however, is not reflective of my full history and physical exam that was personally taken and clarified. Consequentially, this preceding description of symptoms, which may include the patient's categorized chief complaint in the EMR, do not reflect my personal clinical impression, and the ultimate description of history of present illness and patient stated complaints should be deferred to this section of the note. Unless stated otherwise or congruent with this section of the note, additional signs, symptoms, or incongruence should be interpreted as inaccurate with my clinical impression. Related Data Home Medications ?Medication ?Instructions ?Recorded ?Confirmed bisacodyl 10 mg rectal suppository 10 mg MS Q72H 07/31/24 07/31/24 (Dulcolax (bisacodyl)) docusate sodium 100 mg capsule 100 mg PO DAILY 07/31/24 07/31/24 (Colace) furosemide 40 mg tablet (Lasix) 40 mg PO DAILY 07/31/24 07/31/24 hyoscyamine sulfate 0.125 mg 0.125 mg PO BID 07/31/24 07/31/24 tablet (Levsin) levothyroxine 125 mcg tablet 125 mcg PO DAILY 07/31/24 07/31/24 (Synthroid) melatonin 3 mg capsule 3 mg PO HS 07/31/24 07/31/24 midodrine 2.5 mg tablet 2.5 mg PO TID 07/31/24 07/31/24 Held on 08/01/24. Instructions: Please hold with close monitoring of blood pressure. If blood pressures drop with systolics less than 90, resume midodrine multivitamin with minerals 1 tab PO DAILY 07/31/24 07/31/24 no.14-folic acid 1 mg tablet polyethylene glycol 3350 17 gram 17 g PO DAILY 07/31/24 07/31/24 oral powder packet (Miralax) potassium chloride 10 mEq 20 meq PO DAILY 07/31/24 07/31/24 tablet,extended release(part/cryst) sennosides 8.6 mg tablet (senna) 8.6 mg PO DAILY 07/31/24 07/31/24 sennosides 8.6 mg-docusate sodium 1 tab PO BIDP PRN Constipation 07/31/24 07/31/24 50 mg tablet (Stool Softener-Stimulant Laxative) tamsulosin 0.4 mg capsule (Flomax) 0.4 mg PO DAILY 07/31/24 07/31/24 Previous Rx's ?Medication ?Instructions ?Recorded ertapenem 1 gram solution for 1 g IV DAILY 8 days #10 ea 08/01/24 injection Allergies Allergy/AdvReac Type Severity Reaction Status Date / Time No Known Allergies Allergy Verified 12/23/23 13:11 [facility] Disclaimer: The information contained in this section may have been updated after the patient was seen, as this information can be updated by other users. Medical History Cervical disc disorder Insomnia Hypothyroid History of left heart catheterization (LHC) Hyperlipidemia Hypertension Family History Other No significant family history Social History Smoking Status: Former smoker alcohol intake: current current occupational status: unemployed Travel in the last 8 weeks?: None Have you lived/traveled outside US in past 30 days?: No Contact w/someone who lives/traveled outside US past 30 days?: No Exposure to someone with infectious disease in past 14 days?: No Do you have a fever (greater than 100.4 F or 38 C)?: No Have you tested positive for COVID-19?: No Exposed to someone with COVID-19 in past 14 days?: No Do you have a sore throat?: No Do you have a cough?: No Do you have any weakness?: No Do you have any diarrhea?: No Are you experiencing any unusual bleeding?: No Do you have any muscle aches/pain?: No Do you have any abdominal pain?: No Are you experiencing loss of taste or smell?: No Other Medical History Have you received the Flu Vaccine for this season: No Have you received the Pneumonia Vaccine: No ROS Obtained: Yes other As per HPI Physical Exam General General appearance: alert Comment: Chronically altered, oriented x 1, dry mucous membranes, arousable, no focal neurologic deficit appreciated. Head Head exam: atraumatic and normocephalic Eye Eye exam: Present normal appearance Neck Neck exam: Present normal inspection Chest Chest inspection: Present normal inspection and symmetric chest wall rise Respiratory Respiratory exam: Present normal lung sounds bilaterally; Absent respiratory distress Cardiovascular Cardiovascular exam: Present regular rate and normal rhythm Abdominal Exam Abdominal exam: Present soft Neurological Exam Neurological exam: Present alert and oriented X3 Psychiatric Psychiatric exam: Present normal affect Skin Skin exam: Present warm and dry Medical Decision Making Medical Records Medical records reviewed: Yes I reviewed the patient's medical records. Screening: Per USPSTF and CDC recommendations, given the prevalence of disease in our region, it is our hospital?s policy to screen for HIV and viral Hepatitis for all patients aged 18 and over and those with ongoing risk factors. Valentin Inquiry Pt receiving controlled substance: No Vital Signs: 08/14/24 07:30 08/14/24 07:42 08/14/24 08:00 Temperature 98.9 F Temperature Source Oral Pulse Rate 86 86 Pulse Rate [Left Radial] 86 Respiratory Rate 17 17 Blood Pressure 131/73 135/78 Blood Pressure [Right Arm] 131/73 Blood Pressure Mean [Right Arm] 92 02 Sat by Pulse Oximetry 96 97 97 Oxygen Delivery Method Nasal Cannula Nasal Cannula Nasal Cannula Oxygen Flow Rate (LPM) 2 2 2 08/14/24 08:33 08/14/24 09:00 08/14/24 09:30 Temperature Temperature Source Pulse Rate 87 81 79 Pulse Rate [Left Radial] Respiratory Rate 17 18 17 Blood Pressure 123/64 105/49 L 100/66 L Blood Pressure [Right Arm] Blood Pressure Mean [Right Arm] 02 Sat by Pulse Oximetry 96 98 96 Oxygen Delivery Method Nasal Cannula Nasal Cannula Nasal Cannula Oxygen Flow Rate (LPM) 2 2 2 08/14/24 10:00 08/14/24 10:30 08/14/24 11:30 Temperature Temperature Source Pulse Rate 76 75 85 Pulse Rate [Left Radial] Respiratory Rate 17 18 20 Blood Pressure 108/63 L 119/60 122/68 Blood Pressure [Right Arm] Blood Pressure Mean [Right Arm] 02 Sat by Pulse Oximetry 97 97 97 Oxygen Delivery Method Nasal Cannula Nasal Cannula Nasal Cannula Oxygen Flow Rate (LPM) 2 2 2 08/14/24 11:52 Temperature 98.1 F Temperature Source Pulse Rate 86 Pulse Rate [Left Radial] Respiratory Rate 21 Blood Pressure 122/68 Blood Pressure [Right Arm] Blood Pressure Mean [Right Arm] 02 Sat by Pulse Oximetry Oxygen Delivery Method Room Air Oxygen Flow Rate (LPM) Lab Data Lab Results 08/14/24 07:39: WBC 14.3 H, RBC 4.00 L, Hgb 11.5 L, Hct 35.8 L, MCV 89.5, MCH 28.8, MCHC 32.1, RDW 14.6, Plt Count 229, MPV 10.3, Neut % (Auto) 81.1 H, Lymph % (Auto) 12.2, Twiggs % (Auto) 4.2, Eos % (Auto) 1.1, Baso % (Auto) 0.6, Neut # (Auto) 11.6 H, Lymph # (Auto) 1.7, Twiggs # (Auto) 0.6, Eos # (Auto) 0.2, Baso # (Auto) 0.1, Sodium 141, Potassium 3.7, Chloride 104, Carbon Dioxide 31 H, Anion Gap 9.7, BUN 20, Creatinine 1.10, Estimated Creat Clear 66, Estimated GFR 65, Est GFR ( Amer) 78, Glucose 97, Calcium 9.1, Magnesium 2.1, Total Bilirubin 2.5 H, AST 34, ALT 32, Alkaline Phosphatase 99, Total Protein 8.1 D, Albumin 3.9, Globulin 4.2 H, Albumin/Globulin Ratio 0.9 L, Lipase 53, TSH 9.21 H, Free T4 1.44 08/14/24 08:09: VBG pH 7.42 H, VBG pCO2 38.5, VBG pO2 49.2 H, VBG HCO3 24.4, VBG Total CO2 25.6, VBG O2 Saturation 83.4 H, VBG Base Excess -0.1, VBG Lactic Acid 1.6 08/14/24 08:45: Urine Color Yellow, Urine Appearance Clear, Urine pH 6.5, Ur Specific Houck 1.010, Urine Protein Trace, Urine Glucose (UA) Negative, Urine Ketones Negative, Urine Blood Trace-i, Urine Nitrate Negative, Urine Bilirubin Negative, Urine Urobilinogen 1.0, Ur Leukocyte Esterase Negative, Urine RBC Occasional, Urine WBC 3-5, Ur Squamous Epith Cells Occasional, Urine Bacteria Trace 08/14/24 07:39 08/14/24 07:39 Orders (Tests/Meds): ED MEDICATIONS Discontinued Medications Generic Name Dose Route Start Last Admin Trade Name Freq PRN Reason Stop Dose Admin Lactated Ringer's 500 mls @ 999 mls/hr 08/14/24 08:04 08/14/24 08:33 Lactated Ringer's 500ml IV 08/14/24 08:34 999 mls/hr .Q31M ONE Administration ORDERS Category Date Time Status CT cervical spine wo con Stat Cat Scan 08/14/24 08:[address] head/brain wo con Stat Cat Scan 08/14/24 08:05 Completed XR chest portable Stat Exams 08/14/24 08:05 Completed CBC w/Auto Diff [Complete Blood Count Auto Diff] Stat Lab 08/14/24 07:39 Completed CMP [Comprehensive Metabolic Panel] Stat Lab 08/14/24 07:39 Completed Free T4 (Free Thyroxine) Stat Lab 08/14/24 07:39 Completed Lipase Stat Lab 08/14/24 07:39 Completed MAG [Magnesium] Stat Lab 08/14/24 07:39 Completed TSH [Thyroid Stimulating Hormone] Stat Lab 08/14/24 07:39 Completed Urinalysis and Microscopic Stat Lab 08/14/24 08:45 Completed Urine Culture Stat Micro 08/14/24 08:45 Received VBG [Venous Blood Gas] Stat RT 08/14/24 08:09 Completed Medical Decision Narrative: Patient with history and exam per above presenting for evaluation of reported episode of altered mental status earlier today. Patient does have history of dementia and is chronically oriented x 1. I spoke with the hospitalist who recently discharged patient and clinical exam appears to be consistent with baseline. Patient is hypovolemic appearing however is able to tolerate p.o., denies any pain, reported history of trauma however no external evidence of trauma Diagnoses considered include acute kidney injury, UTI, hypovolemia, intracranial hemorrhage, among others ED workup and treatment included: ED MEDICATIONS Discontinued Medications Generic Name Dose Route Start Last Admin Trade Name Freq PRN Reason Stop Dose Admin Lactated Ringer's 500 mls @ 999 mls/hr 08/14/24 08:04 08/14/24 08:33 Lactated Ringer's 500ml IV 08/14/24 08:34 999 mls/hr .Q31M ONE Administration ORDERS Category Date Time Status CT cervical spine wo con Stat Cat Scan 08/14/24 08:[address] head/brain wo con Stat Cat Scan 08/14/24 08:05 Completed XR chest portable Stat Exams 08/14/24 08:05 Completed CBC w/Auto Diff [Complete Blood Count Auto Diff] Stat Lab 08/14/24 07:39 Completed CMP [Comprehensive Metabolic Panel] Stat Lab 08/14/24 07:39 Completed Free T4 (Free Thyroxine) Stat Lab 08/14/24 07:39 Completed Lipase Stat Lab 08/14/24 07:39 Completed MAG [Magnesium] Stat Lab 08/14/24 07:39 Completed TSH [Thyroid Stimulating Hormone] Stat Lab 08/14/24 07:39 Completed Urinalysis and Microscopic Stat Lab 08/14/24 08:45 Completed Urine Culture Stat Micro 08/14/24 08:45 Received VBG [Venous Blood Gas] Stat RT 08/14/24 08:09 Completed Labs were independently interpreted by me, significant for leukocytosis, urinary catheter was exchanged with no convincing evidence of acute cystitis. Imaging was independently visualized and interpreted by me, significant for no acute findings Please refer to radiology report for full details. At this time, unclear etiology of preceding symptoms that prompted evaluation today however patient appears to be at baseline. He is [facility] Return precautions given Critical Care Critical Care Time Critical Care Time: No
--- OUTSIDE RECORDS SUMMARY | 2024-08-14 07:54 | XMS_ITS | Data Portability ---
Author Organization [facility] ADMIN Address [address] [place] [id number] Care Team Providers Care Chair Name Role Phone RUFINA JAMES Primary Care Provider Assessment No assessment recorded. Plan of Treatment Reminders Order Date Submit Date Provider Last Modified By Organization Details Last Modified Time Details Appointments None recorded. Lab None recorded. 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 Doyle for his cellulitis and significant onychomycos is 2022 023 [email or web address] Donny Doyle DPM, [address] [place], [address], 3 14:01:16 Procedures None recorded. Surgeries None recorded. Imaging None recorded. Medication Orders doxycycline hyclate 100 mg capsule 2022 023 MYLES [facility], [address] [place] [address] [address] [place], [place], [id number], 3 14:21:20 Augmentin 875 mg-125 mg tablet 2022 023 [email or web address] [facility], [address] [place] [address] [address] [place], [place], [id number], 3 13:36:27 Patient TargetsNo targets recorded. Patient Instructions Encounter Date Encounter Id Patient Instructions Last Modified By Organization Details Last Modified Time 08/21/2022 [id number] I contacted the emergency room at [facility]. I am going to send the patient there. He can expect admission for the cellulitis and can also expect IV therapy along with diagnostic studies. [email or web address] Not available 08/21/2022 15:53:16 09/10/2022 [id number] distraction pressure was applied to the tick and released. 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 Doyle for his cellulitis and significant onychomycosis Referring Physician: Rufina James, Family Medicine, Encounter Date: 08/29/2022 Results Created Date Observation Date Name Description Value Unit Range Abnormal Flag Note LastModifiedBy Organization Detail LastModifiedTime 04/13/19 24 04/11/2023 US, echoc ardio gram, trans thora cic, compl ete, w/ color flow No observ ation record ed. [email or web address] [facility] (Central Scheduling) [address] [facility], [place], [address], 04/15/2023 10:20:37 Result Notes None recorded. Problems Name Problem SNOMED Code Status Onset Date Resolution Date Notes Provider Name and Address Organization Details Recorded Time Pain in left foot 9076984653161 07 Active 2022 RADHA NORTON [facility] [employer] [facility],[address] [place] [address], [phone], [facility] & [place] 3 15:52:43 Cellulitis of left foot 1467962379909 9101 Active 2022 RADHA NORTON [facility] [employer] | [employer] [address], [place], [address], [facility] & [place] 3 15:52:49 Onychomycos is 112979759 Active 2022 RADHA NORTON [facility] [employer] [facility],[address], [place], [address], [facility] & [place] 3 14:52:48 Problem Notes None recorded. Medical Equipment None Reported. [...] /min 138 mm[Hg] 84 mm[Hg] Mora Shetty [facility] & [place] 3 15:35:27 Date Recorded Body temperature Oxygen saturation Oxygen saturation in Arterial blood by Pulse oximetry Heart rate Systolic blood pressure Diastolic blood pressure Provider Name and Address Organization Details Last Updated DateTime 3 98.6 [degF] 97 % 97 % 88 /min 150 mm[Hg] 76 mm[Hg] Anny Rizo [facility] & [place] 3 14:28:32 Date Recorded Body temperature Oxygen saturation Oxygen saturation in Arterial blood by Pulse oximetry Heart rate Systolic blood pressure Diastolic blood pressure Provider Name and Address Organization Details Last Updated DateTime 3 97.5 [degF] 96 % 96 % 74 /min 148 mm[Hg] 82 mm[Hg] Stacy Lr [facility] & [place] 3 13:36:13 Social History None recorded. Functional Status [...] Time Influenza, high-dose, quadrivalent, PF 01/14/2020 completed Annyjelani Robertst null, [place] - [facility] & [place] 08/29/2022 14:27:33 COVID-19, mRNA, LNP-S, PF, 100 mcg/0.5mL dose or 50 mcg/0.25mL dose 06/07/2020 completed Anny Leet null, [place] - [facility] - [place] & [place] 08/29/2022 14:27:34 COVID-19, mRNA, LNP-S, PF, 100 mcg/0.5mL dose or 50 mcg/0.25mL dose 07/08/2020 completed Anny Leet null, [place] - [facility] - [place] & [place] 08/29/2022 14:27:34 Past Encounters Encounter ID Performer Location Encounter Start Date Encounter Closed Date Diagnosis/Indication Diagnosis SNOMED-CT Code Diagnosis ICD10 Code Diagnosis Note [id number] Izzy Griffin DO [address] [address] 08/21/2022 15:14:07 08/21/2022 15:44:19 Pain in left foot [id number] 49770 M79.672 Cellulitis of left foot [id number] 9337237 L03.116 [id number] Izzy Griffin DO [address] [address] 08/29/2022 14:16:50 08/29/2022 14:56:13 Cellulitis of left foot [id number] 8640215 L03.116 Pain in left foot 832218 4979 77143 M79.672 Onychomycosis 377420973 B35.1 [id number] Izzy Griffin DO [facility] [address] [place] [address] 09/10/2022 13:28:18 09/10/2022 14:07:13 Bite of tick 466598065 W57.XXXA Cellulitis of left foot 2634721562 9944633 L03.116 Onychomycosis 746732771 B35.1 Health Concerns Section Related Observation LastModified by Organization Detai ls LastModified Time None Recorded Concern Status LastModified by Organization Details LastModified Time None Recorded Advance Directives Directive None Recorded Payers Insurance Date Sequence Insurance Name Policy Number Policy Hathaway Covered Member ID Hathaway Member ID Guarantor Name 01/26/2024 [place] [employer] [facility] Vega A Conkel [id number] V[employer] Conkel 09/07/2022 1 [place] Vega A Conkel [id number] Vega A Conkel 11/23/2019 1 [place] V[place] A Conkel [id number] Vega A Conkel 01/26/2024 [place] V[place] A Conkel [id number] Vega A Conkel 09/07/2022 1 [place] [employer] [place] [facility] Vega A Conkel [id number] Vega A Conkel 11/23/2019 2 [place] [employer] [place] [facility] Vega A Conkel [id number] Vega A Conkel Notes Date Note [...] to do his Daily activities. RADHA NORTON [address] [facility],[address], [place], [address], [facility] - [facility] & [place] 08/22/2022 09:22:49 08/29/2022 text/html Patient presents the [...] days worth a medications. RADHA NORTON [address] [facility],[address], [place], [address], [facility] - [facility] & [place] 08/30/2022 16:13:17 09/10/2022 text/html patient presents today [...] get it to release. RADHA NORTON [address] [facility],[address], [place], [address], [place] - [facility] & [place] 09/11/2022 09:57:32"
--- NOTE | 2024-08-14 08:05 | XR_ITS ---
FINAL REPORT CLINICAL HISTORY: Shortness of breath, ams COMPARISON: 07/31/2024 FINDINGS: The heart size is mildly enlarged. The mediastinum is normal. The lungs are underinflated. There is no focal infiltrate or edema. There are no pleural effusions. There is no pneumothorax. There is no acute osseous abnormality. There are stable old healed fracture deformities of multiple posterior left ribs. IMPRESSION: No acute cardiopulmonary process Reviewed, Interpreted and Dictated by Lucas Skaggs MD Transcribed by Isa Vargas Authenticated and [facility]
--- NOTE | 2024-08-14 08:05 | CT_ITS ---
FINAL REPORT TECHNIQUE: Axial images were obtained of the cervical spine by computed tomography. Coronal and sagittal reconstruction process performed. This study was performed with techniques to keep radiation doses as low as reasonably achievable (ALARA). Individualized dose reduction techniques using automated exposure control or adjustment of mA and/or kV according to the patient''s size were employed. CLINICAL HISTORY: reported fall, ams, acute on chronic COMPARISON: 11/28/2023 FINDINGS: There is accentuation of the upper thoracic kyphosis. Positioning is nonstandard. Mild disc space narrowing is noted throughout the cervical discs, particularly at C6-7. There is minimal spondylolisthesis of C5 on C6. Findings are stable compared to the previous exam. There is moderate facet sclerosis, particularly in the left mid cervical spine. IMPRESSION: Suboptimal nonstandard positioning with no acute bony abnormality identified. Reviewed, Interpreted and Dictated by Lucas Skaggs MD Transcribed by Isa Vargas Authenticated and [facility]
--- NOTE | 2024-08-14 08:05 | CT_ITS ---
FINAL REPORT TECHNIQUE: Axial CT images were performed through the head. Coronal and sagittal reformatted images were submitted. This study was performed with techniques to keep radiation doses as low as reasonably achievable (ALARA). Individualized dose reduction techniques using automated exposure control or adjustment of mA and/or kV according to the patient's size were employed. CLINICAL HISTORY: Reported fall, AMS, acute on chronic COMPARISON: 03/14/2024 FINDINGS: None standard imaging planes. The ventricles are enlarged. There is mild to moderate atrophy. There are extensive changes of chronic microvascular ischemia. There is no evidence of hemorrhage. No masses are identified. No extra-axial fluid is seen. There is a large air-fluid level in the right maxillary sinus. There is minimal mucoperiosteal thickening in the sphenoid sinus. The sinusitis has improved compared to previous exam. IMPRESSION: Extensive changes of chronic microvascular ischemia. Improved paranasal sinusitis with residual acute right maxillary sinusitis. Reviewed, Interpreted and Dictated by Lucas Skaggs MD Transcribed by Rimma Peñaloza Authenticated and [facility]
--- NOTE | 2024-08-14 08:09 | PC.NURSE ---
resp and lab called for VBG
--- NOTE | 2024-08-14 08:13 | ECG_ITS ---
APPROVED REPORT Exam: Resting ECG HR:82 bpm ECG Measurements Heart Rate 82 AXES NJ 184 P 92 QRSd 90 QRS 34 QT 371 T 34 QTc 409 Conclusion SINUS RHYTHM NORMAL ECG Electronically signed by : ESSIE BAH, 08/15/2024 04:53:04
[2024-08-14 08:15] LABS: Lactate Venous 1.6 mmol/L (0.4-2.0); VBG Base Excess -0.1 mmol/L (-2.4-2.3); VBG HCO3 24.4 mmol/L (23-30); VBG Oxygen Saturation 83.4 % (50-70); VBG PCO2 38.5 mmol/L (35-51); VBG PH 7.42 mmol/L (7.31-7.41); VBG PO2 49.2 mmol/L (28-40); VBG Total CO2 25.6 mmol/L (23-27)
--- NOTE | 2024-08-14 08:16 | PC.NURSE ---
pt to scan via stretcher
[2024-08-14 08:18] LABS: Basophils # 0.1 K/mm3 (0-0.2); Basophils % 0.6 % (0.1-2.0); Eosinophils # 0.2 Kmm3 (0.0-0.4); Eosinophils % 1.1 % (0.1-12.0); Hematocrit 35.8 % (42.0-52.0); Hemoglobin 11.5 g/dL (14.1-18.0); Immature Granulocytes # 0.11 10^3uL; Immature Granulocytes % 0.8 %; Lymphocytes # 1.7 K/mm3 (0.7-4.5); Lymphocytes % 12.2 % (10-50); Mean Corpuscular HGB Conc 32.1 g/dL (31.8-35.4); Mean Corpuscular Hemoglobin 28.8 pg (27.0-31.2); Mean Corpuscular Volume 89.5 fl (80-94); Mean Platelet Volume 10.3 fl (7.4-10.4); Monocytes # 0.6 K/mm3 (0.1-1.0); Monocytes % 4.2 % (1.7-9.3); Neutrophils # 11.6 K/mm3 (1.8-7.8); Neutrophils % 81.1 % (37.0-80.0); Nucleated Red Blood Cells # 0 10^3/uL; Nucleated Red Blood Cells % 0 %; Platelet Count 229 K/mm3 (142-424); Red Cell Distribution Width 14.6 % (11.5-17.5); Red Cell Distribution Width-SD 48.1 fL; White Blood Count 14.3 K/mm3 (4.8-10.8)
[2024-08-14 08:23] LABS: Alanine Aminotransferase 32 U/L (12-78); Albumin Level 3.9 g/dl (3.5-5.0); Albumin/Globulin Ratio 0.9 (1.1-1.8); Alkaline Phosphatase 99 U/L (38-126); Anion Gap 9.7 mEq/L (5-15); Aspartate Amino Transferase 34 U/L (17-59); Bilirubin,Total 2.5 mg/dl (0.2-1.3); Blood Urea Nitrogen 20 mg/dl (9-20); Calcium 9.1 mg/dl (8.4-10.2); Carbon Dioxide 31 mmol/L (22.0-30.0); Chloride 104 mmol/L (98-107); Creatinine Clearance Estimated 66 mL/min (50-200); Estimated Glomerular Filt Rate 65 ml/min (>60); GFR (African American) 78 ML/MIN (>60); Globulin 4.2 g/dL (1.3-3.2); Glucose 97 mg/dl (74-100); Lipase 53 U/L (23-300); Magnesium 2.1 mg/dl (1.6-2.3); Potassium 3.7 mmoL/L (3.5-5.1); Sodium 141 mmol/L (136-145); Total Protein,Serum 8.1 g/dl (6.3-8.2)
--- NOTE | 2024-08-14 08:30 | PC.NURSE ---
pt back to room
[2024-08-14] MEDS: RINGERS SOLUTION,LACTATED 500 ML 999 ML IV (08:33)
--- NOTE | 2024-08-14 08:50 | PC.NURSE ---
pt presented to ED with jarrett. TRN changed jarrett with 16F, 10ml inserted into balloon. urine sample sent to lab
[2024-08-14 08:54] LABS: Thyroid Stimulating Hormone 9.21 uIU/mL (0.465-4.68)
--- NOTE | 2024-08-14 09:11 | PC.NURSE ---
poa at bedside no needs voiced at this time
[2024-08-14 09:25] LABS: Microscopic, Urine URINE MICROSCOPIC (MICROSCOPIC)
[2024-08-14 09:27] LABS: Appearance,Urine CLEAR (Clear); Bilirubin,Urine Negative (Negative); Blood, Urine TRACE-I (Negative); Color,Urine YELLOW (Yellow); Glucose,Urine (UA) Negative (Negative); Ketones,Urine Negative (Negative); Leukocyte Esterase,Urine Negative (Negative); Nitrate,Urine Negative (Negative); PH,Urine 6.5 (5.0-8.5); Protein,Urine TRACE (Negative)
[2024-08-14 09:34] LABS: RBC,Urine Occasional #/hpf (0-3); Squamous Epithelial Cell,Urine Occasional #/hpf (0-5)
[2024-08-14 09:35] LABS: Bacteria,Urine Trace /lpf
[2024-08-14 10:14] LABS: Free T4 (Free Thyroxine) 1.44 ng/dl (0.78-2.19)
--- NOTE | 2024-08-14 10:34 | PC.NURSE ---
darin gaytan on phone with hospital medicine.
--- NOTE | 2024-08-14 10:38 | PC.NURSE ---
mitchell oconnor called report back to [facility]
--- NOTE | 2024-08-14 10:49 | PC.NURSE ---
called ems for transport back to [facility]
--- NOTE | 2024-08-19 09:47 | EXP.EVENT.NO ---
I was notified of positive urine culture for Enterococcus faecalis and Proteus mirabilis. Enterococcus faecalis is sensitive to penicillin and Proteus is sensitive to Bactrim, so I prescribed both of these antibiotics to the pharmacy supplier for the patient's nursing facility. Nursing staff relayed the message.
--- NOTE | 2024-08-19 10:13 | PC.NURSE ---
Urine culture results reviewed by Dr. Hill. Antibiotics sent to pharmacy. Spoke with [facility] listed in chart, informed him that antibiotics had been sent. He asked that I call [facility] where patient resides. Spoke with Shalini, a nurse there and she asked that I fax results to [phone].
== END 2024-08-14 11:55 | disposition home or self-care (01) ==
PROVIDERS: Emergency Provider Emergency Medicine
DX: R41.82 Altered mental status, unspecified (principal); Z87.891 Personal history of nicotine dependence
CPT/HCPCS: 51702; 70450; 71045; 72125; 80053; 81001; 82803; 83690; 83735; 84439; 84443; 85025; 87086; 87088; 87186; 93005; 99285; J7120